=== PATIENT | female | born 1985 ===

== ENCOUNTER 2018-01-03 06:02 | Inpatient (IN) ==
[2018-01-03] MEDS ORDERED: FAMOTIDINE 20 MG/2 ML VIAL IV STA (06:32)
[2018-01-03] MEDS ORDERED: SODIUM CHLORIDE 0.9% 1,000 ML IV STA (06:32)
[2018-01-03] MEDS ORDERED: fentaNYL 100 MCG/2 ML VIAL IV STA (06:32)
[2018-01-03] MEDS ORDERED: ONDANSETRON 4 MG/2 ML VIAL IV STA (06:32)
[2018-01-03] MEDS ORDERED: cefOXitin 2,000 MG in SYRINGE 1 EACH IV ONE ×2 (07:32→07:40)
[2018-01-03] MEDS ORDERED: HYDROmorphone 2 MG/1 ML VIAL IV PRN ×2 (07:33)
[2018-01-03] MEDS ORDERED: METOCLOPRAMIDE 10 MG/2 ML VIAL ONE (07:56)
[2018-01-03] MEDS ORDERED: BUPIVACAINE MPF 0.25% /EPI 30 ML VIAL ONE (08:00)
[2018-01-03] MEDS ORDERED: LIDOCAINE 1%/EPI INJ 20 ML VIAL ONE (08:01)
[2018-01-03] MEDS ORDERED: TISSUE ADHESIVE 1 EACH APPLICATOR TOP ONE (08:03)
[2018-01-03] MEDS ORDERED: PROPOFOL 200 MG/20 ML VIAL IV ONE (09:24)
[2018-01-03] MEDS ORDERED: NEOSTIGMINE 10 MG/10 ML VIAL ONE (09:24)
[2018-01-03] MEDS ORDERED: KETOROLAC 30 MG/1 ML VIAL ONE (09:24)
[2018-01-03] MEDS ORDERED: DESFLURANE 1 UNIT/15 MINUTE INH ONE (09:24)
[2018-01-03] MEDS ORDERED: SUCCINYLCHOLINE 200 MG/10 ML VIAL ONE (09:24)
[2018-01-03] MEDS ORDERED: PROMETHAZINE 25 MG/1 ML VIAL ONE (09:24)
[2018-01-03] MEDS ORDERED: LACTATED RINGERS 1,000 ML IV ONE (09:24)
[2018-01-03] MEDS ORDERED: ROCURONIUM 100 MG/10 ML VIAL IV ONE (09:24)
[2018-01-03] MEDS ORDERED: GLYCOPYRROLATE 0.4 MG/2 ML VIAL ONE (09:24)
[2018-01-03] MEDS ORDERED: hydrALAZINE 20 MG/1 ML VIAL IV STA (09:41)
[2018-01-03] MEDS ORDERED: hydrALAZINE 20 MG/1 ML VIAL ONE (09:42)
[2018-01-03] MEDS: MORPHINE 4 MG/1 ML VIAL IV PRN ×2 (14:32→19:46)
[2018-01-03] MEDS: ACETAMINOPHEN 325 MG TABLET PO PRN (16:33)
[2018-01-03] MEDS: LACTATED RINGERS 1,000 ML IV SCH ×2 (16:34→16:37)
[2018-01-03] MEDS: PANTOPRAZOLE 40 MG TABLET PO SCH (16:34)
[2018-01-03] MEDS: INSULIN NPH/REGULAR 70/30 100 UNIT/ML SUBCUT SCH (19:09)
[2018-01-03] MEDS: LATANOPROST 0.005% OPH SOLN 2.5 ML BOTTLE BOTH EYES SCH (21:15)
[2018-01-04] MEDS: LACTATED RINGERS 1,000 ML IV SCH ×3 (01:09→16:08)
[2018-01-04] MEDS: ONDANSETRON 4 MG/2 ML VIAL IV PRN (05:30)
[2018-01-04 05:46] LABS: Basophils % 0.1 % (0.0-0.8); Eosinophils % 0.1 % (0.00-10.9); Hematocrit 21.4 VOL% (35.7-47.0); Immature Granulocytes % 0.9 %; Immature Granulocytes Absolute 0.13 #; Lymphocytes # 2.4 10*3/uL (1.4-4.0); Lymphocytes % 16.4 % (21.3-54.2); Mean Corpuscular HGB Conc 32.7 GM/DL (32-36); Mean Corpuscular Hemoglobin 32 PG (27-34); Mean Corpuscular Volume 98.6 FL (87-102); Mean Platelet Volume 9.2 FL (9.6-12.0); Monocytes % 6.8 % (1.7-12.7); Neutrophils # 11.2 10*3/uL (1.4-7.4); Neutrophils % 75.7 % (38.7-73.9); Platelet Count 396 T/CUMM (130-400); Red Blood Count 2.17 MC/CUMM (3.8-5.5); Red Cell Distribution Width 13.9 % (9.3-17.3); White Blood Count 14.7 T/CUMM (4-12)
[2018-01-04 06:06] LABS: Calcium 6.3 MG/DL (8.5-10.1); Osmolality,Calculated 285.4 MOS/KG (273-304); Potassium 3.2 MMOL/L (3.5-5.1)
[2018-01-04] MEDS ORDERED: SODIUM CHLORIDE 0.9% 1,000 ML IV PRN (07:09)
[2018-01-04] MEDS: PANTOPRAZOLE 40 MG TABLET PO SCH (09:03)
[2018-01-04] MEDS: FUROSEMIDE 40 MG TABLET PO SCH (09:03)
[2018-01-04] MEDS: INSULIN NPH/REGULAR 70/30 100 UNIT/ML SUBCUT SCH ×2 (09:04→15:50)
[2018-01-04] MEDS: ACETAMINOPHEN 325 MG TABLET PO PRN (10:56)
[2018-01-04] MEDS: MORPHINE 4 MG/1 ML VIAL IV PRN ×2 (17:59→20:53)
[2018-01-04] MEDS: LATANOPROST 0.005% OPH SOLN 2.5 ML BOTTLE BOTH EYES SCH (20:54)
[2018-01-05] MEDS: LACTATED RINGERS 1,000 ML IV SCH ×3 (00:15→21:22)
[2018-01-05] MEDS: MORPHINE 4 MG/1 ML VIAL IV PRN ×2 (00:15→21:29)
[2018-01-05] MEDS: ONDANSETRON 4 MG/2 ML VIAL IV PRN ×2 (04:16→15:13)
[2018-01-05 05:52] LABS: Basophils % 0.1 % (0.0-0.8); Eosinophils # 0.1 10*3/uL (0.0-0.87); Eosinophils % 0.4 % (0.00-10.9); Hemoglobin 9.1 GM/DL (12.0-16.0); Immature Granulocytes % 1.5 %; Lymphocytes # 2.1 10*3/uL (1.4-4.0); Lymphocytes % 15.6 % (21.3-54.2); Mean Corpuscular HGB Conc 33.7 GM/DL (32-36); Mean Corpuscular Hemoglobin 31 PG (27-34); Mean Corpuscular Volume 91.8 FL (87-102); Mean Platelet Volume 9.4 FL (9.6-12.0); Neutrophils # 10.2 10*3/uL (1.4-7.4); Neutrophils % 75.4 % (38.7-73.9); Platelet Count 411 T/CUMM (130-400); Red Blood Count 2.94 MC/CUMM (3.8-5.5); Red Cell Distribution Width 15.2 % (9.3-17.3); White Blood Count 13.5 T/CUMM (4-12)
[2018-01-05] MEDS: PANTOPRAZOLE 40 MG TABLET PO SCH (08:46)
[2018-01-05] MEDS: FUROSEMIDE 40 MG TABLET PO SCH (08:46)
[2018-01-05] MEDS ORDERED: IRON SUCROSE 300 MG in SODIUM CHLORIDE 0.9% 100 ML IV ONE (09:00)
[2018-01-05] MEDS ORDERED: ALBUTEROL 2.5 MG/3 ML NEB RESP TX PRN (09:00)
[2018-01-05] MEDS: INSULIN NPH/REGULAR 70/30 100 UNIT/ML SUBCUT SCH ×2 (09:06→16:42)
[2018-01-05 10:49] LABS: Calcium 6.6 MG/DL (8.5-10.1); Osmolality,Calculated 284.4 MOS/KG (273-304); Potassium 3.5 MMOL/L (3.5-5.1)
[2018-01-05 12:13] LABS: Hematocrit 27.7 VOL% (35.7-47.0); Hemoglobin 9.5 GM/DL (12.0-16.0)
[2018-01-05] MEDS: ACETAMINOPHEN 325 MG TABLET PO PRN (17:43)
[2018-01-05] MEDS ORDERED: LATANOPROST 0.005% OPH SOLN 2.5 ML BOTTLE BOTH EYES SCH (21:00)
[2018-01-05] MEDS: LATANOPROST 0.005% OPH SOLN 2.5 ML BOTTLE BOTH EYES SCH (21:21)
[2018-01-05] MEDS: cloNIDine 0.1 MG TABLET PO SCH (21:21)
[2018-01-06 05:45] LABS: Basophils % 0.3 % (0.0-0.8); Eosinophils # 0.1 10*3/uL (0.0-0.87); Eosinophils % 0.8 % (0.00-10.9); Hemoglobin 8.9 GM/DL (12.0-16.0); Immature Granulocytes % 1.8 %; Immature Granulocytes Absolute 0.21 #; Lymphocytes # 1.7 10*3/uL (1.4-4.0); Lymphocytes % 13.9 % (21.3-54.2); Mean Corpuscular HGB Conc 34.2 GM/DL (32-36); Mean Corpuscular Hemoglobin 31 PG (27-34); Mean Corpuscular Volume 91.2 FL (87-102); Mean Platelet Volume 9.3 FL (9.6-12.0); Monocytes # 0.8 10*3/uL (0.11-0.8); Monocytes % 6.4 % (1.7-12.7); Neutrophils # 9.2 10*3/uL (1.4-7.4); Neutrophils % 76.8 % (38.7-73.9); Platelet Count 442 T/CUMM (130-400); Red Blood Count 2.85 MC/CUMM (3.8-5.5)
[2018-01-06 06:10] LABS: Calcium 7.1 MG/DL (8.5-10.1); Osmolality,Calculated 279.7 MOS/KG (273-304)
[2018-01-06] MEDS: ACETAMINOPHEN 325 MG TABLET PO PRN (06:33)
[2018-01-06] MEDS ORDERED: IRON SUCROSE 300 MG in SODIUM CHLORIDE 0.9% 100 ML IV ONE (08:00)
[2018-01-06 09:10] LABS: Calcium 7.1 MG/DL (8.5-10.1); Osmolality,Calculated 281.5 MOS/KG (273-304); Potassium 3.2 MMOL/L (3.5-5.1)
[2018-01-06] MEDS ORDERED: MAGNESIUM SULF RIDER 4 GM in PREMIX 1 EACH IV PRN (09:16)
[2018-01-06] MEDS ORDERED: MAGNESIUM SULF RIDER 2 GM in PREMIX 1 EACH IV PRN (09:16)
[2018-01-06] MEDS: INSULIN NPH/REGULAR 70/30 100 UNIT/ML SUBCUT SCH (09:25)
[2018-01-06] MEDS: FUROSEMIDE 40 MG TABLET PO SCH (09:29)
[2018-01-06] MEDS: cloNIDine 0.1 MG TABLET PO SCH (09:29)
[2018-01-06] MEDS: PANTOPRAZOLE 40 MG TABLET PO SCH (09:29)
[2018-01-06] MEDS ORDERED: MAGNESIUM SULF RIDER 4 GM in PREMIX 1 EACH IV ONE (09:30)
[2018-01-06] MEDS: LACTATED RINGERS 1,000 ML IV SCH (10:17)
[2018-01-06] MEDS: POTASSIUM CHLORIDE 20 MEQ TABLET PO PRN ×3 (10:19→15:13)
[2018-01-06] MEDS ORDERED: cloNIDine 0.1 MG TABLET PO ONE (11:02)
[2018-01-06 12:12] VITALS: BP 166/102
[2018-01-06] MEDS ORDERED: cloNIDine 0.1 MG TABLET PO SCH (21:00)
== END 2018-01-06 15:30 | disposition home or self-care (01) | DRG 225 ==
LOC: EDUNIT# → EDBD → N.ED 06:02 → N.2E 07:17 → N.EDINP 07:33 → N.2E 12:10
PROVIDERS: ADMIT Surgery; ATTEND Surgery

== ENCOUNTER 2018-03-14 07:59 | Inpatient (IN) ==
[2018-03-14] MEDS ORDERED: GLUCAGON 1 MG VIAL IM PRN (10:41)
[2018-03-14] MEDS ORDERED: DEXTROSE 50% 25 GM/50 ML VIAL IV PRN (10:41)
[2018-03-14] MEDS ORDERED: ZALEPLON 5 MG CAPSULE PO PRN (10:43)
[2018-03-14] MEDS ORDERED: PROMETHAZINE 25 MG TABLET PO PRN (10:43)
[2018-03-14] MEDS ORDERED: DOCUSATE SODIUM 100 MG CAPSULE PO PRN (10:43)
[2018-03-14] MEDS ORDERED: BISACODYL 5 MG TABLET PO PRN (10:43)
[2018-03-14] MEDS ORDERED: guaiFENesin/DM ER 600-30 MG TABLET PO PRN (10:43)
[2018-03-14 11:02] LABS: Basophils # 0.1 10*3/uL (0.0-0.2); Basophils % 0.4 % (0.0-0.8); Eosinophils % 0.3 % (0.00-10.9); Hematocrit 33.2 VOL% (35.7-47.0); Hemoglobin 11.4 GM/DL (12.0-16.0); Immature Granulocytes % 0.4 %; Immature Granulocytes Absolute 0.05 #; Lymphocytes # 2.9 10*3/uL (1.4-4.0); Mean Corpuscular HGB Conc 34.3 GM/DL (32-36); Mean Corpuscular Hemoglobin 32 PG (27-34); Mean Corpuscular Volume 93.8 FL (87-102); Mean Platelet Volume 9.4 FL (9.6-12.0); Monocytes # 0.7 10*3/uL (0.11-0.8); Monocytes % 5.3 % (1.7-12.7); Neutrophils # 9.5 10*3/uL (1.4-7.4); Neutrophils % 71.6 % (38.7-73.9); Platelet Count 570 T/CUMM (130-400); Red Blood Count 3.54 MC/CUMM (3.8-5.5); Red Cell Distribution Width 13.8 % (9.3-17.3); White Blood Count 13.3 T/CUMM (4-12)
[2018-03-14 11:10] LABS: PT Patient Result 10.6 SECS
[2018-03-14] MEDS: INSULIN LISPRO 100 UNIT/ML SUBCUT SCH ×3 (11:25→21:12)
[2018-03-14 11:39] LABS: Albumin 3.3 G/DL (3.4-5.0); Bilirubin,Total 0.7 MG/DL (0.2-1.0); Calcium 7.1 MG/DL (8.5-10.1); Osmolality,Calculated 297.5 MOS/KG (273-304); Potassium 3.1 MMOL/L (3.5-5.1); Total Protein 9.4 G/DL (6.4-8.3)
[2018-03-14] MEDS ORDERED: CALCIUM GLUCONATE 2,000 MG in SODIUM CHLORIDE 0.9% 100 ML IV PRN (14:54)
[2018-03-14] MEDS ORDERED: POTASSIUM CHLORIDE 20 MEQ TABLET PO ONE (14:54)
[2018-03-14] MEDS: ENOXAPARIN 30 MG/0.3 ML SYRINGE SUBCUT SCH (21:12)
[2018-03-14] MEDS: ONDANSETRON 4 MG/2 ML VIAL IV PRN (21:13)
[2018-03-15 06:45] LABS: Basophils # 0.1 10*3/uL (0.0-0.2); Basophils % 0.4 % (0.0-0.8); Eosinophils # 0.2 10*3/uL (0.0-0.87); Eosinophils % 1.3 % (0.00-10.9); Hematocrit 30.5 VOL% (35.7-47.0); Hemoglobin 10.3 GM/DL (12.0-16.0); Immature Granulocytes % 0.5 %; Immature Granulocytes Absolute 0.06 #; Lymphocytes # 3.4 10*3/uL (1.4-4.0); Lymphocytes % 30.2 % (21.3-54.2); Mean Corpuscular HGB Conc 33.8 GM/DL (32-36); Mean Corpuscular Hemoglobin 32 PG (27-34); Mean Corpuscular Volume 94.4 FL (87-102); Mean Platelet Volume 9.4 FL (9.6-12.0); Monocytes # 0.8 10*3/uL (0.11-0.8); Monocytes % 6.7 % (1.7-12.7); Neutrophils # 6.8 10*3/uL (1.4-7.4); Neutrophils % 60.9 % (38.7-73.9); Platelet Count 510 T/CUMM (130-400); Red Blood Count 3.23 MC/CUMM (3.8-5.5); Red Cell Distribution Width 14.3 % (9.3-17.3); White Blood Count 11.2 T/CUMM (4-12)
[2018-03-15 07:13] LABS: Albumin 2.7 G/DL (3.4-5.0); Bilirubin,Total 0.7 MG/DL (0.2-1.0); Calcium 6.9 MG/DL (8.5-10.1); Osmolality,Calculated 299.4 MOS/KG (273-304); Potassium 3.5 MMOL/L (3.5-5.1); Total Protein 7.8 G/DL (6.4-8.3)
[2018-03-15] MEDS: INSULIN LISPRO 100 UNIT/ML SUBCUT SCH ×4 (07:23→20:17)
[2018-03-15 07:33] LABS: Parathyroid Hormone Intact 641.7 PG/ML (18.4-80.1)
[2018-03-15] MEDS: PANTOPRAZOLE 40 MG TABLET PO SCH (08:07)
[2018-03-15] MEDS ORDERED: CALCIUM GLUCONATE 2,000 MG in SODIUM CHLORIDE 0.9% 100 ML IV PRN (09:21)
[2018-03-15 09:29] LABS: Hepatitis A Ab IgM Quant 0.24 Index; Hepatitis A Ab IgM Result Negative (Negative); Hepatitis B Core IgM Quant < 0.05 Index; Hepatitis B Core IgM Result Negative (Negative); Hepatitis B Surface Ag Result Negative (Negative); Hepatitis C Virus Ab Quant 0.06 Index; Hepatitis C Virus Ab Result Negative (Negative)
[2018-03-15] MEDS: CALCIUM ACETATE 667 MG CAPSULE PO SCH ×2 (12:20→16:14)
[2018-03-15] MEDS: ENOXAPARIN 30 MG/0.3 ML SYRINGE SUBCUT SCH (21:03)
[2018-03-16] MEDS ORDERED: ceFAZolin 1,000 MG in SYRINGE 1 EACH IV ONE (06:30)
[2018-03-16 06:50] LABS: Basophils # 0.1 10*3/uL (0.0-0.2); Basophils % 0.4 % (0.0-0.8); Eosinophils # 0.1 10*3/uL (0.0-0.87); Eosinophils % 0.5 % (0.00-10.9); Hematocrit 31.4 VOL% (35.7-47.0); Hemoglobin 10.4 GM/DL (12.0-16.0); Immature Granulocytes % 0.6 %; Immature Granulocytes Absolute 0.07 #; Lymphocytes # 2.2 10*3/uL (1.4-4.0); Lymphocytes % 17.2 % (21.3-54.2); Mean Corpuscular HGB Conc 33.1 GM/DL (32-36); Mean Corpuscular Hemoglobin 32 PG (27-34); Mean Corpuscular Volume 95.4 FL (87-102); Mean Platelet Volume 9.3 FL (9.6-12.0); Monocytes # 0.7 10*3/uL (0.11-0.8); Monocytes % 5.5 % (1.7-12.7); Neutrophils # 9.6 10*3/uL (1.4-7.4); Neutrophils % 75.8 % (38.7-73.9); Platelet Count 510 T/CUMM (130-400); Red Blood Count 3.29 MC/CUMM (3.8-5.5); Red Cell Distribution Width 13.8 % (9.3-17.3); White Blood Count 12.6 T/CUMM (4-12)
[2018-03-16 07:24] LABS: Calcium 7.2 MG/DL (8.5-10.1); Osmolality,Calculated 300.5 MOS/KG (273-304); Potassium 3.8 MMOL/L (3.5-5.1)
[2018-03-16] MEDS: INSULIN LISPRO 100 UNIT/ML SUBCUT SCH ×3 (07:52→16:09)
[2018-03-16] MEDS: CALCIUM ACETATE 667 MG CAPSULE PO SCH ×3 (07:52→16:09)
[2018-03-16] MEDS: PANTOPRAZOLE 40 MG TABLET PO SCH (08:00)
[2018-03-16] MEDS ORDERED: MAGNESIUM SULF RIDER 4 GM in PREMIX 1 EACH IV PRN (09:56)
[2018-03-16] MEDS: MAGNESIUM SULF RIDER 2 GM in PREMIX 1 EACH IV PRN ×2 (10:30→12:50)
[2018-03-16] MEDS ORDERED: SODIUM CHLORIDE 0.9% 500 ML IV ONE (10:38)
[2018-03-16] MEDS: METOPROLOL SUCCINATE XL 50 MG TABLET PO SCH (11:15)
[2018-03-16] MEDS: ACETAMINOPHEN 325 MG TABLET PO PRN (12:19)
[2018-03-16 17:14] LABS: Apearance,Urine CLOUDY (Clear); Bacteria,Urine Many /HPF (Few); Bilirubin,Urine Negative (Negative); Blood, Urine Moderate mg/dL (Negative); Glucose,Urine (UA) 50 mg/dL (Negative); Ketones,Urine Negative (Negative); Nitrite,Urine Negative (Negative); Protein,Urine >=500 MG/DL; Squamous Epithelial Cell,Urine Occasional /HPF (0-10); Urine Color Yellow (Yellow); Urine Urobilinogen < 2.0 EU/DL (0.2-1.0); WBC,Urine 29 /HPF (0-6)
[2018-03-17] MEDS: INSULIN LISPRO 100 UNIT/ML SUBCUT SCH ×5 (00:39→21:02)
[2018-03-17] MEDS: ENOXAPARIN 30 MG/0.3 ML SYRINGE SUBCUT SCH ×2 (00:40→21:03)
[2018-03-17 08:21] LABS: Basophils # 0.1 10*3/uL (0.0-0.2); Basophils % 0.5 % (0.0-0.8); Eosinophils # 0.1 10*3/uL (0.0-0.87); Eosinophils % 0.9 % (0.00-10.9); Hematocrit 29.2 VOL% (35.7-47.0); Hemoglobin 9.7 GM/DL (12.0-16.0); Immature Granulocytes % 0.5 %; Immature Granulocytes Absolute 0.07 #; Lymphocytes # 2.8 10*3/uL (1.4-4.0); Lymphocytes % 21.8 % (21.3-54.2); Mean Corpuscular HGB Conc 33.2 GM/DL (32-36); Mean Corpuscular Hemoglobin 32 PG (27-34); Mean Corpuscular Volume 94.8 FL (87-102); Mean Platelet Volume 9.4 FL (9.6-12.0); Monocytes # 0.7 10*3/uL (0.11-0.8); Monocytes % 5.8 % (1.7-12.7); Neutrophils % 70.5 % (38.7-73.9); Platelet Count 497 T/CUMM (130-400); Red Blood Count 3.08 MC/CUMM (3.8-5.5); Red Cell Distribution Width 13.7 % (9.3-17.3); White Blood Count 12.8 T/CUMM (4-12)
[2018-03-17 08:56] LABS: Calcium 7.4 MG/DL (8.5-10.1); Potassium 3.5 MMOL/L (3.5-5.1)
[2018-03-17] MEDS: METOPROLOL SUCCINATE XL 50 MG TABLET PO SCH (10:51)
[2018-03-17] MEDS: CALCIUM ACETATE 667 MG CAPSULE PO SCH ×3 (10:51→17:24)
[2018-03-17] MEDS: cefTRIAXone 1,000 MG in SYRINGE 1 EACH IV SCH (10:52)
[2018-03-17] MEDS: PANTOPRAZOLE 40 MG TABLET PO SCH (10:52)
[2018-03-17] MEDS: INSULIN GLARGINE 100 UNIT/ML SUBCUT SCH (21:03)
[2018-03-18 05:32] LABS: Basophils # 0.1 10*3/uL (0.0-0.2); Basophils % 0.5 % (0.0-0.8); Eosinophils # 0.1 10*3/uL (0.0-0.87); Hematocrit 29.8 VOL% (35.7-47.0); Hemoglobin 10.1 GM/DL (12.0-16.0); Immature Granulocytes % 0.5 %; Immature Granulocytes Absolute 0.05 #; Lymphocytes # 3.2 10*3/uL (1.4-4.0); Lymphocytes % 30.9 % (21.3-54.2); Mean Corpuscular HGB Conc 33.9 GM/DL (32-36); Mean Corpuscular Hemoglobin 32 PG (27-34); Mean Corpuscular Volume 93.1 FL (87-102); Mean Platelet Volume 9.7 FL (9.6-12.0); Monocytes # 0.6 10*3/uL (0.11-0.8); Monocytes % 6.1 % (1.7-12.7); Neutrophils # 6.3 10*3/uL (1.4-7.4); Platelet Count 522 T/CUMM (130-400); Red Cell Distribution Width 13.5 % (9.3-17.3); White Blood Count 10.3 T/CUMM (4-12)
[2018-03-18 05:35] LABS: Calcium 7.9 MG/DL (8.5-10.1); Osmolality,Calculated 297.5 MOS/KG (273-304); Potassium 3.5 MMOL/L (3.5-5.1)
[2018-03-18] MEDS: PANTOPRAZOLE 40 MG TABLET PO SCH (08:27)
[2018-03-18] MEDS: METOPROLOL SUCCINATE XL 50 MG TABLET PO SCH (08:27)
[2018-03-18] MEDS: CALCIUM ACETATE 667 MG CAPSULE PO SCH ×3 (08:27→16:28)
[2018-03-18] MEDS: INSULIN LISPRO 100 UNIT/ML SUBCUT SCH ×4 (08:27→21:25)
[2018-03-18] MEDS: cefTRIAXone 1,000 MG in SYRINGE 1 EACH IV SCH (09:41)
[2018-03-18] MEDS: INSULIN GLARGINE 100 UNIT/ML SUBCUT SCH (21:25)
[2018-03-18] MEDS: ENOXAPARIN 30 MG/0.3 ML SYRINGE SUBCUT SCH (21:25)
[2018-03-19 06:00] LABS: Basophils # 0.1 10*3/uL (0.0-0.2); Basophils % 0.4 % (0.0-0.8); Eosinophils # 0.1 10*3/uL (0.0-0.87); Hematocrit 27.9 VOL% (35.7-47.0); Hemoglobin 9.4 GM/DL (12.0-16.0); Immature Granulocytes % 0.5 %; Immature Granulocytes Absolute 0.06 #; Lymphocytes # 3.2 10*3/uL (1.4-4.0); Lymphocytes % 28.5 % (21.3-54.2); Mean Corpuscular HGB Conc 33.7 GM/DL (32-36); Mean Corpuscular Hemoglobin 32 PG (27-34); Mean Corpuscular Volume 95.2 FL (87-102); Mean Platelet Volume 9.8 FL (9.6-12.0); Monocytes # 0.7 10*3/uL (0.11-0.8); Monocytes % 6.1 % (1.7-12.7); Neutrophils # 7.1 10*3/uL (1.4-7.4); Neutrophils % 63.5 % (38.7-73.9); Platelet Count 508 T/CUMM (130-400); Red Blood Count 2.93 MC/CUMM (3.8-5.5); Red Cell Distribution Width 13.8 % (9.3-17.3); White Blood Count 11.3 T/CUMM (4-12)
[2018-03-19 06:29] LABS: Osmolality,Calculated 301.1 MOS/KG (273-304); Potassium 3.8 MMOL/L (3.5-5.1)
[2018-03-19] MEDS: PANTOPRAZOLE 40 MG TABLET PO SCH (09:53)
[2018-03-19] MEDS: INSULIN LISPRO 100 UNIT/ML SUBCUT SCH ×4 (09:53→21:04)
[2018-03-19] MEDS: METOPROLOL SUCCINATE XL 50 MG TABLET PO SCH (09:53)
[2018-03-19] MEDS: CALCIUM ACETATE 667 MG CAPSULE PO SCH ×3 (09:53→17:38)
[2018-03-19] MEDS: cefTRIAXone 1,000 MG in SYRINGE 1 EACH IV SCH (10:07)
[2018-03-19] MEDS ORDERED: ceFAZolin 1,000 MG in SYRINGE 1 EACH IV ONE (10:23)
[2018-03-19] MEDS: INSULIN GLARGINE 100 UNIT/ML SUBCUT SCH (22:19)
[2018-03-19] MEDS: ENOXAPARIN 30 MG/0.3 ML SYRINGE SUBCUT SCH (22:20)
[2018-03-20] MEDS ORDERED: ceFAZolin 1,000 MG in SYRINGE 1 EACH IV ONE (06:30)
[2018-03-20] MEDS: INSULIN LISPRO 100 UNIT/ML SUBCUT SCH ×4 (08:32→21:00)
[2018-03-20] MEDS: METOPROLOL SUCCINATE XL 50 MG TABLET PO SCH (10:00)
[2018-03-20] MEDS: cefTRIAXone 1,000 MG in SYRINGE 1 EACH IV SCH (10:00)
[2018-03-20] MEDS: CALCIUM ACETATE 667 MG CAPSULE PO SCH ×3 (10:00→17:07)
[2018-03-20] MEDS: PANTOPRAZOLE 40 MG TABLET PO SCH (10:00)
[2018-03-20] MEDS: amLODIPine 5 MG TABLET PO SCH (15:19)
[2018-03-20] MEDS: INSULIN GLARGINE 100 UNIT/ML SUBCUT SCH (20:59)
[2018-03-20] MEDS: ENOXAPARIN 30 MG/0.3 ML SYRINGE SUBCUT SCH (21:00)
[2018-03-21 05:21] LABS: Basophils # 0.1 10*3/uL (0.0-0.2); Basophils % 0.4 % (0.0-0.8); Eosinophils # 0.1 10*3/uL (0.0-0.87); Eosinophils % 0.6 % (0.00-10.9); Hemoglobin 8.9 GM/DL (12.0-16.0); Immature Granulocytes % 0.3 %; Immature Granulocytes Absolute 0.04 #; Lymphocytes % 31.9 % (21.3-54.2); Mean Corpuscular Hemoglobin 32 PG (27-34); Mean Corpuscular Volume 96.1 FL (87-102); Mean Platelet Volume 9.5 FL (9.6-12.0); Monocytes # 0.7 10*3/uL (0.11-0.8); Monocytes % 5.3 % (1.7-12.7); Neutrophils # 7.7 10*3/uL (1.4-7.4); Neutrophils % 61.5 % (38.7-73.9); Platelet Count 438 T/CUMM (130-400); Red Blood Count 2.81 MC/CUMM (3.8-5.5); Red Cell Distribution Width 13.3 % (9.3-17.3); White Blood Count 12.6 T/CUMM (4-12)
[2018-03-21 05:23] LABS: Basophils % 0.3 % (0.0-0.8); Eosinophils # 0.1 10*3/uL (0.0-0.87); Eosinophils % 0.6 % (0.00-10.9); Hematocrit 26.6 VOL% (35.7-47.0); Immature Granulocytes % 0.4 %; Immature Granulocytes Absolute 0.05 #; Lymphocytes # 4.1 10*3/uL (1.4-4.0); Mean Corpuscular HGB Conc 33.8 GM/DL (32-36); Mean Corpuscular Hemoglobin 32 PG (27-34); Mean Corpuscular Volume 93.7 FL (87-102); Mean Platelet Volume 9.7 FL (9.6-12.0); Monocytes # 0.6 10*3/uL (0.11-0.8); Monocytes % 4.9 % (1.7-12.7); Neutrophils # 7.5 10*3/uL (1.4-7.4); Neutrophils % 60.8 % (38.7-73.9); Platelet Count 465 T/CUMM (130-400); Red Blood Count 2.84 MC/CUMM (3.8-5.5); Red Cell Distribution Width 13.4 % (9.3-17.3); White Blood Count 12.4 T/CUMM (4-12)
[2018-03-21 05:40] LABS: Albumin 2.4 G/DL (3.4-5.0); Bilirubin,Total 0.4 MG/DL (0.2-1.0); Calcium 8.4 MG/DL (8.5-10.1); Osmolality,Calculated 298.4 MOS/KG (273-304); Potassium 3.6 MMOL/L (3.5-5.1); Total Protein 6.7 G/DL (6.4-8.3)
[2018-03-21 05:45] LABS: % Iron Saturation 36.1 % (18-50)
[2018-03-21 05:53] LABS: Folate 8.2 NG/ML (5.4-24.0); Vitamin B12 363 PG/ML (211-911)
[2018-03-21] MEDS ORDERED: ceFAZolin 1,000 MG in SYRINGE 1 EACH IV ONE (06:00)
[2018-03-21 07:02] LABS: Folate 6.5 NG/ML (5.4-24.0)
[2018-03-21] MEDS: INSULIN LISPRO 100 UNIT/ML SUBCUT SCH ×4 (07:59→21:42)
[2018-03-21] MEDS ORDERED: MAGNESIUM SULF RIDER 2 GM in PREMIX 1 EACH IV ONE (08:38)
[2018-03-21 08:46] LABS: Sedimentation Rate-Westergren 123 MM/HR (0-20)
[2018-03-21] MEDS ORDERED: CYANOCOBALAMIN 1000 MCG/1 ML VIAL IM ONE (09:00)
[2018-03-21] MEDS: METOPROLOL SUCCINATE XL 50 MG TABLET PO SCH (09:15)
[2018-03-21] MEDS: amLODIPine 5 MG TABLET PO SCH (09:15)
[2018-03-21] MEDS: cefTRIAXone 1,000 MG in SYRINGE 1 EACH IV SCH ×2 (09:15→10:51)
[2018-03-21 09:42] LABS: Hemoglobin A1 (Alkaline) 97.7 % (96.5-98.5); Hemoglobin A2 (Alkaline) 2.3 % (1.5-3.5)
[2018-03-21] MEDS: FOLIC ACID 1 MG TABLET PO SCH ×2 (09:51→21:42)
[2018-03-21] MEDS: PANTOPRAZOLE 40 MG TABLET PO SCH (09:51)
[2018-03-21] MEDS: CALCIUM ACETATE 667 MG CAPSULE PO SCH ×3 (09:51→16:56)
[2018-03-21] MEDS: CYANOCOBALAMIN 500 MCG TABLET PO SCH ×2 (09:52→21:42)
[2018-03-21] MEDS: CHOLECALCIFEROL 1,000 UNIT TABLET PO SCH (09:52)
[2018-03-21] MEDS ORDERED: VANCOMYCIN INJ 1,000 MG in SODIUM CHLORIDE 0.9% 250 ML IV PRN (18:40)
[2018-03-21] MEDS: metroNIDAZOLE INJ 500 MG in PREMIX 1 EACH IV SCH (21:40)
[2018-03-21] MEDS: ENOXAPARIN 30 MG/0.3 ML SYRINGE SUBCUT SCH (21:42)
[2018-03-21] MEDS: INSULIN GLARGINE 100 UNIT/ML SUBCUT SCH (21:55)
[2018-03-21] MEDS ORDERED: VANCOMYCIN INJ 1,000 MG in SODIUM CHLORIDE 0.9% 250 ML IV ONE (22:00)
[2018-03-21] MEDS: PENICILLIN G POTASSIUM INJ 2,000,000 UNIT in SODIUM CHLORIDE 0.9% 100 ML IV SCH (22:46)
[2018-03-22] MEDS: ACETAMINOPHEN 325 MG TABLET PO PRN
[2018-03-22] MEDS: PENICILLIN G POTASSIUM INJ 2,000,000 UNIT in SODIUM CHLORIDE 0.9% 100 ML IV SCH ×6 (01:48→22:30)
[2018-03-22] MEDS: metroNIDAZOLE INJ 500 MG in PREMIX 1 EACH IV SCH ×3 (03:10→21:11)
[2018-03-22] MEDS: INSULIN LISPRO 100 UNIT/ML SUBCUT SCH ×4 (08:02→21:11)
[2018-03-22] MEDS: FOLIC ACID 1 MG TABLET PO SCH ×2 (08:04→21:10)
[2018-03-22] MEDS: CALCIUM ACETATE 667 MG CAPSULE PO SCH ×3 (08:04→18:23)
[2018-03-22] MEDS: amLODIPine 5 MG TABLET PO SCH (08:10)
[2018-03-22] MEDS: METOPROLOL SUCCINATE XL 50 MG TABLET PO SCH (08:10)
[2018-03-22] MEDS: PANTOPRAZOLE 40 MG TABLET PO SCH (08:10)
[2018-03-22] MEDS ORDERED: LIDOCAINE 1%/EPI INJ 20 ML VIAL ONE (13:03)
[2018-03-22] MEDS ORDERED: BUPIVACAINE 0.25% /EPI 10 ML VIAL ONE (13:03)
[2018-03-22] MEDS ORDERED: HEPARIN 5,000 UNIT/1 ML VIAL ONE (13:04)
[2018-03-22] MEDS ORDERED: SODIUM CHLORIDE 0.9% 100 ML IV ONE (14:13)
[2018-03-22] MEDS ORDERED: PROPOFOL 200 MG/20 ML VIAL IV ONE (14:13)
[2018-03-22] MEDS ORDERED: MIDAZOLAM 2 MG/2 ML VIAL ONE (14:13)
[2018-03-22] MEDS ORDERED: fentaNYL 100 MCG/2 ML VIAL ONE (14:13)
[2018-03-22] MEDS: HYDROmorphone 2 MG/1 ML VIAL IV PRN ×2 (14:20→14:25)
[2018-03-22] MEDS: CYANOCOBALAMIN 500 MCG TABLET PO SCH ×2 (15:01→21:10)
[2018-03-22] MEDS: CHOLECALCIFEROL 1,000 UNIT TABLET PO SCH (15:02)
[2018-03-22] MEDS ORDERED: HEPARIN 10,000 UNIT/10 ML VIAL IV SCH (16:00)
[2018-03-22] MEDS: ONDANSETRON 4 MG/2 ML VIAL IV PRN (17:44)
[2018-03-22] MEDS: ENOXAPARIN 30 MG/0.3 ML SYRINGE SUBCUT SCH (21:10)
[2018-03-22] MEDS: INSULIN GLARGINE 100 UNIT/ML SUBCUT SCH (21:11)
[2018-03-23] MEDS: PENICILLIN G POTASSIUM INJ 2,000,000 UNIT in SODIUM CHLORIDE 0.9% 100 ML IV SCH ×4 (02:44→18:54)
[2018-03-23] MEDS: metroNIDAZOLE INJ 500 MG in PREMIX 1 EACH IV SCH ×2 (04:05→12:01)
[2018-03-23 05:45] LABS: Basophils # 0.1 10*3/uL (0.0-0.2); Basophils % 0.5 % (0.0-0.8); Eosinophils % 0.3 % (0.00-10.9); Hematocrit 27.2 VOL% (35.7-47.0); Hemoglobin 8.8 GM/DL (12.0-16.0); Immature Granulocytes % 0.5 %; Immature Granulocytes Absolute 0.05 #; Lymphocytes # 2.7 10*3/uL (1.4-4.0); Lymphocytes % 24.5 % (21.3-54.2); Mean Corpuscular HGB Conc 32.4 GM/DL (32-36); Mean Corpuscular Hemoglobin 31 PG (27-34); Mean Corpuscular Volume 96.5 FL (87-102); Mean Platelet Volume 9.7 FL (9.6-12.0); Monocytes # 0.8 10*3/uL (0.11-0.8); Monocytes % 6.9 % (1.7-12.7); Neutrophils # 7.5 10*3/uL (1.4-7.4); Neutrophils % 67.3 % (38.7-73.9); Platelet Count 472 T/CUMM (130-400); Red Blood Count 2.82 MC/CUMM (3.8-5.5); Red Cell Distribution Width 13.5 % (9.3-17.3); White Blood Count 11.1 T/CUMM (4-12)
[2018-03-23 06:08] LABS: Albumin 2.4 G/DL (3.4-5.0); Bilirubin,Total 1.2 MG/DL (0.2-1.0); Osmolality,Calculated 285.7 MOS/KG (273-304); Potassium 3.9 MMOL/L (3.5-5.1)
[2018-03-23] MEDS: FOLIC ACID 1 MG TABLET PO SCH (08:40)
[2018-03-23] MEDS: PANTOPRAZOLE 40 MG TABLET PO SCH (08:40)
[2018-03-23] MEDS: METOPROLOL SUCCINATE XL 50 MG TABLET PO SCH (08:40)
[2018-03-23] MEDS: amLODIPine 5 MG TABLET PO SCH (08:40)
[2018-03-23] MEDS: CHOLECALCIFEROL 1,000 UNIT TABLET PO SCH (08:40)
[2018-03-23] MEDS: CYANOCOBALAMIN 500 MCG TABLET PO SCH (08:41)
[2018-03-23] MEDS: CALCIUM ACETATE 667 MG CAPSULE PO SCH ×3 (08:41→19:01)
[2018-03-23] MEDS: INSULIN LISPRO 100 UNIT/ML SUBCUT SCH ×3 (08:43→18:53)
[2018-03-23] MEDS: ACETAMINOPHEN 325 MG TABLET PO PRN (10:36)
[2018-03-23 18:45] VITALS: BP 143/86
== END 2018-03-23 19:26 | disposition home or self-care (01) | DRG 282 ==
LOC: SUATTDRO 09:37 → N.2W 09:37 → N.5E 11:11
PROVIDERS: ADMIT Internal Medicine; ATTEND Hospitalist

== ENCOUNTER 2018-12-10 22:26 | Inpatient (IN) ==
[2018-12-10 23:27] LABS: Basophils # 0.1 10*3/uL (0.0-0.2); Basophils % 0.3 % (0.0-0.8); Eosinophils % 0.1 % (0.00-10.9); Hemoglobin 11.5 GM/DL (12.0-16.0); Immature Granulocytes % 1.1 %; Lymphocytes # 2.1 10*3/uL (1.4-4.0); Lymphocytes % 7.9 % (21.3-54.2); Mean Corpuscular HGB Conc 32.9 GM/DL (32-36); Mean Corpuscular Volume 102.6 FL (87-102); Mean Platelet Volume 8.9 FL (9.6-12.0); Monocytes % 5.3 % (1.7-12.7); NRBC # 0.02 10*3/uL; Neutrophils % 85.3 % (38.7-73.9); Platelet Count 331 T/CUMM (130-400); Red Blood Count 3.41 MC/CUMM (3.8-5.5); Red Cell Distribution Width 15.7 % (9.3-17.3); White Blood Count 26.2 T/CUMM (4-12)
[2018-12-10 23:45] LABS: Albumin 2.7 G/DL (3.4-5.0); Bilirubin,Total 1.1 MG/DL (0.2-1.0); Calcium 8.1 MG/DL (8.5-10.1); Osmolality,Calculated 280.5 MOS/KG (273-304); Total Protein 7.6 G/DL (6.4-8.3)
[2018-12-11 00:08] LABS: Anisocytosis 1+; Lymphocytes 14 % (20-55); Platelet Estimate Adequate; Segmented Neutrophils 82 % (50-85); Total Cells Counted 100
[2018-12-11 00:29] LABS: Sedimentation Rate-Westergren 93 MM/HR (0-20)
[2018-12-11] MEDS ORDERED: ACETAMINOPHEN 325 MG TABLET PO PRN (01:15)
[2018-12-11] MEDS ORDERED: GLUCAGON 1 MG VIAL IM PRN (01:15)
[2018-12-11] MEDS ORDERED: DOCUSATE SODIUM 100 MG CAPSULE PO PRN (01:15)
[2018-12-11] MEDS ORDERED: DEXTROSE 50% 25 GM/50 ML SYRINGE IV PRN (01:15)
[2018-12-11] MEDS: PIPERACILLIN/TAZOBACTAM 3,375 MG in SODIUM CHLORIDE 0.9% 100 ML IV SCH ×2 (02:29→15:40)
[2018-12-11] MEDS: INSULIN REGULAR 100 UNIT/ML SUBCUT SCH ×5 (02:30→20:50)
[2018-12-11] MEDS ORDERED: POTASSIUM CHLORIDE 20 MEQ TABLET PO PRN (04:22)
[2018-12-11] MEDS ORDERED: TETANUS IMMUNE GLOBULIN 250 UNIT SYRINGE IM ONE (05:00)
[2018-12-11 05:03] LABS: Basophils # 0.1 10*3/uL (0.0-0.2); Basophils % 0.3 % (0.0-0.8); Eosinophils # 0.1 10*3/uL (0.0-0.87); Eosinophils % 0.2 % (0.00-10.9); Hematocrit 29.5 VOL% (35.7-47.0); Hemoglobin 9.6 GM/DL (12.0-16.0); Immature Granulocytes % 1.3 %; Immature Granulocytes Absolute 0.39 #; Lymphocytes # 2.4 10*3/uL (1.4-4.0); Lymphocytes % 8.4 % (21.3-54.2); Mean Corpuscular HGB Conc 32.5 GM/DL (32-36); Mean Corpuscular Volume 103.9 FL (87-102); Monocytes % 5.5 % (1.7-12.7); Neutrophils % 84.3 % (38.7-73.9); Platelet Count 377 T/CUMM (130-400); Red Blood Count 2.84 MC/CUMM (3.8-5.5); Red Cell Distribution Width 15.8 % (9.3-17.3); White Blood Count 28.9 T/CUMM (4-12)
[2018-12-11 05:30] LABS: Calcium 8.4 MG/DL (8.5-10.1); Osmolality,Calculated 283.2 MOS/KG (273-304)
[2018-12-11 05:38] LABS: Band Neutrophils 1 % (0-10); Eosinophils 1 % (0-10); Hypochromasia 1+; Lymphocytes 9 % (20-55); Platelet Estimate Adequate; Segmented Neutrophils 85 % (50-85); Total Cells Counted 100
[2018-12-11] MEDS ORDERED: CALCIUM ACETATE 667 MG CAPSULE PO SCH (08:00)
[2018-12-11] MEDS: amLODIPine 5 MG TABLET PO SCH (08:36)
[2018-12-11] MEDS: SEVELAMER CARBONATE 800 MG TABLET PO SCH ×3 (08:36→16:12)
[2018-12-11] MEDS: METOPROLOL SUCCINATE XL 50 MG TABLET PO SCH (08:36)
[2018-12-11] MEDS ORDERED: SEVOFLURANE 1 UNIT/15 MINUTE INH ONE (10:35)
[2018-12-11] MEDS ORDERED: PROPOFOL 200 MG/20 ML VIAL IV ONE (10:35)
[2018-12-11] MEDS ORDERED: fentaNYL 100 MCG/2 ML VIAL ONE (10:36)
[2018-12-11] MEDS ORDERED: PHENYLEPHRINE 1 MG/10 ML SYRINGE IV ONE (10:36)
[2018-12-11] MEDS ORDERED: MIDAZOLAM 2 MG/2 ML VIAL ONE (10:36)
[2018-12-11] MEDS ORDERED: ACETAMINOPHEN 1,000 MG/100 ML VIAL IV ONE (10:36)
[2018-12-11] MEDS ORDERED: ONDANSETRON 4 MG/2 ML VIAL ONE (10:36)
[2018-12-11] MEDS ORDERED: SODIUM CHLORIDE 0.9% 250 ML IV ONE (10:36)
[2018-12-11] MEDS ORDERED: DEXAMETHASONE 4 MG/1 ML VIAL ONE (10:36)
[2018-12-11] MEDS: FOLIC ACID 1 MG TABLET PO SCH ×2 (11:07→20:49)
[2018-12-11] MEDS: PANTOPRAZOLE 40 MG TABLET PO SCH (11:08)
[2018-12-11] MEDS: CYANOCOBALAMIN 500 MCG TABLET PO SCH ×2 (11:08→20:48)
[2018-12-11] MEDS ORDERED: VANCOMYCIN INJ 1,250 MG in SODIUM CHLORIDE 0.9% 250 ML IV ONE (17:00)
[2018-12-11] MEDS: MORPHINE 4 MG/1 ML VIAL IV PRN (20:43)
[2018-12-11] MEDS: INSULIN GLARGINE 100 UNIT/ML SUBCUT SCH (20:49)
[2018-12-11] MEDS ORDERED: VANCOMYCIN INJ 1,250 MG in SODIUM CHLORIDE 0.9% 250 ML IV PRN (21:00)
[2018-12-11] MEDS: LATANOPROST 0.005% OPH SOLN 2.5 ML BOTTLE BOTH EYES SCH (23:24)
[2018-12-12] MEDS: PIPERACILLIN/TAZOBACTAM 3,375 MG in SODIUM CHLORIDE 0.9% 100 ML IV SCH ×2 (01:05→12:30)
[2018-12-12] MEDS: MORPHINE 4 MG/1 ML VIAL IV PRN ×4 (04:00→22:47)
[2018-12-12] MEDS: INSULIN REGULAR 100 UNIT/ML SUBCUT SCH ×4 (07:51→21:12)
[2018-12-12] MEDS: amLODIPine 5 MG TABLET PO SCH (09:22)
[2018-12-12] MEDS: PANTOPRAZOLE 40 MG TABLET PO SCH (09:23)
[2018-12-12] MEDS: SEVELAMER CARBONATE 800 MG TABLET PO SCH ×3 (09:23→16:57)
[2018-12-12] MEDS: FOLIC ACID 1 MG TABLET PO SCH ×2 (09:23→20:53)
[2018-12-12] MEDS: CYANOCOBALAMIN 500 MCG TABLET PO SCH ×2 (09:23→20:53)
[2018-12-12] MEDS: METOPROLOL SUCCINATE XL 50 MG TABLET PO SCH (09:23)
[2018-12-12 11:37] LABS: Basophils # 0.1 10*3/uL (0.0-0.2); Basophils % 0.3 % (0.0-0.8); Eosinophils % 0.1 % (0.00-10.9); Hematocrit 30.3 VOL% (35.7-47.0); Hemoglobin 9.8 GM/DL (12.0-16.0); Immature Granulocytes % 0.9 %; Immature Granulocytes Absolute 0.24 #; Lymphocytes % 11.7 % (21.3-54.2); Mean Corpuscular HGB Conc 32.3 GM/DL (32-36); Mean Corpuscular Volume 104.8 FL (87-102); Monocytes % 4.4 % (1.7-12.7); Neutrophils % 82.6 % (38.7-73.9); Platelet Count 427 T/CUMM (130-400); Red Blood Count 2.89 MC/CUMM (3.8-5.5); Red Cell Distribution Width 15.6 % (9.3-17.3); White Blood Count 25.5 T/CUMM (4-12)
[2018-12-12 12:15] LABS: Lymphocytes 12 % (20-55); Segmented Neutrophils 86 % (50-85); Total Cells Counted 100
[2018-12-12 12:16] LABS: Macrocytosis Slight; Platelet Estimate Increased; Polychromasia Slight
[2018-12-12] MEDS: LATANOPROST 0.005% OPH SOLN 2.5 ML BOTTLE BOTH EYES SCH (20:55)
[2018-12-12] MEDS: INSULIN GLARGINE 100 UNIT/ML SUBCUT SCH (21:12)
[2018-12-13] MEDS: PIPERACILLIN/TAZOBACTAM 3,375 MG in SODIUM CHLORIDE 0.9% 100 ML IV SCH (02:16)
[2018-12-13] MEDS: MORPHINE 4 MG/1 ML VIAL IV PRN ×3 (04:03→21:44)
[2018-12-13 04:44] LABS: Basophils # 0.1 10*3/uL (0.0-0.2); Basophils % 0.2 % (0.0-0.8); Eosinophils # 0.1 10*3/uL (0.0-0.87); Eosinophils % 0.5 % (0.00-10.9); Hematocrit 28.3 VOL% (35.7-47.0); Hemoglobin 9.1 GM/DL (12.0-16.0); Immature Granulocytes % 0.6 %; Immature Granulocytes Absolute 0.13 #; Lymphocytes % 17.3 % (21.3-54.2); Mean Corpuscular HGB Conc 32.2 GM/DL (32-36); Mean Corpuscular Volume 104.8 FL (87-102); Mean Platelet Volume 9.3 FL (9.6-12.0); Monocytes % 3.6 % (1.7-12.7); Neutrophils % 77.8 % (38.7-73.9); Platelet Count 441 T/CUMM (130-400); Red Cell Distribution Width 15.7 % (9.3-17.3); White Blood Count 22.8 T/CUMM (4-12)
[2018-12-13 04:49] LABS: Calcium 8.1 MG/DL (8.5-10.1); Osmolality,Calculated 289.8 MOS/KG (273-304)
[2018-12-13 06:06] LABS: Lymphocytes 20 % (20-55); Myelocytes 1 %; Segmented Neutrophils 74 % (50-85); Total Cells Counted 100
[2018-12-13 06:07] LABS: Anisocytosis 1+; Platelet Estimate Adequate
[2018-12-13] MEDS: INSULIN REGULAR 100 UNIT/ML SUBCUT SCH ×4 (07:51→20:26)
[2018-12-13] MEDS: SEVELAMER CARBONATE 800 MG TABLET PO SCH ×3 (09:33→17:22)
[2018-12-13] MEDS: CYANOCOBALAMIN 500 MCG TABLET PO SCH ×2 (09:33→20:26)
[2018-12-13] MEDS: FOLIC ACID 1 MG TABLET PO SCH ×2 (09:33→20:26)
[2018-12-13] MEDS: amLODIPine 5 MG TABLET PO SCH (09:34)
[2018-12-13] MEDS: METOPROLOL SUCCINATE XL 50 MG TABLET PO SCH (09:34)
[2018-12-13] MEDS: PANTOPRAZOLE 40 MG TABLET PO SCH (09:34)
[2018-12-13] MEDS: cefTRIAXone 1,000 MG in SYRINGE 1 EACH IV SCH (13:49)
[2018-12-13] MEDS: INSULIN GLARGINE 100 UNIT/ML SUBCUT SCH (20:26)
[2018-12-13] MEDS: LATANOPROST 0.005% OPH SOLN 2.5 ML BOTTLE BOTH EYES SCH (20:26)
[2018-12-13] MEDS: ONDANSETRON 4 MG/2 ML VIAL IV PRN (21:36)
[2018-12-14 07:32] LABS: Basophils % 0.2 % (0.0-0.8); Eosinophils # 0.1 10*3/uL (0.0-0.87); Eosinophils % 0.8 % (0.00-10.9); Hematocrit 30.3 VOL% (35.7-47.0); Hemoglobin 9.8 GM/DL (12.0-16.0); Immature Granulocytes % 0.7 %; Immature Granulocytes Absolute 0.12 #; Lymphocytes # 3.5 10*3/uL (1.4-4.0); Lymphocytes % 21.9 % (21.3-54.2); Mean Corpuscular HGB Conc 32.3 GM/DL (32-36); Mean Corpuscular Volume 104.5 FL (87-102); Mean Platelet Volume 8.6 FL (9.6-12.0); Neutrophils % 69.4 % (38.7-73.9); Platelet Count 412 T/CUMM (130-400); Red Cell Distribution Width 15.6 % (9.3-17.3); White Blood Count 16.1 T/CUMM (4-12)
[2018-12-14] MEDS: METOPROLOL SUCCINATE XL 50 MG TABLET PO SCH (08:38)
[2018-12-14] MEDS: SEVELAMER CARBONATE 800 MG TABLET PO SCH ×3 (08:38→17:08)
[2018-12-14] MEDS: FOLIC ACID 1 MG TABLET PO SCH ×2 (08:38→20:37)
[2018-12-14] MEDS: ONDANSETRON 4 MG/2 ML VIAL IV PRN ×2 (08:39→23:21)
[2018-12-14] MEDS: PANTOPRAZOLE 40 MG TABLET PO SCH (08:39)
[2018-12-14] MEDS: amLODIPine 5 MG TABLET PO SCH (08:39)
[2018-12-14] MEDS: INSULIN REGULAR 100 UNIT/ML SUBCUT SCH ×4 (10:24→20:38)
[2018-12-14] MEDS: CYANOCOBALAMIN 500 MCG TABLET PO SCH ×2 (11:24→20:37)
[2018-12-14] MEDS: cefTRIAXone 1,000 MG in SYRINGE 1 EACH IV SCH (11:25)
[2018-12-14] MEDS: MORPHINE 4 MG/1 ML VIAL IV PRN ×2 (17:11→23:21)
[2018-12-14] MEDS: INSULIN GLARGINE 100 UNIT/ML SUBCUT SCH (20:37)
[2018-12-14] MEDS: LATANOPROST 0.005% OPH SOLN 2.5 ML BOTTLE BOTH EYES SCH (20:37)
[2018-12-15 05:17] LABS: Calcium 8.6 MG/DL (8.5-10.1); Osmolality,Calculated 279.4 MOS/KG (273-304)
[2018-12-15 05:27] LABS: Basophils # 0.1 10*3/uL (0.0-0.2); Basophils % 0.3 % (0.0-0.8); Eosinophils # 0.2 10*3/uL (0.0-0.87); Eosinophils % 1.3 % (0.00-10.9); Hematocrit 33.1 VOL% (35.7-47.0); Hemoglobin 10.7 GM/DL (12.0-16.0); Immature Granulocytes % 1.4 %; Immature Granulocytes Absolute 0.21 #; Lymphocytes # 3.3 10*3/uL (1.4-4.0); Lymphocytes % 21.5 % (21.3-54.2); Mean Corpuscular HGB Conc 32.3 GM/DL (32-36); Mean Corpuscular Volume 103.1 FL (87-102); Mean Platelet Volume 9.6 FL (9.6-12.0); Monocytes % 6.8 % (1.7-12.7); Neutrophils % 68.7 % (38.7-73.9); Platelet Count 376 T/CUMM (130-400); Red Blood Count 3.21 MC/CUMM (3.8-5.5); Red Cell Distribution Width 15.1 % (9.3-17.3); White Blood Count 15.1 T/CUMM (4-12)
[2018-12-15] MEDS: ONDANSETRON 4 MG/2 ML VIAL IV PRN ×2 (05:35→16:58)
[2018-12-15] MEDS ORDERED: BUPIVACAINE 0.5% 50 ML VIAL ONE (06:51)
[2018-12-15] MEDS ORDERED: LIDOCAINE 1% 20 ML VIAL ONE (06:51)
[2018-12-15] MEDS: INSULIN REGULAR 100 UNIT/ML SUBCUT SCH ×4 (08:14→20:31)
[2018-12-15] MEDS: SEVELAMER CARBONATE 800 MG TABLET PO SCH ×3 (08:15→16:44)
[2018-12-15] MEDS ORDERED: PHENYLEPHRINE 1 MG/10 ML SYRINGE IV ONE (08:27)
[2018-12-15] MEDS ORDERED: fentaNYL 100 MCG/2 ML VIAL ONE (08:27)
[2018-12-15] MEDS ORDERED: ONDANSETRON 4 MG/2 ML VIAL ONE (08:27)
[2018-12-15] MEDS ORDERED: PROPOFOL 200 MG/20 ML VIAL IV ONE (08:27)
[2018-12-15] MEDS ORDERED: SEVOFLURANE 1 UNIT/15 MINUTE INH ONE (08:27)
[2018-12-15] MEDS: AMOXICILLIN/CLAV 500 MG TABLET PO SCH (12:16)
[2018-12-15] MEDS: CYANOCOBALAMIN 500 MCG TABLET PO SCH ×2 (14:24→20:31)
[2018-12-15] MEDS: FOLIC ACID 1 MG TABLET PO SCH ×2 (14:24→20:31)
[2018-12-15] MEDS: PANTOPRAZOLE 40 MG TABLET PO SCH (14:25)
[2018-12-15] MEDS: METOPROLOL SUCCINATE XL 50 MG TABLET PO SCH (14:25)
[2018-12-15] MEDS: amLODIPine 5 MG TABLET PO SCH (14:25)
[2018-12-15] MEDS: HEPARIN 5,000 UNIT/1 ML VIAL SUBCUT SCH ×2 (16:45→23:44)
[2018-12-15] MEDS: AMOXICILLIN/CLAV 875 MG TABLET PO SCH ×2 (16:49→20:31)
[2018-12-15] MEDS: cefTRIAXone 1,000 MG in SYRINGE 1 EACH IV SCH (18:11)
[2018-12-15] MEDS: INSULIN GLARGINE 100 UNIT/ML SUBCUT SCH (20:31)
[2018-12-15] MEDS: LATANOPROST 0.005% OPH SOLN 2.5 ML BOTTLE BOTH EYES SCH (20:32)
[2018-12-16] MEDS: HEPARIN 5,000 UNIT/1 ML VIAL SUBCUT SCH (06:17)
[2018-12-16] MEDS: INSULIN REGULAR 100 UNIT/ML SUBCUT SCH ×2 (07:32→13:49)
[2018-12-16] MEDS: PANTOPRAZOLE 40 MG TABLET PO SCH (09:40)
[2018-12-16] MEDS: METOPROLOL SUCCINATE XL 50 MG TABLET PO SCH (09:40)
[2018-12-16] MEDS: FOLIC ACID 1 MG TABLET PO SCH (09:40)
[2018-12-16] MEDS: SEVELAMER CARBONATE 800 MG TABLET PO SCH ×2 (09:40→13:49)
[2018-12-16] MEDS: CYANOCOBALAMIN 500 MCG TABLET PO SCH (09:40)
[2018-12-16] MEDS: AMOXICILLIN/CLAV 875 MG TABLET PO SCH (09:40)
[2018-12-16] MEDS: amLODIPine 5 MG TABLET PO SCH (09:56)
[2018-12-16 11:06] VITALS: BP 147/87
[2018-12-16] MEDS: AMOXICILLIN/CLAV 500 MG TABLET PO SCH (13:45)
== END 2018-12-16 12:25 | disposition left against medical advice (07) | DRG 617 ==
LOC: EDBD → EDUNIT# → N.EDINP 22:26 → N.ED 22:26 → N.2E 12-11 03:01 → SUATTDRO 12-11 11:11
PROVIDERS: ATTEND Internal Medicine

== ENCOUNTER 2019-08-26 16:54 | Observation (INO) ==
[2019-08-26] MEDS ORDERED: ACETAMINOPHEN 325 MG TABLET PO PRN (19:27)
[2019-08-26] MEDS ORDERED: METHOCARBAMOL 750 MG TABLET PO PRN (19:29)
[2019-08-26] MEDS ORDERED: GLUCAGON 1 MG VIAL IM PRN (19:30)
[2019-08-26] MEDS ORDERED: ALBUTEROL/IPRATROPIUM 3 ML NEB RESP TX PRN (19:32)
[2019-08-26] MEDS ORDERED: ALUM/MAG/SIMETH/LIDO VISC 1:1 30 ML BOTTLE PO ONE (19:36)
[2019-08-26] MEDS ORDERED: DEXTROSE 10% 250 ML BAG IV PRN (19:39)
[2019-08-26 20:07] LABS: Basophils # 0.1 10*3/uL (0.0-0.2); Basophils % 0.6 % (0.0-0.8); Eosinophils % 0.2 % (0.00-10.9); Hematocrit 27.2 VOL% (35.7-47.0); Hemoglobin 8.8 GM/DL (12.0-16.0); Immature Granulocytes % 0.8 %; Immature Granulocytes Absolute 0.07 #; Lymphocytes # 1.8 10*3/uL (1.4-4.0); Lymphocytes % 20.5 % (21.3-54.2); Mean Corpuscular HGB Conc 32.4 GM/DL (32-36); Mean Corpuscular Volume 99.3 FL (87-102); Mean Platelet Volume 8.8 FL (9.6-12.0); Neutrophils % 70.9 % (38.7-73.9); Platelet Count 374 T/CUMM (130-400); Red Blood Count 2.74 MC/CUMM (3.8-5.5); Red Cell Distribution Width 14.2 % (9.3-17.3); White Blood Count 8.5 T/CUMM (4-12)
[2019-08-26] MEDS: DICYCLOMINE 10 MG CAPSULE PO SCH (20:25)
[2019-08-26] MEDS: FUROSEMIDE 20 MG/2 ML VIAL IV SCH (20:25)
[2019-08-26] MEDS: FOLIC ACID 1 MG TABLET PO SCH (20:26)
[2019-08-26 20:34] LABS: Albumin 2.9 G/DL (3.4-5.0); Bilirubin,Total 0.8 MG/DL (0.2-1.0); Calcium 8.6 MG/DL (8.5-10.1); Osmolality,Calculated 281.1 MOS/KG (273-304); Thyroid Stimulating Hormone 1.89 uIU/ml (0.358-3.74); Total Protein 7.5 G/DL (6.4-8.3)
[2019-08-26] MEDS: MORPHINE 4 MG/1 ML VIAL IV PRN (22:01)
[2019-08-26] MEDS: HEPARIN 5,000 UNIT/1 ML VIAL SUBCUT SCH (22:01)
[2019-08-26] MEDS: INSULIN REGULAR 100 UNIT/ML SUBCUT SCH (22:02)
[2019-08-26] MEDS: LATANOPROST 0.005% OPH SOLN 2.5 ML BOTTLE BOTH EYES SCH (22:02)
[2019-08-27] MEDS: MORPHINE 4 MG/1 ML VIAL IV PRN ×3 (02:52→15:19)
[2019-08-27 05:46] LABS: Basophils % 0.5 % (0.0-0.8); Eosinophils % 0.4 % (0.00-10.9); Hematocrit 26.3 VOL% (35.7-47.0); Hemoglobin 8.5 GM/DL (12.0-16.0); Immature Granulocytes % 0.5 %; Immature Granulocytes Absolute 0.04 #; Lymphocytes # 1.6 10*3/uL (1.4-4.0); Lymphocytes % 21.8 % (21.3-54.2); Mean Corpuscular HGB Conc 32.3 GM/DL (32-36); Mean Corpuscular Volume 99.6 FL (87-102); Mean Platelet Volume 9.4 FL (9.6-12.0); Monocytes % 8.7 % (1.7-12.7); Neutrophils % 68.1 % (38.7-73.9); Platelet Count 359 T/CUMM (130-400); Red Blood Count 2.64 MC/CUMM (3.8-5.5); Red Cell Distribution Width 14.3 % (9.3-17.3); White Blood Count 7.5 T/CUMM (4-12)
[2019-08-27] MEDS: ONDANSETRON 4 MG/2 ML VIAL IV PRN ×2 (05:50→10:27)
[2019-08-27 06:13] LABS: Albumin 2.7 G/DL (3.4-5.0); Calcium 8.5 MG/DL (8.5-10.1); Osmolality,Calculated 277.4 MOS/KG (273-304); Risk Ratio 1.81; Total Protein 7.1 G/DL (6.4-8.3); VLDL CHOLESTEROL 15.8 MG/DL
[2019-08-27] MEDS: INSULIN REGULAR 100 UNIT/ML SUBCUT SCH ×4 (08:34→21:24)
[2019-08-27] MEDS ORDERED: PANTOPRAZOLE 40 MG TABLET PO SCH (09:00)
[2019-08-27] MEDS: CYANOCOBALAMIN 500 MCG TABLET PO SCH (09:01)
[2019-08-27] MEDS: SEVELAMER CARBONATE 800 MG TABLET PO SCH ×3 (09:01→18:04)
[2019-08-27] MEDS: HEPARIN 5,000 UNIT/1 ML VIAL SUBCUT SCH (09:01)
[2019-08-27] MEDS: FOLIC ACID 1 MG TABLET PO SCH ×2 (09:01→21:24)
[2019-08-27] MEDS: DICYCLOMINE 10 MG CAPSULE PO SCH ×4 (09:02→21:24)
[2019-08-27] MEDS: FUROSEMIDE 20 MG/2 ML VIAL IV SCH (09:02)
[2019-08-27 09:51] LABS: Troponin I 0.019 NG/ML (0.00-0.045)
[2019-08-27] MEDS ORDERED: PROMETHAZINE INJ 25 MG in SODIUM CHLORIDE 0.9% 50 ML IV PRN (11:39)
[2019-08-27] MEDS ORDERED: SODIUM CHLORIDE 0.45% 500 ML IV ONE (11:59)
[2019-08-27] MEDS: amLODIPine 5 MG TABLET PO SCH (18:04)
[2019-08-27] MEDS: METOPROLOL SUCCINATE XL 50 MG TABLET PO SCH (18:04)
[2019-08-27] MEDS: lisinopriL 5 MG TABLET PO SCH (18:04)
[2019-08-27] MEDS: POLYETHYLENE GLYCOL POWDER 17 GM PACK PO SCH (21:24)
[2019-08-27] MEDS: METOCLOPRAMIDE 5 MG TABLET PO SCH (21:24)
[2019-08-27] MEDS: PANTOPRAZOLE 40 MG TABLET PO SCH (21:24)
[2019-08-27] MEDS: LATANOPROST 0.005% OPH SOLN 2.5 ML BOTTLE BOTH EYES SCH (21:25)
[2019-08-28 06:02] LABS: Basophils % 0.4 % (0.0-0.8); Eosinophils # 0.1 10*3/uL (0.0-0.87); Eosinophils % 0.7 % (0.00-10.9); Hematocrit 26.4 VOL% (35.7-47.0); Hemoglobin 8.4 GM/DL (12.0-16.0); Immature Granulocytes % 0.5 %; Immature Granulocytes Absolute 0.04 #; Lymphocytes # 2.1 10*3/uL (1.4-4.0); Lymphocytes % 25.8 % (21.3-54.2); Mean Corpuscular HGB Conc 31.8 GM/DL (32-36); Mean Corpuscular Volume 101.5 FL (87-102); Mean Platelet Volume 9.3 FL (9.6-12.0); Monocytes % 8.5 % (1.7-12.7); Neutrophils % 64.1 % (38.7-73.9); Platelet Count 353 T/CUMM (130-400); Red Cell Distribution Width 14.4 % (9.3-17.3)
[2019-08-28 06:26] LABS: Calcium 8.3 MG/DL (8.5-10.1); Osmolality,Calculated 275.8 MOS/KG (273-304)
[2019-08-28 06:51] LABS: Troponin I 0.022 NG/ML (0.00-0.045)
[2019-08-28] MEDS: SODIUM CHLORIDE 0.9% 500 ML IV SCH (07:15)
[2019-08-28] MEDS ORDERED: ONDANSETRON 4 MG/2 ML VIAL ONE (07:26)
[2019-08-28] MEDS: ONDANSETRON 4 MG/2 ML VIAL IV PRN (07:39)
[2019-08-28] MEDS ORDERED: propofoL 200 MG/20 ML VIAL IV ONE (10:00)
[2019-08-28] MEDS ORDERED: LIDOCAINE 2% 5 ML VIAL ONE (10:00)
[2019-08-28] MEDS: INSULIN REGULAR 100 UNIT/ML SUBCUT SCH ×4 (10:37→20:12)
[2019-08-28] MEDS: METOCLOPRAMIDE 5 MG TABLET PO SCH ×4 (10:37→20:06)
[2019-08-28] MEDS: DICYCLOMINE 10 MG CAPSULE PO SCH ×4 (10:51→20:06)
[2019-08-28] MEDS: FOLIC ACID 1 MG TABLET PO SCH ×2 (10:51→20:06)
[2019-08-28] MEDS: amLODIPine 5 MG TABLET PO SCH (10:52)
[2019-08-28] MEDS: PANTOPRAZOLE 40 MG TABLET PO SCH ×2 (10:52→20:06)
[2019-08-28] MEDS: METOCLOPRAMIDE 10 MG/10 ML UDCUP PO SCH ×3 (10:52→20:06)
[2019-08-28] MEDS: lisinopriL 5 MG TABLET PO SCH (10:52)
[2019-08-28] MEDS: POLYETHYLENE GLYCOL POWDER 17 GM PACK PO SCH ×2 (10:52→20:06)
[2019-08-28] MEDS: METOPROLOL SUCCINATE XL 50 MG TABLET PO SCH (10:52)
[2019-08-28] MEDS: SEVELAMER CARBONATE 800 MG TABLET PO SCH ×3 (10:56→17:59)
[2019-08-28] MEDS: LATANOPROST 0.005% OPH SOLN 2.5 ML BOTTLE BOTH EYES SCH (20:57)
[2019-08-28] MEDS: MORPHINE 4 MG/1 ML VIAL IV PRN (21:40)
[2019-08-29 04:02] LABS: Basophils % 0.4 % (0.0-0.8); Eosinophils # 0.1 10*3/uL (0.0-0.87); Hematocrit 26.1 VOL% (35.7-47.0); Hemoglobin 8.2 GM/DL (12.0-16.0); Immature Granulocytes % 0.4 %; Immature Granulocytes Absolute 0.04 #; Lymphocytes # 2.7 10*3/uL (1.4-4.0); Lymphocytes % 30.7 % (21.3-54.2); Mean Corpuscular HGB Conc 31.4 GM/DL (32-36); Mean Corpuscular Volume 102.4 FL (87-102); Neutrophils % 58.5 % (38.7-73.9); Platelet Count 347 T/CUMM (130-400); Red Blood Count 2.55 MC/CUMM (3.8-5.5); Red Cell Distribution Width 14.4 % (9.3-17.3); White Blood Count 8.9 T/CUMM (4-12)
[2019-08-29 04:15] LABS: Calcium 8.1 MG/DL (8.5-10.1); Osmolality,Calculated 274.2 MOS/KG (273-304)
[2019-08-29] MEDS: SODIUM CHLORIDE 0.9% 500 ML IV SCH (07:11)
[2019-08-29] MEDS: INSULIN REGULAR 100 UNIT/ML SUBCUT SCH (07:51)
[2019-08-29] MEDS: METOCLOPRAMIDE 10 MG/10 ML UDCUP PO SCH (07:52)
[2019-08-29] MEDS: SEVELAMER CARBONATE 800 MG TABLET PO SCH (07:52)
[2019-08-29] MEDS: METOCLOPRAMIDE 5 MG TABLET PO SCH (07:53)
[2019-08-29] MEDS: DICYCLOMINE 10 MG CAPSULE PO SCH (08:14)
[2019-08-29] MEDS: FOLIC ACID 1 MG TABLET PO SCH (08:14)
[2019-08-29] MEDS: PANTOPRAZOLE 40 MG TABLET PO SCH (08:14)
[2019-08-29] MEDS: HEPARIN 5,000 UNIT/1 ML VIAL SUBCUT SCH (08:14)
[2019-08-29] MEDS: POLYETHYLENE GLYCOL POWDER 17 GM PACK PO SCH (08:14)
[2019-08-29] MEDS: CYANOCOBALAMIN 500 MCG TABLET PO SCH (08:15)
[2019-08-29 08:53] VITALS: BP 189/91
[2019-08-29] MEDS: amLODIPine 5 MG TABLET PO SCH (08:59)
[2019-08-29] MEDS: lisinopriL 5 MG TABLET PO SCH (09:00)
[2019-08-29] MEDS: METOPROLOL SUCCINATE XL 50 MG TABLET PO SCH (09:00)
== END 2019-08-29 09:46 | disposition home or self-care (01) ==
LOC: N.TELES → SUATTDRO 18:16
PROVIDERS: ADMIT Internal Medicine; ATTEND Internal Medicine

== ENCOUNTER 2019-08-29 15:05 | Inpatient (IN) ==
[2019-08-29] MEDS ORDERED: amLODIPine 5 MG TABLET PO STA (16:37)
[2019-08-29 16:39] LABS: Basophils # 0.1 10*3/uL (0.0-0.2); Basophils % 0.4 % (0.0-0.8); Eosinophils # 0.1 10*3/uL (0.0-0.87); Eosinophils % 0.6 % (0.00-10.9); Hematocrit 27.8 VOL% (35.7-47.0); Hemoglobin 8.9 GM/DL (12.0-16.0); Immature Granulocytes % 0.5 %; Immature Granulocytes Absolute 0.06 #; Lymphocytes # 2.1 10*3/uL (1.4-4.0); Lymphocytes % 17.9 % (21.3-54.2); Mean Corpuscular Volume 102.2 FL (87-102); Mean Platelet Volume 9.3 FL (9.6-12.0); Monocytes % 8.3 % (1.7-12.7); Neutrophils % 72.3 % (38.7-73.9); Platelet Count 369 T/CUMM (130-400); Red Blood Count 2.72 MC/CUMM (3.8-5.5); Red Cell Distribution Width 14.5 % (9.3-17.3); White Blood Count 11.9 T/CUMM (4-12)
[2019-08-29] MEDS ORDERED: amLODIPine 5 MG TABLET ONE (16:39)
[2019-08-29 17:09] LABS: Albumin 2.7 G/DL (3.4-5.0); Bilirubin,Total 0.7 MG/DL (0.2-1.0); Calcium 8.4 MG/DL (8.5-10.1); Osmolality,Calculated 270.7 MOS/KG (273-304); Total Protein 7.3 G/DL (6.4-8.3)
[2019-08-29] MEDS ORDERED: DEXTROSE 10% 250 ML BAG IV PRN (17:40)
[2019-08-29] MEDS ORDERED: GLUCAGON 1 MG VIAL IM PRN (17:40)
[2019-08-29] MEDS ORDERED: hydrALAZINE 20 MG/1 ML VIAL IV PRN (18:00)
[2019-08-29] MEDS: HEPARIN 5,000 UNIT/1 ML VIAL SUBCUT SCH (20:37)
[2019-08-29] MEDS: METOCLOPRAMIDE 10 MG/10 ML UDCUP PO SCH (20:38)
[2019-08-29] MEDS: INSULIN LISPRO 100 UNIT/ML SUBCUT SCH (20:45)
[2019-08-30] MEDS: HEPARIN 5,000 UNIT/1 ML VIAL SUBCUT SCH ×3 (04:52→20:15)
[2019-08-30 05:01] LABS: Basophils % 0.4 % (0.0-0.8); Eosinophils # 0.1 10*3/uL (0.0-0.87); Eosinophils % 0.6 % (0.00-10.9); Hematocrit 25.7 VOL% (35.7-47.0); Hemoglobin 8.2 GM/DL (12.0-16.0); Immature Granulocytes % 0.7 %; Immature Granulocytes Absolute 0.07 #; Lymphocytes # 1.7 10*3/uL (1.4-4.0); Lymphocytes % 17.7 % (21.3-54.2); Mean Corpuscular HGB Conc 31.9 GM/DL (32-36); Mean Corpuscular Volume 101.2 FL (87-102); Monocytes % 7.7 % (1.7-12.7); Neutrophils % 72.9 % (38.7-73.9); Platelet Count 350 T/CUMM (130-400); Red Blood Count 2.54 MC/CUMM (3.8-5.5); Red Cell Distribution Width 14.4 % (9.3-17.3); White Blood Count 9.6 T/CUMM (4-12)
[2019-08-30 06:06] LABS: Albumin 2.6 G/DL (3.4-5.0); Bilirubin,Total 1.1 MG/DL (0.2-1.0); Calcium 8.4 MG/DL (8.5-10.1); Osmolality,Calculated 275.4 MOS/KG (273-304); Thyroid Stimulating Hormone 3.88 uIU/ml (0.358-3.74); Total Protein 6.9 G/DL (6.4-8.3)
[2019-08-30] MEDS: INSULIN LISPRO 100 UNIT/ML SUBCUT SCH ×4 (08:54→20:15)
[2019-08-30] MEDS: SEVELAMER CARBONATE 800 MG TABLET PO SCH ×3 (09:14→17:35)
[2019-08-30] MEDS: lisinopriL 5 MG TABLET PO SCH (09:14)
[2019-08-30] MEDS: amLODIPine 5 MG TABLET PO SCH (09:15)
[2019-08-30] MEDS: PANTOPRAZOLE 40 MG TABLET PO SCH (09:15)
[2019-08-30] MEDS: METOPROLOL SUCCINATE XL 50 MG TABLET PO SCH (09:18)
[2019-08-30] MEDS: METOCLOPRAMIDE 10 MG/10 ML UDCUP PO SCH ×4 (09:18→20:19)
[2019-08-30] MEDS ORDERED: ALBUTEROL/IPRATROPIUM 3 ML NEB RESP TX PRN (11:20)
[2019-08-30] MEDS: cefTRIAXone 1,000 MG in SYRINGE 1 EACH IV SCH (12:02)
[2019-08-30] MEDS ORDERED: FUROSEMIDE 40 MG/4 ML VIAL IV ONE (15:54)
[2019-08-30] MEDS ORDERED: IBUPROFEN 600 MG TABLET PO ONE (15:57)
[2019-08-31 03:56] LABS: Basophils % 0.4 % (0.0-0.8); Eosinophils # 0.1 10*3/uL (0.0-0.87); Hemoglobin 9.2 GM/DL (12.0-16.0); Immature Granulocytes % 0.7 %; Immature Granulocytes Absolute 0.06 #; Lymphocytes % 21.8 % (21.3-54.2); Mean Corpuscular HGB Conc 31.7 GM/DL (32-36); Mean Platelet Volume 9.3 FL (9.6-12.0); Neutrophils % 68.1 % (38.7-73.9); Platelet Count 399 T/CUMM (130-400); Red Blood Count 2.87 MC/CUMM (3.8-5.5); White Blood Count 9.1 T/CUMM (4-12)
[2019-08-31] MEDS: HEPARIN 5,000 UNIT/1 ML VIAL SUBCUT SCH ×3 (04:09→21:20)
[2019-08-31] MEDS: ONDANSETRON 4 MG/2 ML VIAL IV PRN ×2 (04:21→11:07)
[2019-08-31 04:26] LABS: Calcium 8.6 MG/DL (8.5-10.1); Osmolality,Calculated 273.1 MOS/KG (273-304)
[2019-08-31 04:38] LABS: Folate 19.1 NG/ML (5.4-24.0)
[2019-08-31 04:47] LABS: Albumin 2.8 G/DL (3.4-5.0); Bilirubin,Total 0.9 MG/DL (0.2-1.0); Calcium 8.6 MG/DL (8.5-10.1); Osmolality,Calculated 271.2 MOS/KG (273-304); Total Protein 7.6 G/DL (6.4-8.3)
[2019-08-31] MEDS ORDERED: MORPHINE 4 MG/1 ML VIAL IV ONE (07:55)
[2019-08-31] MEDS: METOCLOPRAMIDE 10 MG/10 ML UDCUP PO SCH (08:06)
[2019-08-31] MEDS: lisinopriL 5 MG TABLET PO SCH (08:08)
[2019-08-31] MEDS: PANTOPRAZOLE 40 MG TABLET PO SCH (08:09)
[2019-08-31] MEDS: amLODIPine 5 MG TABLET PO SCH (08:09)
[2019-08-31] MEDS: METOPROLOL SUCCINATE XL 50 MG TABLET PO SCH (08:09)
[2019-08-31] MEDS: SEVELAMER CARBONATE 800 MG TABLET PO SCH (08:09)
[2019-08-31] MEDS: INSULIN LISPRO 100 UNIT/ML SUBCUT SCH ×4 (08:14→21:24)
[2019-08-31] MEDS ORDERED: EPOETIN ALFA 2,000 UNIT/1 ML VIAL IV PRN (10:29)
[2019-08-31] MEDS: PANTOPRAZOLE 40 MG VIAL IV SCH ×2 (10:57→21:27)
[2019-08-31] MEDS: cefTRIAXone 1,000 MG in SYRINGE 1 EACH IV SCH (11:00)
[2019-08-31] MEDS: METOCLOPRAMIDE 10 MG/2 ML VIAL IV SCH ×2 (11:28→17:54)
[2019-08-31] MEDS: MORPHINE 4 MG/1 ML VIAL IV PRN (11:31)
[2019-08-31] MEDS ORDERED: METHOCARBAMOL 750 MG TABLET PO PRN (15:53)
[2019-08-31] MEDS ORDERED: ACETAMINOPHEN 325 MG TABLET PO PRN (15:53)
[2019-08-31] MEDS ORDERED: CYANOCOBALAMIN 500 MCG TABLET PO SCH (16:00)
[2019-08-31 16:24] LABS: Apearance,Urine CLEAR (Clear); Bacteria,Urine Occasional /HPF (Few); Bilirubin,Urine Negative (Negative); Blood, Urine Negative (Negative); Glucose,Urine (UA) >=500 mg/dL (Negative); Ketones,Urine 5 mg/dL (Negative); Mucus,Urine Occasional /LPF (Occasional); Nitrite,Urine Negative (Negative); Protein,Urine >=500 MG/DL; RBC,Urine 2 /HPF (0-4); Squamous Epithelial Cell,Urine Occasional /HPF (0-10); Urine Color Yellow (Yellow); Urine Specific Gravity 1.033 (1.001-1.035); Urine Urobilinogen < 2.0 EU/DL (0.2-1.0); WBC,Urine 5 /HPF (0-6)
[2019-08-31] MEDS: DICYCLOMINE 10 MG CAPSULE PO SCH ×2 (16:50→21:19)
[2019-08-31] MEDS ORDERED: LATANOPROST 0.005% OPH SOLN 2.5 ML BOTTLE BOTH EYES SCH (21:00)
[2019-08-31] MEDS ORDERED: INSULIN GLARGINE 100 UNIT/ML SUBCUT SCH (21:00)
[2019-08-31] MEDS: DOCUSATE/SENNA 50-8.6 MG TABLET PO SCH (21:22)
[2019-08-31] MEDS: FOLIC ACID 1 MG TABLET PO SCH (21:22)
[2019-09-01] MEDS: MORPHINE 4 MG/1 ML VIAL IV PRN ×3 (00:02→10:22)
[2019-09-01 05:51] LABS: Albumin 2.6 G/DL (3.4-5.0); Bilirubin,Total 0.5 MG/DL (0.2-1.0); Calcium 8.6 MG/DL (8.5-10.1); Osmolality,Calculated 263.7 MOS/KG (273-304); Total Protein 7.5 G/DL (6.4-8.3)
[2019-09-01] MEDS: HEPARIN 5,000 UNIT/1 ML VIAL SUBCUT SCH (05:58)
[2019-09-01] MEDS: METOCLOPRAMIDE 10 MG/2 ML VIAL IV SCH ×2 (05:59)
[2019-09-01 06:17] LABS: Basophils % 0.5 % (0.0-0.8); Eosinophils # 0.1 10*3/uL (0.0-0.87); Eosinophils % 0.8 % (0.00-10.9); Hematocrit 28.8 VOL% (35.7-47.0); Hemoglobin 9.1 GM/DL (12.0-16.0); Immature Granulocytes % 0.9 %; Immature Granulocytes Absolute 0.08 #; Lymphocytes # 1.7 10*3/uL (1.4-4.0); Lymphocytes % 19.7 % (21.3-54.2); Mean Corpuscular HGB Conc 31.6 GM/DL (32-36); Mean Corpuscular Volume 103.2 FL (87-102); Monocytes % 9.2 % (1.7-12.7); Neutrophils % 68.9 % (38.7-73.9); Platelet Count 383 T/CUMM (130-400); Red Blood Count 2.79 MC/CUMM (3.8-5.5); Red Cell Distribution Width 15.1 % (9.3-17.3); White Blood Count 8.5 T/CUMM (4-12)
[2019-09-01 07:55] VITALS: BP 164/79
[2019-09-01] MEDS: INSULIN LISPRO 100 UNIT/ML SUBCUT SCH (09:13)
[2019-09-01] MEDS: PANTOPRAZOLE 40 MG VIAL IV SCH (10:19)
[2019-09-01] MEDS: FOLIC ACID 1 MG TABLET PO SCH (10:25)
[2019-09-01] MEDS: lisinopriL 5 MG TABLET PO SCH (10:25)
[2019-09-01] MEDS: DOCUSATE/SENNA 50-8.6 MG TABLET PO SCH (10:25)
[2019-09-01] MEDS: amLODIPine 5 MG TABLET PO SCH (10:25)
[2019-09-01] MEDS: DICYCLOMINE 10 MG CAPSULE PO SCH (10:26)
[2019-09-01] MEDS: METOPROLOL SUCCINATE XL 50 MG TABLET PO SCH (10:26)
[2019-09-01] MEDS: ONDANSETRON 4 MG/2 ML VIAL IV PRN (12:06)
== END 2019-09-01 16:03 | disposition home or self-care (01) | DRG 640 ==
LOC: N.EDINP 15:05 → N.ED 15:05 → SUATTDRO 17:16 → N.2W 17:59
PROVIDERS: ADMIT Internal Medicine; ATTEND Family Medicine

== ENCOUNTER 2019-10-15 05:17 | Inpatient (IN) ==
[2019-10-15] MEDS ORDERED: ONDANSETRON 4 MG/2 ML VIAL IV PRN (07:55)
[2019-10-15] MEDS ORDERED: PANTOPRAZOLE 40 MG TABLET PO SCH (09:00)
[2019-10-15 09:28] LABS: Albumin 2.9 G/DL (3.4-5.0); Bilirubin,Total 1.2 MG/DL (0.2-1.0); Calcium 8.6 MG/DL (8.5-10.1); Osmolality,Calculated 302.1 MOS/KG (273-304); Total Protein 8.3 G/DL (6.4-8.3); Troponin I 0.037 NG/ML (0.00-0.045)
[2019-10-15] MEDS: POTASSIUM CHLORIDE RIDER 10 MEQ in PREMIX 1 EACH IV SCH ×2 (10:15→11:16)
[2019-10-15 10:17] LABS: ABG HCO3 8.9 MMOL/L (20-26); ABG Oxygen Saturation 98.4 % (95-100); ABG PCO2 22.3 MM HG (35-48); ABG TCO2 6.5 MMOL/L (23-27)
[2019-10-15 10:48] LABS: ABG PH 7.097 (7.35-7.45)
[2019-10-15] MEDS ORDERED: ACETAMINOPHEN 325 MG TABLET PO PRN (18:33)
[2019-10-15] MEDS ORDERED: METHOCARBAMOL 750 MG TABLET PO PRN (18:33)
[2019-10-15] MEDS ORDERED: POTASSIUM CHLORIDE RIDER 10 MEQ in PREMIX 1 EACH IV PRN (18:39)
[2019-10-15] MEDS: SEVELAMER CARBONATE 800 MG TABLET PO SCH (18:58)
[2019-10-15] MEDS: DICYCLOMINE 10 MG CAPSULE PO SCH ×2 (18:58→21:50)
[2019-10-15] MEDS: METOCLOPRAMIDE 5 MG TABLET PO SCH ×2 (18:58→21:53)
[2019-10-15] MEDS: POTASSIUM CHLORIDE 20 MEQ TABLET PO SCH (21:50)
[2019-10-15] MEDS: FOLIC ACID 1 MG TABLET PO SCH (21:50)
[2019-10-15] MEDS: PANTOPRAZOLE 40 MG TABLET PO SCH (21:50)
[2019-10-15] MEDS: INSULIN GLARGINE 100 UNIT/ML SUBCUT SCH (22:02)
[2019-10-15] MEDS: LATANOPROST 0.005% OPH SOLN 2.5 ML BOTTLE BOTH EYES SCH (23:22)
[2019-10-16] MEDS: POTASSIUM CHLORIDE 20 MEQ TABLET PO SCH ×6 (00:06→18:34)
[2019-10-16 04:38] LABS: ABG Base Excess -6.4 MMOL/L (-2.5-2.5); ABG HCO3 18.2 MMOL/L (20-26); ABG Oxygen Saturation 96.5 % (95-100); ABG PCO2 33.1 MM HG (35-48); ABG PH 7.359 (7.35-7.45); ABG PO2 95.2 MM HG (80-95); ABG TCO2 19.3 MMOL/L (23-27); Allen Test Positive; Pt O2 Delivery Device Room Air
[2019-10-16 05:49] LABS: Albumin 2.5 G/DL (3.4-5.0); Bilirubin,Total 0.9 MG/DL (0.2-1.0); Calcium 7.7 MG/DL (8.5-10.1); Osmolality,Calculated 289.8 MOS/KG (273-304); Total Protein 7.2 G/DL (6.4-8.3)
[2019-10-16] MEDS: FOLIC ACID 1 MG TABLET PO SCH ×2 (08:33→21:48)
[2019-10-16] MEDS: DICYCLOMINE 10 MG CAPSULE PO SCH ×4 (08:33→21:48)
[2019-10-16] MEDS: SEVELAMER CARBONATE 800 MG TABLET PO SCH ×3 (08:33→16:38)
[2019-10-16] MEDS: PANTOPRAZOLE 40 MG TABLET PO SCH ×2 (08:34→21:48)
[2019-10-16] MEDS: METOCLOPRAMIDE 5 MG TABLET PO SCH ×3 (08:34→16:37)
[2019-10-16] MEDS: LATANOPROST 0.005% OPH SOLN 2.5 ML BOTTLE BOTH EYES SCH (21:48)
[2019-10-16] MEDS: INSULIN GLARGINE 100 UNIT/ML SUBCUT SCH (21:53)
[2019-10-17] MEDS: POTASSIUM CHLORIDE 20 MEQ TABLET PO SCH ×3 (00:53→13:13)
[2019-10-17 06:30] LABS: Albumin 2.7 G/DL (3.4-5.0); Bilirubin,Total 0.8 MG/DL (0.2-1.0); Calcium 8.5 MG/DL (8.5-10.1); Osmolality,Calculated 298.5 MOS/KG (273-304); Total Protein 7.7 G/DL (6.4-8.3)
[2019-10-17] MEDS: METOCLOPRAMIDE 5 MG TABLET PO SCH (08:29)
[2019-10-17] MEDS: DICYCLOMINE 10 MG CAPSULE PO SCH ×2 (08:30→13:14)
[2019-10-17] MEDS: PANTOPRAZOLE 40 MG TABLET PO SCH (08:30)
[2019-10-17] MEDS: FOLIC ACID 1 MG TABLET PO SCH (08:30)
[2019-10-17] MEDS: SEVELAMER CARBONATE 800 MG TABLET PO SCH ×2 (08:30→13:13)
[2019-10-17] MEDS ORDERED: CYANOCOBALAMIN 500 MCG TABLET PO SCH (09:00)
[2019-10-17 16:19] VITALS: BP 180/104
== END 2019-10-17 16:48 | disposition home or self-care (01) | DRG 640 ==
LOC: SUATTDRO 07:29 → N.CC 07:29 → N.5E 17:50
PROVIDERS: ADMIT Internal Medicine; ATTEND Internal Medicine

== ENCOUNTER 2019-12-22 10:03 | Inpatient (IN) ==
[2019-12-22] MEDS ORDERED: AZITHROMYCIN INJ 500 MG in SODIUM CHLORIDE 0.9% 250 ML IV STA (10:43)
[2019-12-22] MEDS ORDERED: methylPREDNISolone SOD SUC 125 MG/2 ML VIAL IV STA (10:43)
[2019-12-22 11:57] LABS: Basophils % 0.3 % (0.0-0.8); Eosinophils % 0.1 % (0.00-10.9); Hematocrit 32.3 VOL% (35.7-47.0); Hemoglobin 10.5 GM/DL (12.0-16.0); Immature Granulocytes % 0.9 %; Immature Granulocytes Absolute 0.06 #; Lymphocytes % 28.1 % (21.3-54.2); Mean Corpuscular HGB Conc 32.5 GM/DL (32-36); Mean Platelet Volume 9.6 FL (9.6-12.0); Monocytes % 8.1 % (1.7-12.7); Neutrophils % 62.5 % (38.7-73.9); Platelet Count 201 T/CUMM (130-400); Red Cell Distribution Width 14.8 % (9.3-17.3)
[2019-12-22 12:12] LABS: PT Patient Result 10.7 SECS (9.8-11.9); Partial Thromboplastin Time 34.3 SECS (23.9-33.8)
[2019-12-22 12:20] LABS: Anisocytosis 1+; Band Neutrophils 10 % (0-10); Eosinophils 1 % (0-10); Lymphocytes 24 % (20-55); Nucleated Red Blood Cells 1 (0-5); Platelet Estimate Normal; Segmented Neutrophils 61 % (50-85); Total Cells Counted 100
[2019-12-22 12:21] LABS: Macrocytosis Slight; Smudge Cells Few
[2019-12-22 12:45] LABS: Albumin 2.7 G/DL (3.4-5.0); Bilirubin,Total 0.5 MG/DL (0.2-1.0); CKMB % 1.4 %; Calcium 7.4 MG/DL (8.5-10.1); Ferritin 3667.1 ng/ml (8-252); Osmolality,Calculated 262.9 MOS/KG (273-304); Total Protein 7.8 G/DL (6.4-8.3)
[2019-12-22 12:46] LABS: Troponin I 0.058 NG/ML (0.00-0.045)
[2019-12-22] MEDS ORDERED: GLUCAGON 1 MG VIAL IM PRN (14:09)
[2019-12-22] MEDS ORDERED: DEXTROSE 10% 250 ML BAG IV PRN (14:09)
[2019-12-22] MEDS ORDERED: PNEUMOCOCCAL VACCINE (23 VALENT) 0.5 ML VIAL IM ONE (14:45)
[2019-12-22] MEDS ORDERED: POTASSIUM CHLORIDE 20 MEQ TABLET PO SCH (16:00)
[2019-12-22] MEDS: POTASSIUM CHLORIDE 20 MEQ TABLET PO SCH ×2 (16:48→21:03)
[2019-12-22] MEDS: cefTRIAXone 1,000 MG in SYRINGE 1 EACH IV SCH (16:49)
[2019-12-22] MEDS: HEPARIN 5,000 UNIT/1 ML VIAL SUBCUT SCH (16:49)
[2019-12-22] MEDS: ACETAMINOPHEN 325 MG TABLET PO PRN (17:04)
[2019-12-22] MEDS: INSULIN LISPRO 100 UNIT/ML SUBCUT SCH ×2 (17:52→21:02)
[2019-12-22] MEDS ORDERED: LOPERAMIDE 2 MG CAPSULE PO PRN (18:37)
[2019-12-23] MEDS: HEPARIN 5,000 UNIT/1 ML VIAL SUBCUT SCH ×3 (00:20→17:00)
[2019-12-23 05:49] LABS: Basophils % 0.3 % (0.0-0.8); Hematocrit 36.4 VOL% (35.7-47.0); Hemoglobin 11.5 GM/DL (12.0-16.0); Immature Granulocytes % 1.5 %; Immature Granulocytes Absolute 0.06 #; Lymphocytes # 1.3 10*3/uL (1.4-4.0); Lymphocytes % 34.5 % (21.3-54.2); Mean Corpuscular HGB Conc 31.6 GM/DL (32-36); Mean Corpuscular Volume 95.8 FL (87-102); Mean Platelet Volume 10.1 FL (9.6-12.0); Neutrophils % 56.7 % (38.7-73.9); Platelet Count 237 T/CUMM (130-400); Red Cell Distribution Width 14.5 % (9.3-17.3); White Blood Count 3.9 T/CUMM (4-12)
[2019-12-23 06:14] LABS: Calcium 7.9 MG/DL (8.5-10.1); Osmolality,Calculated 267.4 MOS/KG (273-304)
[2019-12-23 06:24] LABS: Calcium 7.9 MG/DL (8.5-10.1); Osmolality,Calculated 268.4 MOS/KG (273-304); Risk Ratio 1.9; Thyroid Stimulating Hormone 0.983 uIU/ml (0.358-3.74); VLDL CHOLESTEROL 14.8 MG/DL
[2019-12-23 06:30] LABS: Ferritin 3832.6 ng/ml (8-252)
[2019-12-23 07:33] LABS: Anisocytosis 1+; Band Neutrophils 6 % (0-10); Lymphocytes 33 % (20-55); Platelet Estimate Normal; Segmented Neutrophils 55 % (50-85); Total Cells Counted 100
[2019-12-23 07:34] LABS: Macrocytosis Slight; Smudge Cells Few
[2019-12-23] MEDS: INSULIN LISPRO 100 UNIT/ML SUBCUT SCH ×4 (08:46→21:53)
[2019-12-23] MEDS: POTASSIUM CHLORIDE 20 MEQ TABLET PO SCH ×3 (08:46→21:54)
[2019-12-23] MEDS ORDERED: PANTOPRAZOLE 40 MG TABLET PO SCH (09:00)
[2019-12-23] MEDS: MORPHINE 4 MG/1 ML VIAL IV PRN (12:33)
[2019-12-23] MEDS ORDERED: AZITHROMYCIN INJ 500 MG in SODIUM CHLORIDE 0.9% 250 ML IV SCH (15:00)
[2019-12-23] MEDS: cefTRIAXone 1,000 MG in SYRINGE 1 EACH IV SCH (16:59)
[2019-12-23] MEDS: ONDANSETRON 4 MG/2 ML VIAL IV PRN (21:54)
[2019-12-24] MEDS: HEPARIN 5,000 UNIT/1 ML VIAL SUBCUT SCH ×3 (00:14→17:29)
[2019-12-24] MEDS: MORPHINE 4 MG/1 ML VIAL IV PRN ×2 (04:53→13:55)
[2019-12-24 05:45] LABS: Basophils % 0.1 % (0.0-0.8); Hematocrit 33.9 VOL% (35.7-47.0); Hemoglobin 11.2 GM/DL (12.0-16.0); Immature Granulocytes % 1.9 %; Immature Granulocytes Absolute 0.15 #; Lymphocytes # 1.8 10*3/uL (1.4-4.0); Lymphocytes % 22.5 % (21.3-54.2); Mean Corpuscular Volume 93.6 FL (87-102); Neutrophils % 67.5 % (38.7-73.9); Platelet Count 293 T/CUMM (130-400); Red Blood Count 3.62 MC/CUMM (3.8-5.5); Red Cell Distribution Width 14.6 % (9.3-17.3); White Blood Count 8.1 T/CUMM (4-12)
[2019-12-24 05:58] LABS: Calcium 7.8 MG/DL (8.5-10.1); Osmolality,Calculated 272.9 MOS/KG (273-304)
[2019-12-24 06:09] LABS: Hypochromasia 1+
[2019-12-24 06:10] LABS: Ovalocytes Slight; Platelet Estimate Adequate
[2019-12-24 07:02] LABS: Ferritin 3314.2 ng/ml (8-252)
[2019-12-24] MEDS: POTASSIUM CHLORIDE 20 MEQ TABLET PO SCH ×3 (08:05→20:55)
[2019-12-24] MEDS: INSULIN LISPRO 100 UNIT/ML SUBCUT SCH ×4 (08:39→20:54)
[2019-12-24] MEDS: AZITHROMYCIN 250 MG TABLET PO SCH (09:05)
[2019-12-24] MEDS: cefTRIAXone 1,000 MG in SYRINGE 1 EACH IV SCH (09:05)
[2019-12-24] MEDS: ONDANSETRON 4 MG/2 ML VIAL IV PRN (12:05)
[2019-12-25] MEDS: HEPARIN 5,000 UNIT/1 ML VIAL SUBCUT SCH ×3 (01:35→16:52)
[2019-12-25] MEDS: MORPHINE 4 MG/1 ML VIAL IV PRN (01:35)
[2019-12-25 05:33] LABS: Basophils % 0.3 % (0.0-0.8); Hematocrit 36.9 VOL% (35.7-47.0); Hemoglobin 11.7 GM/DL (12.0-16.0); Immature Granulocytes % 2.4 %; Immature Granulocytes Absolute 0.19 #; Lymphocytes # 2.1 10*3/uL (1.4-4.0); Mean Corpuscular HGB Conc 31.7 GM/DL (32-36); Mean Corpuscular Volume 97.4 FL (87-102); Mean Platelet Volume 9.9 FL (9.6-12.0); Monocytes % 10.4 % (1.7-12.7); Neutrophils % 59.9 % (38.7-73.9); Platelet Count 290 T/CUMM (130-400); Red Blood Count 3.79 MC/CUMM (3.8-5.5); Red Cell Distribution Width 14.6 % (9.3-17.3); White Blood Count 7.9 T/CUMM (4-12)
[2019-12-25 05:59] LABS: Lymphocytes 24 % (20-55); Platelet Estimate Adequate; Segmented Neutrophils 69 % (50-85); Total Cells Counted 100
[2019-12-25 07:50] LABS: Calcium 7.7 MG/DL (8.5-10.1)
[2019-12-25 07:57] LABS: Osmolality,Calculated 269.8 MOS/KG (273-304)
[2019-12-25] MEDS: INSULIN LISPRO 100 UNIT/ML SUBCUT SCH ×4 (08:08→20:53)
[2019-12-25] MEDS: POTASSIUM CHLORIDE 20 MEQ TABLET PO SCH ×3 (09:37→20:27)
[2019-12-25] MEDS: cefTRIAXone 1,000 MG in SYRINGE 1 EACH IV SCH (09:38)
[2019-12-25] MEDS: AZITHROMYCIN 250 MG TABLET PO SCH (09:58)
[2019-12-25] MEDS: ONDANSETRON 4 MG/2 ML VIAL IV PRN (11:38)
[2019-12-25] MEDS: CYPROHEPTADINE 4 MG TABLET PO SCH (14:29)
[2019-12-26] MEDS: HEPARIN 5,000 UNIT/1 ML VIAL SUBCUT SCH ×2 (00:16→09:10)
[2019-12-26 05:39] LABS: Basophils % 0.4 % (0.0-0.8); Eosinophils % 0.3 % (0.00-10.9); Hematocrit 33.4 VOL% (35.7-47.0); Hemoglobin 10.4 GM/DL (12.0-16.0); Immature Granulocytes % 1.7 %; Immature Granulocytes Absolute 0.12 #; Lymphocytes # 2.1 10*3/uL (1.4-4.0); Lymphocytes % 30.1 % (21.3-54.2); Mean Corpuscular HGB Conc 31.1 GM/DL (32-36); Mean Corpuscular Volume 98.8 FL (87-102); Mean Platelet Volume 9.7 FL (9.6-12.0); Monocytes % 11.3 % (1.7-12.7); Neutrophils % 56.2 % (38.7-73.9); Platelet Count 246 T/CUMM (130-400); Red Blood Count 3.38 MC/CUMM (3.8-5.5); Red Cell Distribution Width 14.7 % (9.3-17.3); White Blood Count 6.9 T/CUMM (4-12)
[2019-12-26 05:56] LABS: Calcium 8.5 MG/DL (8.5-10.1); Osmolality,Calculated 282.2 MOS/KG (273-304)
[2019-12-26] MEDS: ACETAMINOPHEN 325 MG TABLET PO PRN (06:55)
[2019-12-26 08:02] VITALS: BP 145/80
[2019-12-26] MEDS: INSULIN LISPRO 100 UNIT/ML SUBCUT SCH (08:08)
[2019-12-26] MEDS: cefTRIAXone 1,000 MG in SYRINGE 1 EACH IV SCH (09:10)
[2019-12-26] MEDS: CYPROHEPTADINE 4 MG TABLET PO SCH (09:10)
[2019-12-26] MEDS: POTASSIUM CHLORIDE 20 MEQ TABLET PO SCH (09:10)
[2019-12-26] MEDS: AZITHROMYCIN 250 MG TABLET PO SCH (09:10)
== END 2019-12-26 12:05 | disposition home or self-care (01) | DRG 177 ==
LOC: N.ED 10:03 → SUATTDRO 13:40 → N.EDINP 13:40 → N.2E 14:10
PROVIDERS: ADMIT Internal Medicine; ATTEND Hospitalist

== ENCOUNTER 2020-01-02 23:57 | Observation (INO) ==
[2020-01-03] MEDS ORDERED: ONDANSETRON 4 MG/2 ML VIAL IV STA (00:25)
[2020-01-03] MEDS ORDERED: ALBUTEROL/IPRATROPIUM 3 ML NEB RESP TX STA (00:25)
[2020-01-03] MEDS ORDERED: methylPREDNISolone SOD SUC 125 MG/2 ML VIAL IV STA (00:25)
[2020-01-03] MEDS ORDERED: PIPERACILLIN/TAZOBACTAM 3,375 MG in SODIUM CHLORIDE 0.9% 100 ML IV STA (00:25)
[2020-01-03 01:43] LABS: Albumin 2.5 G/DL (3.4-5.0); Bilirubin,Total 0.4 MG/DL (0.2-1.0); Osmolality,Calculated 294.8 MOS/KG (273-304); Total Protein 7.3 G/DL (6.4-8.3)
[2020-01-03 01:45] LABS: PT Patient Result 10.7 SECS (9.8-11.9)
[2020-01-03 01:49] LABS: Basophils % 0.4 % (0.0-0.8); Eosinophils # 0.1 10*3/uL (0.0-0.87); Eosinophils % 1.3 % (0.00-10.9); Hemoglobin 7.4 GM/DL (12.0-16.0); Immature Granulocytes % 1.3 %; Immature Granulocytes Absolute 0.13 #; Lymphocytes # 2.5 10*3/uL (1.4-4.0); Lymphocytes % 25.2 % (21.3-54.2); Mean Corpuscular HGB Conc 29.6 GM/DL (32-36); Mean Corpuscular Volume 106.8 FL (87-102); Mean Platelet Volume 9.7 FL (9.6-12.0); Monocytes % 7.3 % (1.7-12.7); Neutrophils % 64.5 % (38.7-73.9); Platelet Count 229 T/CUMM (130-400); Red Blood Count 2.34 MC/CUMM (3.8-5.5); Red Cell Distribution Width 15.5 % (9.3-17.3)
[2020-01-03] MEDS ORDERED: CALCIUM CHLORIDE 1,000 MG/10 ML SYRINGE IV STA (01:51)
[2020-01-03] MEDS ORDERED: SODIUM POLYSTYRENE SULFATE 15 GM/60 ML BOTTLE PO STA (01:51)
[2020-01-03] MEDS ORDERED: SODIUM BICARBONATE 50 MEQ/50 ML VIAL IV STA (01:51)
[2020-01-03] MEDS ORDERED: ONDANSETRON 4 MG/2 ML VIAL IV PRN (07:20)
[2020-01-03] MEDS ORDERED: ACETAMINOPHEN 325 MG TABLET PO PRN (07:20)
[2020-01-03] MEDS ORDERED: MORPHINE 4 MG/1 ML VIAL IV PRN (07:20)
[2020-01-03] MEDS ORDERED: GLUCAGON 1 MG VIAL IM PRN (07:20)
[2020-01-03] MEDS ORDERED: SODIUM CHLORIDE 0.9% 1,000 ML IV PRN (07:20)
[2020-01-03] MEDS ORDERED: DEXTROSE 50% 25 GM/50 ML VIAL IV PRN (07:20)
[2020-01-03] MEDS ORDERED: hydrALAZINE 20 MG/1 ML VIAL IV PRN (07:20)
[2020-01-03] MEDS: amLODIPine 5 MG TABLET PO SCH (08:39)
[2020-01-03] MEDS: FOLIC ACID 1 MG TABLET PO SCH ×2 (08:39→20:16)
[2020-01-03] MEDS: CYPROHEPTADINE 4 MG TABLET PO SCH (08:39)
[2020-01-03] MEDS: PANTOPRAZOLE 40 MG TABLET PO SCH ×2 (08:39→20:16)
[2020-01-03] MEDS: METOPROLOL SUCCINATE XL 50 MG TABLET PO SCH (08:39)
[2020-01-03] MEDS: INSULIN LISPRO 100 UNIT/ML SUBCUT SCH ×4 (08:40→20:23)
[2020-01-03] MEDS ORDERED: LEVOFLOXACIN 500 MG TABLET PO SCH (09:00)
[2020-01-03] MEDS: SEVELAMER CARBONATE 800 MG TABLET PO SCH ×2 (13:12→17:03)
[2020-01-03 14:32] LABS: Calcium 9.1 MG/DL (8.5-10.1); Osmolality,Calculated 282.2 MOS/KG (273-304)
[2020-01-03] MEDS ORDERED: LATANOPROST 0.005% OPH SOLN 2.5 ML BOTTLE BOTH EYES SCH (21:00)
[2020-01-04 05:47] LABS: Basophils % 0.1 % (0.0-0.8); Hematocrit 26.5 VOL% (35.7-47.0); Hemoglobin 8.1 GM/DL (12.0-16.0); Immature Granulocytes Absolute 0.07 #; Lymphocytes # 1.1 10*3/uL (1.4-4.0); Lymphocytes % 15.8 % (21.3-54.2); Mean Corpuscular HGB Conc 30.6 GM/DL (32-36); Mean Corpuscular Volume 100.8 FL (87-102); Mean Platelet Volume 9.6 FL (9.6-12.0); Monocytes % 8.5 % (1.7-12.7); Neutrophils % 74.6 % (38.7-73.9); Platelet Count 250 T/CUMM (130-400); Red Blood Count 2.63 MC/CUMM (3.8-5.5); Red Cell Distribution Width 16.2 % (9.3-17.3); White Blood Count 6.9 T/CUMM (4-12)
[2020-01-04 06:14] LABS: Calcium 8.3 MG/DL (8.5-10.1); Osmolality,Calculated 283.1 MOS/KG (273-304)
[2020-01-04 07:49] VITALS: BP 158/97
[2020-01-04] MEDS: CYPROHEPTADINE 4 MG TABLET PO SCH (08:04)
[2020-01-04] MEDS: SEVELAMER CARBONATE 800 MG TABLET PO SCH (08:04)
[2020-01-04] MEDS: FOLIC ACID 1 MG TABLET PO SCH (08:05)
[2020-01-04] MEDS: PANTOPRAZOLE 40 MG TABLET PO SCH (08:05)
[2020-01-04] MEDS: METOPROLOL SUCCINATE XL 50 MG TABLET PO SCH (08:05)
[2020-01-04] MEDS: amLODIPine 5 MG TABLET PO SCH (08:05)
[2020-01-04] MEDS: INSULIN LISPRO 100 UNIT/ML SUBCUT SCH (08:21)
[2020-01-05] MEDS ORDERED: LEVOFLOXACIN 250 MG TABLET PO SCH (09:00)
== END 2020-01-04 09:20 | disposition home or self-care (01) ==
LOC: N.EDINP 23:57 → N.ED 23:57 → N.2E 01-03 07:28
PROVIDERS: ADMIT Hospitalist; ATTEND Hospitalist

== ENCOUNTER 2020-03-04 20:26 | Inpatient (IN) ==
[2020-03-05 00:03] LABS: Basophils % 0.4 % (0.0-0.8); Eosinophils # 0.1 10*3/uL (0.0-0.87); Eosinophils % 1.2 % (0.00-10.9); Hematocrit 33.4 VOL% (35.7-47.0); Hemoglobin 10.3 GM/DL (12.0-16.0); Immature Granulocytes % 0.7 %; Immature Granulocytes Absolute 0.06 #; Lymphocytes # 1.1 10*3/uL (1.4-4.0); Lymphocytes % 11.9 % (21.3-54.2); Mean Corpuscular HGB Conc 30.8 GM/DL (32-36); Mean Corpuscular Volume 105.4 FL (87-102); Mean Platelet Volume 8.9 FL (9.6-12.0); Monocytes % 6.8 % (1.7-12.7); Platelet Count 279 T/CUMM (130-400); Red Blood Count 3.17 MC/CUMM (3.8-5.5); Red Cell Distribution Width 16.4 % (9.3-17.3); White Blood Count 8.9 T/CUMM (4-12)
[2020-03-05 00:17] LABS: Albumin 3.4 G/DL (3.4-5.0); Bilirubin,Total 0.4 MG/DL (0.2-1.0); Calcium 8.9 MG/DL (8.5-10.1); Osmolality,Calculated 297.5 MOS/KG (273-304); Total Protein 7.7 G/DL (6.4-8.3)
[2020-03-05] MEDS ORDERED: MORPHINE 4 MG/1 ML VIAL IV STA (00:42)
[2020-03-05 01:26] LABS: Apearance,Urine CLEAR (Clear); Bilirubin,Urine Negative (Negative); Blood, Urine Negative (Negative); Glucose,Urine (UA) 150 mg/dL (Negative); Ketones,Urine Negative (Negative); Nitrite,Urine Negative (Negative); Protein,Urine >=500 MG/DL; RBC,Urine 3 /HPF (0-4); Squamous Epithelial Cell,Urine Occasional /HPF (0-10); Urine Color Yellow (Yellow); Urine Specific Gravity 1.024 (1.001-1.035); Urine Urobilinogen < 2.0 EU/DL (0.2-1.0); WBC,Urine 10 /HPF (0-6)
[2020-03-05] MEDS ORDERED: METOCLOPRAMIDE 10 MG/2 ML VIAL IV STA (01:27)
[2020-03-05] MEDS ORDERED: LEVOFLOXACIN 500 MG TABLET PO STA (02:01)
[2020-03-05] MEDS ORDERED: GLUCAGON 1 MG VIAL IM PRN (02:37)
[2020-03-05] MEDS ORDERED: NICOTINE 21 MG/24 HR PATCH TRANSDERM PRN (02:37)
[2020-03-05] MEDS ORDERED: DEXTROSE 50% 25 GM/50 ML VIAL IV PRN (02:37)
[2020-03-05] MEDS: hydrALAZINE 20 MG/1 ML VIAL IV PRN ×2 (03:53→20:41)
[2020-03-05 04:44] LABS: Albumin 3.1 G/DL (3.4-5.0); Bilirubin,Direct 0.17 MG/DL (0.0-0.20); Bilirubin,Indirect 0.2 MG/DL (0.0-1.0); Bilirubin,Total 0.4 MG/DL (0.2-1.0); Total Protein 7.6 G/DL (6.4-8.3)
[2020-03-05 04:53] LABS: Risk Ratio 1.95; VLDL CHOLESTEROL 11.2 MG/DL
[2020-03-05 05:51] LABS: Hepatitis B Core IgM Quant 0.15 Index; Hepatitis B Surface Ag Quant < 0.10 Index; Hepatitis B Surface Ag Result Negative (Negative); Hepatitis C Virus Ab Quant 0.13 Index; Hepatitis C Virus Ab Result Negative (Negative)
[2020-03-05] MEDS: INSULIN REGULAR 100 UNIT/ML SUBCUT SCH ×3 (06:33→19:10)
[2020-03-05] MEDS: MORPHINE 4 MG/1 ML VIAL IV PRN (09:20)
[2020-03-05] MEDS: ONDANSETRON 4 MG/2 ML VIAL IV PRN (11:22)
[2020-03-05] MEDS ORDERED: METOCLOPRAMIDE 5 MG TABLET PO PRN (12:06)
[2020-03-05] MEDS ORDERED: ONDANSETRON 4 MG TABLET PO PRN (12:06)
[2020-03-05] MEDS: LACTULOSE 20 GM/30 ML UDCUP PO SCH ×3 (18:32→20:41)
[2020-03-05] MEDS: amLODIPine 5 MG TABLET PO SCH (18:33)
[2020-03-05] MEDS: POLYETHYLENE GLYCOL POWDER 17 GM PACK PO SCH ×2 (18:33→20:40)
[2020-03-05] MEDS: PANTOPRAZOLE 40 MG TABLET PO SCH ×2 (18:33→20:41)
[2020-03-05] MEDS: FOLIC ACID 1 MG TABLET PO SCH ×2 (18:39→20:41)
[2020-03-05] MEDS: SEVELAMER CARBONATE 800 MG TABLET PO SCH (18:39)
[2020-03-05] MEDS: DOCUSATE SODIUM 100 MG CAPSULE PO SCH (20:40)
[2020-03-05] MEDS: LATANOPROST 0.005% OPH SOLN 2.5 ML BOTTLE BOTH EYES SCH (20:41)
[2020-03-05] MEDS ORDERED: SENNA 8.6 MG TABLET PO SCH (21:00)
[2020-03-06] MEDS: INSULIN REGULAR 100 UNIT/ML SUBCUT SCH ×4 (00:25→18:04)
[2020-03-06] MEDS: LACTULOSE 20 GM/30 ML UDCUP PO SCH ×3 (00:27→09:53)
[2020-03-06 06:22] LABS: Basophils % 0.6 % (0.0-0.8); Eosinophils % 0.2 % (0.00-10.9); Hematocrit 33.4 VOL% (35.7-47.0); Hemoglobin 10.5 GM/DL (12.0-16.0); Immature Granulocytes % 1.4 %; Immature Granulocytes Absolute 0.07 #; Lymphocytes # 0.8 10*3/uL (1.4-4.0); Lymphocytes % 16.3 % (21.3-54.2); Mean Corpuscular HGB Conc 31.4 GM/DL (32-36); Mean Corpuscular Volume 101.8 FL (87-102); Mean Platelet Volume 8.9 FL (9.6-12.0); Monocytes % 10.3 % (1.7-12.7); Neutrophils % 71.2 % (38.7-73.9); Platelet Count 246 T/CUMM (130-400); Red Blood Count 3.28 MC/CUMM (3.8-5.5); Red Cell Distribution Width 16.1 % (9.3-17.3)
[2020-03-06 06:30] LABS: % Iron Saturation 25.1 % (18-50); Calcium 9.8 MG/DL (8.5-10.1); Ferritin 838.7 ng/ml (8-252); Osmolality,Calculated 279.8 MOS/KG (273-304)
[2020-03-06 07:01] LABS: Folate > 24.0 NG/ML (5.4-24.0); Vitamin B12 537 PG/ML (211-911)
[2020-03-06 07:46] LABS: Sedimentation Rate-Westergren 54 MM/HR (0-20)
[2020-03-06 09:05] LABS: Hemoglobin A1 (Alkaline) 97.1 % (96.5-98.5); Hemoglobin A2 (Alkaline) 2.9 % (1.5-3.5)
[2020-03-06] MEDS: SEVELAMER CARBONATE 800 MG TABLET PO SCH ×3 (09:53→17:32)
[2020-03-06] MEDS: DOCUSATE SODIUM 100 MG CAPSULE PO SCH ×2 (09:54→20:19)
[2020-03-06] MEDS: POLYETHYLENE GLYCOL POWDER 17 GM PACK PO SCH ×3 (09:54→20:19)
[2020-03-06] MEDS: PANTOPRAZOLE 40 MG TABLET PO SCH ×2 (09:54→20:19)
[2020-03-06] MEDS: FOLIC ACID 1 MG TABLET PO SCH ×2 (09:55→20:19)
[2020-03-06] MEDS: amLODIPine 5 MG TABLET PO SCH (09:55)
[2020-03-06] MEDS: MORPHINE 4 MG/1 ML VIAL IV PRN ×2 (12:56→20:20)
[2020-03-06] MEDS ORDERED: METOPROLOL SUCCINATE XL 50 MG TABLET PO SCH (14:30)
[2020-03-06] MEDS ORDERED: METOPROLOL SUCCINATE XL 100 MG TABLET PO SCH (16:22)
[2020-03-06] MEDS: HEPARIN 5,000 UNIT/1 ML VIAL SUBCUT SCH (17:32)
[2020-03-06] MEDS: PIPERACILLIN/TAZOBACTAM 3,375 MG in SODIUM CHLORIDE 0.9% 100 ML IV SCH (17:32)
[2020-03-06] MEDS: ONDANSETRON 4 MG/2 ML VIAL IV PRN (18:48)
[2020-03-06] MEDS: LATANOPROST 0.005% OPH SOLN 2.5 ML BOTTLE BOTH EYES SCH (20:20)
[2020-03-07] MEDS: PIPERACILLIN/TAZOBACTAM 3,375 MG in SODIUM CHLORIDE 0.9% 100 ML IV SCH ×3 (00:03→17:18)
[2020-03-07] MEDS: INSULIN REGULAR 100 UNIT/ML SUBCUT SCH ×4 (00:04→18:00)
[2020-03-07] MEDS: HEPARIN 5,000 UNIT/1 ML VIAL SUBCUT SCH ×2 (04:37→17:17)
[2020-03-07 06:07] LABS: Basophils % 0.4 % (0.0-0.8); Eosinophils % 0.6 % (0.00-10.9); Hematocrit 34.9 VOL% (35.7-47.0); Hemoglobin 10.8 GM/DL (12.0-16.0); Immature Granulocytes % 1.9 %; Immature Granulocytes Absolute 0.09 #; Mean Corpuscular HGB Conc 30.9 GM/DL (32-36); Mean Corpuscular Volume 103.3 FL (87-102); Mean Platelet Volume 9.3 FL (9.6-12.0); Monocytes % 10.3 % (1.7-12.7); Neutrophils % 65.8 % (38.7-73.9); Platelet Count 272 T/CUMM (130-400); Red Blood Count 3.38 MC/CUMM (3.8-5.5); Red Cell Distribution Width 15.6 % (9.3-17.3); White Blood Count 4.8 T/CUMM (4-12)
[2020-03-07 06:26] LABS: Calcium 9.3 MG/DL (8.5-10.1); Osmolality,Calculated 277.4 MOS/KG (273-304)
[2020-03-07] MEDS: SEVELAMER CARBONATE 800 MG TABLET PO SCH ×3 (08:56→17:16)
[2020-03-07] MEDS: DOCUSATE SODIUM 100 MG CAPSULE PO SCH ×2 (08:57→20:55)
[2020-03-07] MEDS: FOLIC ACID 1 MG TABLET PO SCH ×2 (08:57→20:55)
[2020-03-07] MEDS: PANTOPRAZOLE 40 MG TABLET PO SCH ×2 (08:58→20:55)
[2020-03-07] MEDS: POLYETHYLENE GLYCOL POWDER 17 GM PACK PO SCH (08:58)
[2020-03-07] MEDS: amLODIPine 10 MG TABLET PO SCH (08:58)
[2020-03-07] MEDS: MORPHINE 4 MG/1 ML VIAL IV PRN (14:40)
[2020-03-07] MEDS: ACETAMINOPHEN 325 MG TABLET PO PRN (17:16)
[2020-03-07] MEDS: LATANOPROST 0.005% OPH SOLN 2.5 ML BOTTLE BOTH EYES SCH (20:55)
[2020-03-08] MEDS: INSULIN REGULAR 100 UNIT/ML SUBCUT SCH ×4 (00:51→18:17)
[2020-03-08] MEDS: PIPERACILLIN/TAZOBACTAM 3,375 MG in SODIUM CHLORIDE 0.9% 100 ML IV SCH ×3 (01:06→15:41)
[2020-03-08] MEDS: HEPARIN 5,000 UNIT/1 ML VIAL SUBCUT SCH ×2 (05:26→18:06)
[2020-03-08] MEDS: ACETAMINOPHEN 325 MG TABLET PO PRN (06:12)
[2020-03-08 06:18] LABS: Basophils % 0.8 % (0.0-0.8); Eosinophils # 0.1 10*3/uL (0.0-0.87); Hematocrit 33.9 VOL% (35.7-47.0); Hemoglobin 10.7 GM/DL (12.0-16.0); Immature Granulocytes % 1.4 %; Immature Granulocytes Absolute 0.07 #; Lymphocytes # 1.9 10*3/uL (1.4-4.0); Lymphocytes % 37.8 % (21.3-54.2); Mean Corpuscular HGB Conc 31.6 GM/DL (32-36); Mean Corpuscular Volume 101.8 FL (87-102); Mean Platelet Volume 9.3 FL (9.6-12.0); Platelet Count 287 T/CUMM (130-400); Red Blood Count 3.33 MC/CUMM (3.8-5.5); Red Cell Distribution Width 15.1 % (9.3-17.3)
[2020-03-08 06:45] LABS: Calcium 9.5 MG/DL (8.5-10.1); Osmolality,Calculated 269.5 MOS/KG (273-304)
[2020-03-08] MEDS: METOPROLOL SUCCINATE XL 100 MG TABLET PO SCH (08:26)
[2020-03-08] MEDS: SEVELAMER CARBONATE 800 MG TABLET PO SCH ×3 (08:26→18:06)
[2020-03-08] MEDS: DOCUSATE SODIUM 100 MG CAPSULE PO SCH ×2 (08:26→21:11)
[2020-03-08] MEDS: PANTOPRAZOLE 40 MG TABLET PO SCH ×2 (08:26→21:11)
[2020-03-08] MEDS: FOLIC ACID 1 MG TABLET PO SCH ×2 (08:26→21:11)
[2020-03-08] MEDS: amLODIPine 10 MG TABLET PO SCH (08:26)
[2020-03-08] MEDS: MORPHINE 4 MG/1 ML VIAL IV PRN ×2 (08:27→18:07)
[2020-03-08] MEDS: ONDANSETRON 4 MG/2 ML VIAL IV SCH ×3 (14:54→21:11)
[2020-03-08] MEDS: METOCLOPRAMIDE 10 MG/2 ML VIAL IV SCH ×2 (15:12→18:06)
[2020-03-08] MEDS: hydrALAZINE 25 MG TABLET PO SCH ×2 (15:13→21:11)
[2020-03-08] MEDS: LATANOPROST 0.005% OPH SOLN 2.5 ML BOTTLE BOTH EYES SCH (21:10)
[2020-03-09] MEDS: INSULIN REGULAR 100 UNIT/ML SUBCUT SCH ×4 (00:12→17:37)
[2020-03-09] MEDS: METOCLOPRAMIDE 10 MG/2 ML VIAL IV SCH ×4 (00:48→17:37)
[2020-03-09] MEDS: ONDANSETRON 4 MG/2 ML VIAL IV SCH ×4 (01:40→12:08)
[2020-03-09] MEDS: PIPERACILLIN/TAZOBACTAM 3,375 MG in SODIUM CHLORIDE 0.9% 100 ML IV SCH ×2 (01:43→09:04)
[2020-03-09] MEDS: HEPARIN 5,000 UNIT/1 ML VIAL SUBCUT SCH (04:56)
[2020-03-09 07:55] LABS: Basophils % 0.7 % (0.0-0.8); Eosinophils # 0.1 10*3/uL (0.0-0.87); Eosinophils % 1.4 % (0.00-10.9); Hematocrit 33.1 VOL% (35.7-47.0); Hemoglobin 10.4 GM/DL (12.0-16.0); Immature Granulocytes % 1.2 %; Immature Granulocytes Absolute 0.07 #; Lymphocytes # 1.1 10*3/uL (1.4-4.0); Lymphocytes % 19.3 % (21.3-54.2); Mean Corpuscular HGB Conc 31.4 GM/DL (32-36); Mean Corpuscular Volume 100.9 FL (87-102); Mean Platelet Volume 8.7 FL (9.6-12.0); Monocytes % 7.5 % (1.7-12.7); Neutrophils % 69.9 % (38.7-73.9); Platelet Count 254 T/CUMM (130-400); Red Blood Count 3.28 MC/CUMM (3.8-5.5); Red Cell Distribution Width 15.3 % (9.3-17.3); White Blood Count 5.9 T/CUMM (4-12)
[2020-03-09 08:07] LABS: Calcium 9.1 MG/DL (8.5-10.1); Osmolality,Calculated 267.1 MOS/KG (273-304)
[2020-03-09] MEDS: METOPROLOL SUCCINATE XL 100 MG TABLET PO SCH (09:03)
[2020-03-09] MEDS: PANTOPRAZOLE 40 MG TABLET PO SCH (09:03)
[2020-03-09] MEDS: DOCUSATE SODIUM 100 MG CAPSULE PO SCH (09:03)
[2020-03-09] MEDS: hydrALAZINE 25 MG TABLET PO SCH (09:03)
[2020-03-09] MEDS: SEVELAMER CARBONATE 800 MG TABLET PO SCH ×3 (09:04→17:37)
[2020-03-09] MEDS: FOLIC ACID 1 MG TABLET PO SCH (09:04)
[2020-03-09] MEDS: amLODIPine 10 MG TABLET PO SCH (09:04)
[2020-03-09] MEDS: MORPHINE 4 MG/1 ML VIAL IV PRN (09:29)
[2020-03-09] MEDS: ACETAMINOPHEN 325 MG TABLET PO PRN (15:58)
[2020-03-09 16:11] VITALS: BP 140/78
[2020-03-10 17:16] LABS: Soluble Transf Receptor (sTfR) 7.4 mg/L (1.8 - 4.6)
== END 2020-03-09 15:20 | disposition home or self-care (01) | DRG 73 ==
LOC: N.EDINP 20:26 → N.ED 20:26 → N.EDINP 03-05 11:47 → N.3E 03-05 16:46 → SUATTDRO 03-08 18:14
PROVIDERS: ADMIT Hospitalist; ATTEND Internal Medicine

== ENCOUNTER 2020-03-09 19:39 | Inpatient (IN) ==
[2020-03-09 21:41] LABS: Basophils % 0.3 % (0.0-0.8); Eosinophils # 0.1 10*3/uL (0.0-0.87); Eosinophils % 0.9 % (0.00-10.9); Hematocrit 34.1 VOL% (35.7-47.0); Hemoglobin 10.8 GM/DL (12.0-16.0); Immature Granulocytes % 0.8 %; Immature Granulocytes Absolute 0.06 #; Lymphocytes # 1.5 10*3/uL (1.4-4.0); Lymphocytes % 18.3 % (21.3-54.2); Mean Corpuscular HGB Conc 31.7 GM/DL (32-36); Mean Corpuscular Volume 100.9 FL (87-102); Mean Platelet Volume 8.7 FL (9.6-12.0); Monocytes % 6.4 % (1.7-12.7); Neutrophils % 73.3 % (38.7-73.9); Platelet Count 278 T/CUMM (130-400); Red Blood Count 3.38 MC/CUMM (3.8-5.5); Red Cell Distribution Width 15.4 % (9.3-17.3); White Blood Count 7.9 T/CUMM (4-12)
[2020-03-09 22:00] LABS: Albumin 3.3 G/DL (3.4-5.0); Bilirubin,Total 0.4 MG/DL (0.2-1.0); Calcium 8.8 MG/DL (8.5-10.1); Osmolality,Calculated 265.4 MOS/KG (273-304)
[2020-03-09] MEDS ORDERED: DEXTROSE 50% 25 GM/50 ML VIAL IV PRN (22:56)
[2020-03-09] MEDS ORDERED: ONDANSETRON 4 MG/2 ML VIAL IV PRN (22:56)
[2020-03-09] MEDS ORDERED: GLUCAGON 1 MG VIAL IM PRN (22:56)
[2020-03-09] MEDS ORDERED: ZALEPLON 5 MG CAPSULE PO PRN (22:56)
[2020-03-09] MEDS ORDERED: DICYCLOMINE 20 MG TABLET PO PRN (23:55)
[2020-03-09] MEDS ORDERED: METOCLOPRAMIDE 5 MG TABLET PO PRN (23:55)
[2020-03-10] MEDS: ACETAMINOPHEN 325 MG TABLET PO PRN (00:41)
[2020-03-10] MEDS ORDERED: PNEUMOCOCCAL VACCINE (13 VALENT) 0.5 ML SYRINGE IM ONE (02:21)
[2020-03-10 07:31] LABS: Basophils % 0.5 % (0.0-0.8); Eosinophils # 0.1 10*3/uL (0.0-0.87); Eosinophils % 1.2 % (0.00-10.9); Hemoglobin 10.8 GM/DL (12.0-16.0); Immature Granulocytes % 0.9 %; Immature Granulocytes Absolute 0.06 #; Lymphocytes # 1.7 10*3/uL (1.4-4.0); Lymphocytes % 26.5 % (21.3-54.2); Mean Corpuscular HGB Conc 31.8 GM/DL (32-36); Mean Corpuscular Volume 102.7 FL (87-102); Monocytes % 7.2 % (1.7-12.7); Neutrophils % 63.7 % (38.7-73.9); Platelet Count 258 T/CUMM (130-400); Red Blood Count 3.31 MC/CUMM (3.8-5.5); Red Cell Distribution Width 15.4 % (9.3-17.3); White Blood Count 6.5 T/CUMM (4-12)
[2020-03-10 07:52] LABS: Albumin 3.2 G/DL (3.4-5.0); Bilirubin,Total 1.2 MG/DL (0.2-1.0); Calcium 9.6 MG/DL (8.5-10.1); Osmolality,Calculated 269.1 MOS/KG (273-304); Total Protein 7.8 G/DL (6.4-8.3)
[2020-03-10] MEDS ORDERED: ENOXAPARIN 30 MG/0.3 ML SYRINGE SUBCUT SCH (08:00)
[2020-03-10] MEDS ORDERED: PANTOPRAZOLE 40 MG TABLET PO SCH (09:00)
[2020-03-10] MEDS: INSULIN REGULAR 100 UNIT/ML SUBCUT SCH ×4 (09:16→22:16)
[2020-03-10] MEDS: SEVELAMER CARBONATE 800 MG TABLET PO SCH ×3 (12:53→18:35)
[2020-03-10] MEDS: METOPROLOL SUCCINATE XL 100 MG TABLET PO SCH (12:53)
[2020-03-10] MEDS: DOCUSATE SODIUM 100 MG CAPSULE PO SCH ×2 (12:54→21:20)
[2020-03-10] MEDS: amLODIPine 10 MG TABLET PO SCH (12:54)
[2020-03-10] MEDS: PANTOPRAZOLE 40 MG TABLET PO SCH ×2 (12:54→21:20)
[2020-03-10] MEDS: hydrALAZINE 25 MG TABLET PO SCH ×2 (12:55→21:20)
[2020-03-10] MEDS: HEPARIN 5,000 UNIT/1 ML VIAL SUBCUT SCH ×2 (14:40→21:20)
[2020-03-10] MEDS: MORPHINE 4 MG/1 ML VIAL IV PRN ×2 (15:57→22:05)
[2020-03-10] MEDS: MAGNESIUM HYDROXIDE SUSP 30 ML UDCUP PO PRN ×2 (15:57→21:20)
[2020-03-10] MEDS: LATANOPROST 0.005% OPH SOLN 2.5 ML BOTTLE BOTH EYES SCH (21:20)
[2020-03-11] MEDS: HEPARIN 5,000 UNIT/1 ML VIAL SUBCUT SCH ×3 (05:21→20:36)
[2020-03-11] MEDS: MAGNESIUM HYDROXIDE SUSP 30 ML UDCUP PO PRN ×2 (08:41→20:35)
[2020-03-11 08:47] LABS: Calcium 9.5 MG/DL (8.5-10.1); Osmolality,Calculated 267.7 MOS/KG (273-304)
[2020-03-11] MEDS: INSULIN REGULAR 100 UNIT/ML SUBCUT SCH ×4 (09:42→20:36)
[2020-03-11] MEDS: SEVELAMER CARBONATE 800 MG TABLET PO SCH ×3 (09:43→17:19)
[2020-03-11] MEDS: DOCUSATE SODIUM 100 MG CAPSULE PO SCH ×2 (09:44→20:34)
[2020-03-11] MEDS: hydrALAZINE 25 MG TABLET PO SCH ×2 (09:44→20:35)
[2020-03-11] MEDS: amLODIPine 10 MG TABLET PO SCH (09:44)
[2020-03-11] MEDS: PANTOPRAZOLE 40 MG TABLET PO SCH ×2 (09:44→20:34)
[2020-03-11] MEDS: METOPROLOL SUCCINATE XL 100 MG TABLET PO SCH (09:44)
[2020-03-11] MEDS: MORPHINE 4 MG/1 ML VIAL IV PRN ×2 (09:51→18:45)
[2020-03-11] MEDS: GABAPENTIN 100 MG CAPSULE PO SCH (20:35)
[2020-03-11] MEDS: LATANOPROST 0.005% OPH SOLN 2.5 ML BOTTLE BOTH EYES SCH (20:35)
[2020-03-12] MEDS: HEPARIN 5,000 UNIT/1 ML VIAL SUBCUT SCH ×3 (06:02→20:42)
[2020-03-12 06:23] LABS: Basophils % 0.5 % (0.0-0.8); Eosinophils # 0.1 10*3/uL (0.0-0.87); Eosinophils % 1.1 % (0.00-10.9); Hematocrit 32.6 VOL% (35.7-47.0); Hemoglobin 10.2 GM/DL (12.0-16.0); Immature Granulocytes % 0.6 %; Immature Granulocytes Absolute 0.04 #; Lymphocytes # 1.5 10*3/uL (1.4-4.0); Lymphocytes % 23.3 % (21.3-54.2); Mean Corpuscular HGB Conc 31.3 GM/DL (32-36); Mean Corpuscular Volume 103.2 FL (87-102); Mean Platelet Volume 9.7 FL (9.6-12.0); Monocytes % 12.3 % (1.7-12.7); Neutrophils % 62.2 % (38.7-73.9); Platelet Count 279 T/CUMM (130-400); Red Blood Count 3.16 MC/CUMM (3.8-5.5); Red Cell Distribution Width 15.3 % (9.3-17.3); White Blood Count 6.3 T/CUMM (4-12)
[2020-03-12 07:02] LABS: Osmolality,Calculated 271.5 MOS/KG (273-304)
[2020-03-12] MEDS: hydrALAZINE 25 MG TABLET PO SCH ×2 (09:06→20:40)
[2020-03-12] MEDS: METOPROLOL SUCCINATE XL 100 MG TABLET PO SCH (09:06)
[2020-03-12] MEDS: SEVELAMER CARBONATE 800 MG TABLET PO SCH ×3 (09:06→17:14)
[2020-03-12] MEDS: amLODIPine 10 MG TABLET PO SCH (09:06)
[2020-03-12] MEDS: DOCUSATE SODIUM 100 MG CAPSULE PO SCH ×2 (09:06→20:40)
[2020-03-12] MEDS: PANTOPRAZOLE 40 MG TABLET PO SCH ×2 (09:06→20:40)
[2020-03-12] MEDS: INSULIN REGULAR 100 UNIT/ML SUBCUT SCH ×4 (09:06→20:41)
[2020-03-12] MEDS: GABAPENTIN 100 MG CAPSULE PO SCH ×3 (09:06→20:42)
[2020-03-12] MEDS: ACETAMINOPHEN 325 MG TABLET PO PRN ×2 (10:26→20:41)
[2020-03-12] MEDS: LATANOPROST 0.005% OPH SOLN 2.5 ML BOTTLE BOTH EYES SCH (20:42)
[2020-03-13] MEDS: HEPARIN 5,000 UNIT/1 ML VIAL SUBCUT SCH ×2 (05:27→14:20)
[2020-03-13 05:47] LABS: Basophils % 0.5 % (0.0-0.8); Eosinophils # 0.1 10*3/uL (0.0-0.87); Eosinophils % 1.2 % (0.00-10.9); Hemoglobin 10.1 GM/DL (12.0-16.0); Immature Granulocytes % 0.7 %; Immature Granulocytes Absolute 0.04 #; Lymphocytes # 1.4 10*3/uL (1.4-4.0); Lymphocytes % 24.9 % (21.3-54.2); Mean Corpuscular HGB Conc 31.6 GM/DL (32-36); Mean Corpuscular Volume 102.2 FL (87-102); Mean Platelet Volume 9.6 FL (9.6-12.0); Monocytes % 13.4 % (1.7-12.7); Neutrophils % 59.3 % (38.7-73.9); Platelet Count 269 T/CUMM (130-400); Red Blood Count 3.13 MC/CUMM (3.8-5.5); Red Cell Distribution Width 15.3 % (9.3-17.3); White Blood Count 5.7 T/CUMM (4-12)
[2020-03-13 06:08] LABS: Calcium 8.6 MG/DL (8.5-10.1); Osmolality,Calculated 270.4 MOS/KG (273-304)
[2020-03-13] MEDS ORDERED: methylPREDNISolone ACETATE 80 MG/1 ML VIAL ONE (11:50)
[2020-03-13] MEDS ORDERED: ROPIVACAINE 0.5% 30 ML VIAL ONE (11:50)
[2020-03-13] MEDS ORDERED: SODIUM CHLORIDE 0.9% 250 ML IV SCH (12:30)
[2020-03-13] MEDS ORDERED: fentaNYL 100 MCG/2 ML VIAL ONE (13:12)
[2020-03-13] MEDS ORDERED: MIDAZOLAM 2 MG/2 ML VIAL ONE (13:12)
[2020-03-13] MEDS ORDERED: LIDOCAINE 2% 5 ML VIAL ONE (13:12)
[2020-03-13] MEDS ORDERED: propofoL 200 MG/20 ML VIAL IV ONE (13:12)
[2020-03-13 13:38] VITALS: BP 166/81
[2020-03-13] MEDS: INSULIN REGULAR 100 UNIT/ML SUBCUT SCH ×2 (14:17→14:48)
[2020-03-13] MEDS: GABAPENTIN 100 MG CAPSULE PO SCH (14:17)
[2020-03-13] MEDS: DOCUSATE SODIUM 100 MG CAPSULE PO SCH (14:18)
[2020-03-13] MEDS: hydrALAZINE 25 MG TABLET PO SCH (14:18)
[2020-03-13] MEDS: SEVELAMER CARBONATE 800 MG TABLET PO SCH ×2 (14:18→14:48)
[2020-03-13] MEDS: amLODIPine 10 MG TABLET PO SCH (14:18)
[2020-03-13] MEDS: PANTOPRAZOLE 40 MG TABLET PO SCH (14:19)
[2020-03-13] MEDS: METOPROLOL SUCCINATE XL 100 MG TABLET PO SCH (14:19)
== END 2020-03-13 14:47 | disposition home or self-care (01) | DRG 551 ==
LOC: N.ED 19:39 → N.EDINP 19:39 → N.3E 23:59
PROVIDERS: ADMIT Internal Medicine; ATTEND Internal Medicine

== ENCOUNTER 2020-08-09 07:37 | Observation (INO) ==
[2020-08-09 09:33] LABS: Basophils % 0.5 % (0.0-0.8); Eosinophils # 0.1 10*3/uL (0.0-0.87); Eosinophils % 1.1 % (0.00-10.9); Hematocrit 32.4 VOL% (35.7-47.0); Hemoglobin 9.6 GM/DL (12.0-16.0); Immature Granulocytes % 2.1 %; Immature Granulocytes Absolute 0.17 #; Lymphocytes # 1.3 10*3/uL (1.4-4.0); Lymphocytes % 15.8 % (21.3-54.2); Mean Corpuscular HGB Conc 29.6 GM/DL (32-36); Mean Platelet Volume 9.2 FL (9.6-12.0); NRBC # 0.02 10*3/uL; Neutrophils % 72.5 % (38.7-73.9); Platelet Count 228 T/CUMM (130-400); Red Blood Count 2.92 MC/CUMM (3.8-5.5); Red Cell Distribution Width 16.8 % (9.3-17.3); White Blood Count 8.1 T/CUMM (4-12)
[2020-08-09] MEDS ORDERED: GLUCAGON 1 MG VIAL IM PRN (09:40)
[2020-08-09] MEDS ORDERED: DEXTROSE 50% 25 GM/50 ML SYRINGE IV ONE (09:42)
[2020-08-09] MEDS: DEXTROSE 50% 25 GM/50 ML VIAL IV PRN ×2 (09:43→16:10)
[2020-08-09 09:51] LABS: Hypochromasia 1+
[2020-08-09 09:52] LABS: Macrocytosis 1+; Platelet Estimate Normal; Polychromasia Slight
[2020-08-09] MEDS ORDERED: ACETAMINOPHEN 500 MG TABLET PO STA (10:03)
[2020-08-09 10:20] LABS: Albumin 3.6 G/DL (3.4-5.0); Bilirubin,Total 0.4 MG/DL (0.2-1.0); Calcium 8.3 MG/DL (8.5-10.1); Total Protein 7.9 G/DL (6.4-8.3)
[2020-08-09 10:28] LABS: Osmolality,Calculated 325.8 MOS/KG (273-304)
[2020-08-09] MEDS ORDERED: ACETAMINOPHEN 325 MG TABLET PO PRN (11:52)
[2020-08-09] MEDS ORDERED: BISACODYL 5 MG TABLET PO PRN (11:52)
[2020-08-09] MEDS ORDERED: traMADol 50 MG TABLET PO PRN (11:52)
[2020-08-09 12:28] LABS: Risk Ratio 2.73; Thyroid Stimulating Hormone 4.89 uIU/ml (0.358-3.74)
[2020-08-09 13:02] LABS: Folate 20.3 NG/ML (5.38-24.0)
[2020-08-09] MEDS: INSULIN LISPRO 100 UNIT/ML SUBCUT SCH ×2 (15:48→21:36)
[2020-08-09 17:30] LABS: Hepatitis B Core IgM Quant 0.16 Index; Hepatitis B Surface Ag Quant < 0.10 Index; Hepatitis B Surface Ag Result Non-Reactive (NonReactive); Hepatitis C Virus Ab Quant 0.05 Index; Hepatitis C Virus Ab Result Non-Reactive (NonReactive)
[2020-08-09] MEDS: ONDANSETRON 4 MG/2 ML VIAL IV PRN (19:07)
[2020-08-09] MEDS: SEVELAMER CARBONATE 800 MG TABLET PO SCH (20:19)
[2020-08-09] MEDS: carvediloL 12.5 MG TABLET PO SCH (21:36)
[2020-08-09] MEDS: LATANOPROST 0.005% OPH SOLN 2.5 ML BOTTLE BOTH EYES SCH (21:36)
[2020-08-09] MEDS: HEPARIN 5,000 UNIT/1 ML VIAL SUBCUT SCH (21:36)
[2020-08-09] MEDS ORDERED: PROMETHAZINE 25 MG/1 ML VIAL IM PRN (22:59)
[2020-08-09] MEDS ORDERED: hydrALAZINE 20 MG/1 ML VIAL IV PRN (23:03)
[2020-08-10 06:16] LABS: Basophils % 0.4 % (0.0-0.8); Eosinophils % 0.7 % (0.00-10.9); Hematocrit 29.5 VOL% (35.7-47.0); Hemoglobin 9.1 GM/DL (12.0-16.0); Immature Granulocytes % 0.7 %; Immature Granulocytes Absolute 0.04 #; Lymphocytes # 0.6 10*3/uL (1.4-4.0); Lymphocytes % 10.4 % (21.3-54.2); Mean Corpuscular HGB Conc 30.8 GM/DL (32-36); Mean Corpuscular Volume 105.4 FL (87-102); Mean Platelet Volume 9.6 FL (9.6-12.0); Monocytes % 8.6 % (1.7-12.7); NRBC # 0.02 10*3/uL; Neutrophils % 79.2 % (38.7-73.9); Platelet Count 185 T/CUMM (130-400); Red Cell Distribution Width 16.3 % (9.3-17.3); White Blood Count 5.6 T/CUMM (4-12)
[2020-08-10 06:34] LABS: Calcium 8.8 MG/DL (8.5-10.1); Potassium 3.2 MMOL/L (3.5-5.1)
[2020-08-10 08:13] LABS: Free T4 (Free Thyroxine) 0.87 NG/DL (0.76-1.46)
[2020-08-10] MEDS: INSULIN LISPRO 100 UNIT/ML SUBCUT SCH ×4 (08:50→20:49)
[2020-08-10] MEDS: ONDANSETRON 4 MG/2 ML VIAL IV PRN (09:24)
[2020-08-10] MEDS: SEVELAMER CARBONATE 800 MG TABLET PO SCH ×3 (09:26→18:21)
[2020-08-10] MEDS: carvediloL 12.5 MG TABLET PO SCH ×2 (10:14→21:02)
[2020-08-10] MEDS: ASPIRIN CHEW 81 MG TABLET PO SCH (10:14)
[2020-08-10] MEDS: LOSARTAN 50 MG TABLET PO SCH (10:15)
[2020-08-10] MEDS: HEPARIN 5,000 UNIT/1 ML VIAL SUBCUT SCH ×2 (10:17→21:02)
[2020-08-10] MEDS ORDERED: POTASSIUM CHLORIDE 20 MEQ TABLET PO ONE (12:04)
[2020-08-10] MEDS: PANTOPRAZOLE 40 MG TABLET PO SCH (12:14)
[2020-08-10] MEDS: LATANOPROST 0.005% OPH SOLN 2.5 ML BOTTLE BOTH EYES SCH (21:05)
[2020-08-11 05:57] LABS: Basophils % 0.4 % (0.0-0.8); Eosinophils # 0.1 10*3/uL (0.0-0.87); Eosinophils % 1.4 % (0.00-10.9); Hematocrit 28.5 VOL% (35.7-47.0); Hemoglobin 9.1 GM/DL (12.0-16.0); Immature Granulocytes % 0.8 %; Immature Granulocytes Absolute 0.04 #; Lymphocytes # 1.2 10*3/uL (1.4-4.0); Lymphocytes % 24.5 % (21.3-54.2); Mean Corpuscular HGB Conc 31.9 GM/DL (32-36); Mean Platelet Volume 9.5 FL (9.6-12.0); Monocytes % 13.1 % (1.7-12.7); NRBC # 0.02 10*3/uL; Neutrophils % 59.8 % (38.7-73.9); Platelet Count 172 T/CUMM (130-400); Red Blood Count 2.74 MC/CUMM (3.8-5.5); Red Cell Distribution Width 16.2 % (9.3-17.3)
[2020-08-11] MEDS: PANTOPRAZOLE 40 MG TABLET PO SCH (06:12)
[2020-08-11 06:19] LABS: Calcium 9.1 MG/DL (8.5-10.1); Osmolality,Calculated 299.7 MOS/KG (273-304); Potassium 3.8 MMOL/L (3.5-5.1)
[2020-08-11] MEDS ORDERED: LEVOTHYROXINE 50 MCG TABLET PO SCH (06:30)
[2020-08-11] MEDS: INSULIN LISPRO 100 UNIT/ML SUBCUT SCH ×3 (08:58→16:43)
[2020-08-11] MEDS: HEPARIN 5,000 UNIT/1 ML VIAL SUBCUT SCH (08:58)
[2020-08-11] MEDS: carvediloL 12.5 MG TABLET PO SCH (08:59)
[2020-08-11] MEDS: LOSARTAN 50 MG TABLET PO SCH (08:59)
[2020-08-11] MEDS: SEVELAMER CARBONATE 800 MG TABLET PO SCH ×2 (08:59→11:16)
[2020-08-11] MEDS: ASPIRIN CHEW 81 MG TABLET PO SCH (08:59)
[2020-08-11] MEDS ORDERED: DOCUSATE SODIUM 100 MG CAPSULE PO SCH (09:00)
[2020-08-11 16:11] VITALS: BP 159/68
== END 2020-08-11 16:55 | disposition home or self-care (01) ==
LOC: N.ED 07:37 → N.EDINP 07:37 → N.TELEN 15:29
PROVIDERS: ADMIT Internal Medicine; ATTEND Internal Medicine

== ENCOUNTER 2020-10-12 06:01 | Observation (INO) ==
[2020-10-12] MEDS: PANTOPRAZOLE 40 MG TABLET PO SCH (08:41)
[2020-10-12] MEDS ORDERED: GLUCAGON 1 MG VIAL IM PRN (08:59)
[2020-10-12] MEDS ORDERED: DEXTROSE 50% 25 GM/50 ML VIAL IV PRN (08:59)
[2020-10-12] MEDS ORDERED: hydrALAZINE 20 MG/1 ML VIAL IV PRN (08:59)
[2020-10-12] MEDS ORDERED: ONDANSETRON 4 MG/2 ML VIAL IV PRN (08:59)
[2020-10-12 10:27] LABS: Basophils % 0.5 % (0.0-0.8); Eosinophils # 0.2 10*3/uL (0.0-0.87); Eosinophils % 2.2 % (0.00-10.9); Hematocrit 30.6 VOL% (35.7-47.0); Hemoglobin 9.9 GM/DL (12.0-16.0); Immature Granulocytes % 0.8 %; Immature Granulocytes Absolute 0.07 #; Lymphocytes # 1.4 10*3/uL (1.4-4.0); Lymphocytes % 16.8 % (21.3-54.2); Mean Corpuscular HGB Conc 32.4 GM/DL (32-36); Mean Corpuscular Volume 103.4 FL (87-102); Mean Platelet Volume 9.3 FL (9.6-12.0); Monocytes % 6.2 % (1.7-12.7); Neutrophils % 73.5 % (38.7-73.9); Platelet Count 339 T/CUMM (130-400); Red Blood Count 2.96 MC/CUMM (3.8-5.5); Red Cell Distribution Width 15.8 % (9.3-17.3); White Blood Count 8.3 T/CUMM (4-12)
[2020-10-12] MEDS ORDERED: KETOROLAC 30 MG/1 ML VIAL IV ONE (10:28)
[2020-10-12 10:44] LABS: Albumin 2.9 G/DL (3.4-5.0); Bilirubin,Total 0.5 MG/DL (0.2-1.0); Osmolality,Calculated 305.4 MOS/KG (273-304); Total Protein 7.6 G/DL (6.4-8.2)
[2020-10-12] MEDS: INSULIN LISPRO 100 UNIT/ML SUBCUT SCH ×3 (10:49→19:07)
[2020-10-12] MEDS ORDERED: POTASSIUM CHLORIDE 20 MEQ TABLET PO ONE (13:05)
[2020-10-12] MEDS ORDERED: ALBUTEROL 2.5 MG/3 ML NEB RESP TX PRN (13:35)
[2020-10-12] MEDS: TOBRAMYCIN RIGHT EYE SCH ×2 (14:37→21:29)
[2020-10-12] MEDS: DEXAMETHASONE RIGHT EYE SCH ×2 (14:37→21:29)
[2020-10-12] MEDS: SEVELAMER CARBONATE 800 MG TABLET PO SCH (16:18)
[2020-10-12] MEDS: HEPARIN 5,000 UNIT/1 ML VIAL SUBCUT SCH (16:19)
[2020-10-12] MEDS ORDERED: ENOXAPARIN 30 MG/0.3 ML SYRINGE SUBCUT SCH (21:00)
[2020-10-12] MEDS ORDERED: LATANOPROST 0.005% OPH SOLN 2.5 ML BOTTLE BOTH EYES SCH (21:00)
[2020-10-12] MEDS: TERBINAFINE 1% CREAM 12 GM TUBE TOP SCH (21:28)
[2020-10-12] MEDS: GABAPENTIN 100 MG CAPSULE PO SCH (21:29)
[2020-10-12] MEDS: carvediloL 12.5 MG TABLET PO SCH (21:29)
[2020-10-12] MEDS: TOLNAFTATE 1% TOP SCH (21:31)
[2020-10-13] MEDS: DEXAMETHASONE RIGHT EYE SCH ×3 (01:00→14:42)
[2020-10-13] MEDS: TOBRAMYCIN RIGHT EYE SCH ×3 (01:00→14:42)
[2020-10-13] MEDS: LEVOTHYROXINE 50 MCG TABLET PO SCH ×2 (04:38→05:35)
[2020-10-13] MEDS: HEPARIN 5,000 UNIT/1 ML VIAL SUBCUT SCH (04:38)
[2020-10-13 05:05] LABS: Basophils % 0.4 % (0.0-0.8); Eosinophils # 0.3 10*3/uL (0.0-0.87); Eosinophils % 3.1 % (0.00-10.9); Hematocrit 28.8 VOL% (35.7-47.0); Hemoglobin 9.1 GM/DL (12.0-16.0); Immature Granulocytes % 1.2 %; Lymphocytes # 1.4 10*3/uL (1.4-4.0); Lymphocytes % 17.5 % (21.3-54.2); Mean Corpuscular HGB Conc 31.6 GM/DL (32-36); Mean Corpuscular Volume 106.3 FL (87-102); Mean Platelet Volume 9.1 FL (9.6-12.0); Monocytes % 7.9 % (1.7-12.7); Neutrophils % 69.9 % (38.7-73.9); Platelet Count 329 T/CUMM (130-400); Red Blood Count 2.71 MC/CUMM (3.8-5.5); Red Cell Distribution Width 15.7 % (9.3-17.3); White Blood Count 8.1 T/CUMM (4-12)
[2020-10-13 05:22] LABS: Calcium 8.6 MG/DL (8.5-10.1); Osmolality,Calculated 309.5 MOS/KG (273-304); Potassium 2.7 MMOL/L (3.5-5.1)
[2020-10-13] MEDS ORDERED: POTASSIUM CHLORIDE 20 MEQ TABLET PO ONE (05:44)
[2020-10-13] MEDS ORDERED: ASPIRIN CHEW 81 MG TABLET PO SCH (09:00)
[2020-10-13] MEDS ORDERED: MULTIVITAMIN (BEROCCA) TABLET PO SCH (09:00)
[2020-10-13] MEDS: GABAPENTIN 100 MG CAPSULE PO SCH (09:28)
[2020-10-13] MEDS: carvediloL 12.5 MG TABLET PO SCH (09:28)
[2020-10-13] MEDS: SEVELAMER CARBONATE 800 MG TABLET PO SCH ×2 (09:28→13:20)
[2020-10-13] MEDS: PANTOPRAZOLE 40 MG TABLET PO SCH (09:29)
[2020-10-13] MEDS: TOLNAFTATE 1% TOP SCH (09:30)
[2020-10-13] MEDS: INSULIN LISPRO 100 UNIT/ML SUBCUT SCH ×2 (12:05→13:15)
[2020-10-13] MEDS: TERBINAFINE 1% CREAM 12 GM TUBE TOP SCH (12:06)
[2020-10-13 12:19] VITALS: BP 144/72
== END 2020-10-13 15:10 | disposition home or self-care (01) ==
LOC: N.5E → SUATTDRO 08:21
PROVIDERS: ADMIT Internal Medicine; ATTEND Internal Medicine

== ENCOUNTER 2021-02-28 08:13 | Inpatient (IN) ==
[2021-02-28] MEDS ORDERED: cefTRIAXone 1,000 MG in SODIUM CHLORIDE 0.9% 100 ML IV STA (09:03)
[2021-02-28] MEDS ORDERED: VANCOMYCIN INJ 1,000 MG in SODIUM CHLORIDE 0.9% 250 ML IV STA (09:03)
[2021-02-28] MEDS ORDERED: ONDANSETRON 4 MG/2 ML VIAL IV PRN (10:58)
[2021-02-28] MEDS ORDERED: GLUCAGON 1 MG VIAL IM PRN (10:58)
[2021-02-28] MEDS ORDERED: hydrALAZINE 20 MG/1 ML VIAL IV PRN (10:58)
[2021-02-28] MEDS ORDERED: DEXTROSE 50% 25 GM/50 ML VIAL IV PRN (10:58)
[2021-02-28] MEDS ORDERED: ACETAMINOPHEN 325 MG TABLET PO PRN (10:58)
[2021-02-28 11:11] LABS: Calcium 8.3 MG/DL (8.5-10.1); Osmolality,Calculated 310.1 MOS/KG (273-304)
[2021-02-28 11:30] LABS: HDL Cholesterol 25 MG/DL (40-60); Triglycerides 59 MG/DL (2-150); VLDL Cholesterol 11.8 MG/DL
[2021-02-28] MEDS ORDERED: POTASSIUM CHLORIDE 20 MEQ TABLET PO ONE (11:55)
[2021-02-28] MEDS ORDERED: VANCOMYCIN INJ 500 MG in SODIUM CHLORIDE 0.9% 100 ML IV PRN (11:56)
[2021-02-28] MEDS ORDERED: INSULIN LISPRO 100 UNIT/ML SUBCUT SCH (12:00)
[2021-02-28] MEDS ORDERED: diphenhydrAMINE CAP 50 MG CAPSULE PO PRN (12:06)
[2021-02-28] MEDS ORDERED: diphenhydrAMINE CAP 25 MG CAPSULE PO PRN (12:30)
[2021-02-28] MEDS: HEPARIN 5,000 UNIT/1 ML VIAL SUBCUT SCH (12:46)
[2021-02-28] MEDS ORDERED: VANCOMYCIN INJ 750 MG in SODIUM CHLORIDE 0.9% 250 ML IV ONE (13:00)
[2021-02-28] MEDS: POTASSIUM CHLORIDE 20 MEQ TABLET PO PRN ×3 (15:00→18:35)
[2021-02-28] MEDS: INSULIN LISPRO 100 UNIT/ML SUBCUT SCH ×2 (16:53→21:06)
[2021-02-28] MEDS: MORPHINE 2 MG/1 ML SYRINGE IV PRN (16:53)
[2021-03-01] MEDS: HEPARIN 5,000 UNIT/1 ML VIAL SUBCUT SCH ×2 (02:19→12:17)
[2021-03-01 06:19] LABS: Calcium 9.2 MG/DL (8.5-10.1); Osmolality,Calculated 309.4 MOS/KG (273-304); Potassium 4.2 MMOL/L (3.5-5.1)
[2021-03-01 06:26] LABS: Basophils % 0.4 % (0.0-0.8); Eosinophils # 0.1 10*3/uL (0.0-0.87); Eosinophils % 1.8 % (0.00-10.9); Hematocrit 27.6 VOL% (35.7-47.0); Hemoglobin 8.5 GM/DL (12.0-16.0); Immature Granulocytes Absolute 0.15 #; Lymphocytes # 0.7 10*3/uL (1.4-4.0); Lymphocytes % 9.4 % (21.3-54.2); Mean Corpuscular HGB Conc 30.8 GM/DL (32-36); Mean Corpuscular Volume 107.4 FL (87-102); Mean Platelet Volume 9.9 FL (9.6-12.0); Monocytes % 6.8 % (1.7-12.7); Neutrophils % 79.6 % (38.7-73.9); Platelet Count 185 T/CUMM (130-400); Red Blood Count 2.57 MC/CUMM (3.8-5.5); Red Cell Distribution Width 15.8 % (9.3-17.3); White Blood Count 7.7 T/CUMM (4-12)
[2021-03-01] MEDS: INSULIN LISPRO 100 UNIT/ML SUBCUT SCH ×4 (08:35→20:03)
[2021-03-01] MEDS ORDERED: CLINDAMYCIN INJ 900 MG/50 ML PREMIX IV ONE (09:21)
[2021-03-01] MEDS: cefTRIAXone 1,000 MG in SODIUM CHLORIDE 0.9% 100 ML IV SCH (12:17)
[2021-03-01] MEDS: PANTOPRAZOLE 40 MG TABLET PO SCH (14:21)
[2021-03-01] MEDS: carvediloL 12.5 MG TABLET PO SCH (16:33)
[2021-03-01] MEDS: SEVELAMER CARBONATE 800 MG TABLET PO SCH (16:33)
[2021-03-01] MEDS: DOCUSATE SODIUM 100 MG CAPSULE PO SCH (20:03)
[2021-03-01] MEDS: LATANOPROST 0.005% OPH SOLN 2.5 ML BOTTLE BOTH EYES SCH (20:03)
[2021-03-01] MEDS: GABAPENTIN 100 MG CAPSULE PO SCH (20:03)
[2021-03-01] MEDS: MORPHINE 2 MG/1 ML SYRINGE IV PRN (20:04)
[2021-03-02] MEDS: HEPARIN 5,000 UNIT/1 ML VIAL SUBCUT SCH ×3 (01:06→22:40)
[2021-03-02 05:18] LABS: Basophils % 0.4 % (0.0-0.8); Eosinophils # 0.1 10*3/uL (0.0-0.87); Eosinophils % 1.8 % (0.00-10.9); Hematocrit 27.3 VOL% (35.7-47.0); Hemoglobin 8.2 GM/DL (12.0-16.0); Immature Granulocytes % 3.1 %; Immature Granulocytes Absolute 0.23 #; Lymphocytes # 0.9 10*3/uL (1.4-4.0); Lymphocytes % 11.7 % (21.3-54.2); Mean Corpuscular Volume 105.8 FL (87-102); Mean Platelet Volume 9.9 FL (9.6-12.0); Monocytes % 7.5 % (1.7-12.7); NRBC # 0.02 10*3/uL; Neutrophils % 75.5 % (38.7-73.9); Platelet Count 174 T/CUMM (130-400); Red Blood Count 2.58 MC/CUMM (3.8-5.5); Red Cell Distribution Width 15.8 % (9.3-17.3); White Blood Count 7.4 T/CUMM (4-12)
[2021-03-02 05:39] LABS: Calcium 8.8 MG/DL (8.5-10.1); Osmolality,Calculated 313.4 MOS/KG (273-304); Potassium 4.3 MMOL/L (3.5-5.1)
[2021-03-02] MEDS ORDERED: SODIUM CHLORIDE 0.9% 250 ML IV ONE (06:47)
[2021-03-02] MEDS ORDERED: KETAMINE 500 MG/10 ML VIAL ONE (06:47)
[2021-03-02] MEDS ORDERED: LIDOCAINE 2% 5 ML VIAL ONE (06:47)
[2021-03-02] MEDS ORDERED: fentaNYL 100 MCG/2 ML VIAL ONE (06:47)
[2021-03-02] MEDS ORDERED: propofoL 200 MG/20 ML VIAL IV ONE (06:47)
[2021-03-02] MEDS ORDERED: MIDAZOLAM 2 MG/2 ML VIAL ONE ×2 (06:47)
[2021-03-02] MEDS: PANTOPRAZOLE 40 MG TABLET PO SCH (06:53)
[2021-03-02] MEDS: carvediloL 12.5 MG TABLET PO SCH ×2 (06:53→18:01)
[2021-03-02] MEDS ORDERED: BUPIVACAINE MPF 0.25% 30 ML VIAL ONE (06:55)
[2021-03-02] MEDS ORDERED: LIDOCAINE 1%/EPI INJ 20 ML VIAL ONE (06:55)
[2021-03-02] MEDS ORDERED: CLINDAMYCIN INJ 900 MG/50 ML PREMIX IV ONE (07:00)
[2021-03-02] MEDS: LEVOTHYROXINE 50 MCG TABLET PO SCH (07:52)
[2021-03-02] MEDS: INSULIN LISPRO 100 UNIT/ML SUBCUT SCH ×4 (07:52→22:47)
[2021-03-02] MEDS: SEVELAMER CARBONATE 800 MG TABLET PO SCH ×3 (08:00→18:01)
[2021-03-02] MEDS ORDERED: ONDANSETRON 4 MG/2 ML VIAL ONE (08:21)
[2021-03-02] MEDS: DOCUSATE SODIUM 100 MG CAPSULE PO SCH ×2 (09:00→22:39)
[2021-03-02] MEDS: GABAPENTIN 100 MG CAPSULE PO SCH ×2 (09:00→22:39)
[2021-03-02] MEDS: cefTRIAXone 1,000 MG in SODIUM CHLORIDE 0.9% 100 ML IV SCH (12:23)
[2021-03-02] MEDS ORDERED: DEXTROSE 50% 25 GM/50 ML VIAL IV PRN (14:15)
[2021-03-02] MEDS ORDERED: GLUCAGON 1 MG VIAL IM PRN (14:15)
[2021-03-02] MEDS ORDERED: VANCOMYCIN INJ 500 MG in SODIUM CHLORIDE 0.9% 100 ML IV ONE (17:00)
[2021-03-02 17:14] LABS: Hepatitis B Core IgM Quant 0.11 Index; Hepatitis B Surface Ag Quant < 0.10 Index; Hepatitis B Surface Ag Result Non-Reactive (NonReactive); Hepatitis C Virus Ab Quant 0.44 Index; Hepatitis C Virus Ab Result Non-Reactive (NonReactive)
[2021-03-02] MEDS: MULTIVITAMIN (BEROCCA) TABLET PO SCH (18:00)
[2021-03-02] MEDS: ASPIRIN EC 81 MG TABLET PO SCH (18:00)
[2021-03-02] MEDS: LOSARTAN 50 MG TABLET PO SCH (18:01)
[2021-03-02] MEDS: LATANOPROST 0.005% OPH SOLN 2.5 ML BOTTLE BOTH EYES SCH (22:40)
[2021-03-03] MEDS: LEVOTHYROXINE 50 MCG TABLET PO SCH (05:57)
[2021-03-03] MEDS: PANTOPRAZOLE 40 MG TABLET PO SCH (05:57)
[2021-03-03 06:36] LABS: Basophils % 0.4 % (0.0-0.8); Eosinophils # 0.1 10*3/uL (0.0-0.87); Eosinophils % 2.1 % (0.00-10.9); Hematocrit 25.7 VOL% (35.7-47.0); Hemoglobin 7.8 GM/DL (12.0-16.0); Immature Granulocytes % 3.7 %; Lymphocytes # 0.5 10*3/uL (1.4-4.0); Lymphocytes % 9.5 % (21.3-54.2); Mean Corpuscular HGB Conc 30.4 GM/DL (32-36); Mean Platelet Volume 9.7 FL (9.6-12.0); NRBC # 0.03 10*3/uL; Neutrophils % 75.3 % (38.7-73.9); Platelet Count 185 T/CUMM (130-400); Red Blood Count 2.47 MC/CUMM (3.8-5.5); Red Cell Distribution Width 15.9 % (9.3-17.3); White Blood Count 5.4 T/CUMM (4-12)
[2021-03-03 07:04] LABS: Calcium 8.7 MG/DL (8.5-10.1); Osmolality,Calculated 287.4 MOS/KG (273-304); Potassium 3.4 MMOL/L (3.5-5.1)
[2021-03-03] MEDS: INSULIN LISPRO 100 UNIT/ML SUBCUT SCH ×3 (07:23→16:18)
[2021-03-03] MEDS: MORPHINE 2 MG/1 ML SYRINGE IV PRN (07:52)
[2021-03-03] MEDS: carvediloL 12.5 MG TABLET PO SCH ×2 (09:41→17:25)
[2021-03-03] MEDS: ASPIRIN EC 81 MG TABLET PO SCH (09:42)
[2021-03-03] MEDS: GABAPENTIN 100 MG CAPSULE PO SCH ×2 (09:42→20:38)
[2021-03-03] MEDS: MULTIVITAMIN (BEROCCA) TABLET PO SCH (09:42)
[2021-03-03] MEDS: DOCUSATE SODIUM 100 MG CAPSULE PO SCH ×2 (09:42→20:38)
[2021-03-03] MEDS: LOSARTAN 50 MG TABLET PO SCH (09:42)
[2021-03-03] MEDS: SEVELAMER CARBONATE 800 MG TABLET PO SCH ×3 (09:42→17:25)
[2021-03-03] MEDS: cefTRIAXone 1,000 MG in SODIUM CHLORIDE 0.9% 100 ML IV SCH (11:41)
[2021-03-03] MEDS: HEPARIN 5,000 UNIT/1 ML VIAL SUBCUT SCH (12:00)
[2021-03-03] MEDS: LATANOPROST 0.005% OPH SOLN 2.5 ML BOTTLE BOTH EYES SCH (20:38)
[2021-03-04 05:52] LABS: Hematocrit 24.5 VOL% (35.7-47.0); Hemoglobin 7.5 GM/DL (12.0-16.0)
[2021-03-04] MEDS: INSULIN LISPRO 100 UNIT/ML SUBCUT SCH ×3 (06:14→12:56)
[2021-03-04] MEDS: PANTOPRAZOLE 40 MG TABLET PO SCH (07:37)
[2021-03-04] MEDS: LEVOTHYROXINE 50 MCG TABLET PO SCH (07:37)
[2021-03-04 07:44] VITALS: BP 138/83
[2021-03-04] MEDS: SEVELAMER CARBONATE 800 MG TABLET PO SCH ×2 (09:52→12:57)
[2021-03-04] MEDS: carvediloL 12.5 MG TABLET PO SCH (09:52)
[2021-03-04] MEDS: MULTIVITAMIN (BEROCCA) TABLET PO SCH (09:52)
[2021-03-04] MEDS: DOCUSATE SODIUM 100 MG CAPSULE PO SCH (09:53)
[2021-03-04] MEDS: LOSARTAN 50 MG TABLET PO SCH (09:53)
[2021-03-04] MEDS: ASPIRIN EC 81 MG TABLET PO SCH (09:53)
[2021-03-04] MEDS: GABAPENTIN 100 MG CAPSULE PO SCH (09:53)
[2021-03-04] MEDS: cefTRIAXone 1,000 MG in SODIUM CHLORIDE 0.9% 100 ML IV SCH (12:56)
== END 2021-03-04 10:55 | disposition home or self-care (01) | DRG 264 ==
LOC: EDUNIT# → N.ED 08:13 → N.3E 11:25 → SUATTDRO 11:48 → N.3E 11:48
PROVIDERS: ADMIT Phlebology; ATTEND Internal Medicine

== ENCOUNTER 2021-03-23 22:41 | Inpatient (IN) ==
[2021-03-23] MEDS ORDERED: HYDROmorphone 2 MG/1 ML VIAL IV STA (23:24)
[2021-03-23] MEDS ORDERED: ONDANSETRON 4 MG/2 ML VIAL IV ONE (23:24)
[2021-03-23 23:35] LABS: Basophils % 0.3 % (0.0-0.8); Eosinophils # 0.2 10*3/uL (0.0-0.87); Eosinophils % 2.2 % (0.00-10.9); Hematocrit 28.9 VOL% (35.7-47.0); Hemoglobin 8.4 GM/DL (12.0-16.0); Immature Granulocytes % 1.2 %; Immature Granulocytes Absolute 0.08 #; Lymphocytes # 1.2 10*3/uL (1.4-4.0); Lymphocytes % 17.7 % (21.3-54.2); Mean Corpuscular HGB Conc 29.1 GM/DL (32-36); Mean Corpuscular Volume 110.7 FL (87-102); Mean Platelet Volume 9.8 FL (9.6-12.0); Monocytes % 8.2 % (1.7-12.7); Neutrophils % 70.4 % (38.7-73.9); Platelet Count 223 T/CUMM (130-400); Red Blood Count 2.61 MC/CUMM (3.8-5.5); Red Cell Distribution Width 16.7 % (9.3-17.3); White Blood Count 6.9 T/CUMM (4-12)
[2021-03-23] MEDS ORDERED: ASPIRIN 325 MG TABLET PO STA (23:51)
[2021-03-23] MEDS ORDERED: NITROGLYCERIN SL 0.4 MG TABLET SL STA (23:51)
[2021-03-23 23:53] LABS: Albumin 2.7 G/DL (3.4-5.0); Bilirubin,Total 0.5 MG/DL (0.20-1.00); Calcium 8.9 MG/DL (8.5-10.1); Osmolality,Calculated 290.7 MOS/KG (273-304); Potassium 4.5 MMOL/L (3.5-5.1); Total Protein 7.7 G/DL (6.4-8.2)
[2021-03-24] MEDS ORDERED: DEXTROSE 50% 25 GM/50 ML SYRINGE IV ONE (00:51)
[2021-03-24] MEDS ORDERED: ROCURONIUM 100 MG/10 ML VIAL IV ONE (01:09)
[2021-03-24] MEDS ORDERED: ETOMIDATE 20 MG/10 ML VIAL IV ONE (01:09)
[2021-03-24] MEDS ORDERED: ENOXAPARIN 100 MG/ML SYRINGE SUBCUT STA (01:11)
[2021-03-24] MEDS ORDERED: LABETALOL 20 MG/4 ML SYRINGE IV STA (01:41)
[2021-03-24] MEDS ORDERED: LABETALOL 20 MG/4 ML SYRINGE IV ONE (01:41)
[2021-03-24] MEDS ORDERED: PIPERACILLIN/TAZOBACTAM 2,250 MG in SODIUM CHLORIDE 0.9% 100 ML IV STA (02:42)
[2021-03-24 03:15] LABS: ABG Base Excess 3.5 MMOL/L (-2.5-2.5); ABG HCO3 27.6 MMOL/L (20-26); ABG PH 7.404 (7.35-7.45); ABG TCO2 26.9 MMOL/L (23-27)
[2021-03-24 04:01] LABS: Albumin 2.3 G/DL (3.4-5.0); Bilirubin,Total 0.7 MG/DL (0.20-1.00); Calcium 8.9 MG/DL (8.5-10.1); Osmolality,Calculated 291.7 MOS/KG (273-304); Potassium 4.6 MMOL/L (3.5-5.1); Total Protein 6.8 G/DL (6.4-8.2)
[2021-03-24] MEDS ORDERED: ALBUTEROL 2.5 MG/3 ML NEB RESP TX PRN (04:26)
[2021-03-24] MEDS ORDERED: ONDANSETRON 4 MG/2 ML VIAL IV PRN (04:26)
[2021-03-24 04:43] VITALS: BP 149/71
[2021-03-24] MEDS: PANTOPRAZOLE 40 MG VIAL IV SCH (05:53)
[2021-03-24] MEDS ORDERED: GLUCAGON 1 MG VIAL IM PRN (06:11)
[2021-03-24] MEDS ORDERED: DEXTROSE 50% 25 GM/50 ML VIAL IV PRN (06:11)
[2021-03-24] MEDS: INSULIN LISPRO 100 UNIT/ML SUBCUT SCH ×2 (11:49→17:49)
[2021-03-24] MEDS: HEPARIN 5,000 UNIT/1 ML VIAL SUBCUT SCH ×2 (13:20→18:17)
[2021-03-24] MEDS: PIPERACILLIN/TAZOBACTAM 3,375 MG in SODIUM CHLORIDE 0.9% 100 ML IV SCH (16:20)
[2021-03-24] MEDS: SEVELAMER CARBONATE 800 MG TABLET PO SCH (18:17)
[2021-03-24] MEDS: GABAPENTIN 100 MG CAPSULE PO SCH (22:10)
[2021-03-25] MEDS: INSULIN LISPRO 100 UNIT/ML SUBCUT SCH ×4 (03:20→17:28)
[2021-03-25 03:47] LABS: ABG Base Excess 3.7 MMOL/L (-2.5-2.5); ABG HCO3 27.7 MMOL/L (20-26); ABG Oxygen Saturation 95.5 % (95-100); ABG PCO2 44.7 MM HG (35-48); ABG PH 7.415 (7.35-7.45); ABG PO2 80.5 MM HG (80-95); ABG TCO2 26.7 MMOL/L (23-27)
[2021-03-25 03:52] LABS: Basophils % 0.3 % (0.0-0.8); Eosinophils # 0.1 10*3/uL (0.0-0.87); Hematocrit 25.2 VOL% (35.7-47.0); Hemoglobin 7.3 GM/DL (12.0-16.0); Immature Granulocytes % 0.9 %; Immature Granulocytes Absolute 0.06 #; Lymphocytes # 0.9 10*3/uL (1.4-4.0); Lymphocytes % 13.4 % (21.3-54.2); Mean Corpuscular Volume 110.5 FL (87-102); Mean Platelet Volume 9.6 FL (9.6-12.0); Monocytes % 8.4 % (1.7-12.7); Platelet Count 192 T/CUMM (130-400); Red Blood Count 2.28 MC/CUMM (3.8-5.5); Red Cell Distribution Width 16.7 % (9.3-17.3); White Blood Count 6.9 T/CUMM (4-12)
[2021-03-25 04:06] LABS: Albumin 2.3 G/DL (3.4-5.0); Bilirubin,Total 0.8 MG/DL (0.20-1.00); Calcium 8.8 MG/DL (8.5-10.1); Osmolality,Calculated 279.8 MOS/KG (273-304); Potassium 5.1 MMOL/L (3.5-5.1); Total Protein 6.6 G/DL (6.4-8.2)
[2021-03-25 04:11] LABS: Hypochromasia 1+; Ovalocytes Few
[2021-03-25 04:12] LABS: Tear Drop Cells Slight
[2021-03-25 04:14] LABS: Anisocytosis 1+; Microcytosis 1+; Platelet Estimate Adequate
[2021-03-25 04:29] LABS: Risk Ratio 2.04
[2021-03-25] MEDS: HEPARIN 5,000 UNIT/1 ML VIAL SUBCUT SCH ×3 (05:39→18:02)
[2021-03-25] MEDS: PIPERACILLIN/TAZOBACTAM 3,375 MG in SODIUM CHLORIDE 0.9% 100 ML IV SCH (05:40)
[2021-03-25] MEDS: PANTOPRAZOLE 40 MG VIAL IV SCH (06:10)
[2021-03-25] MEDS ORDERED: ENOXAPARIN 30 MG/0.3 ML SYRINGE SUBCUT SCH (09:00)
[2021-03-25] MEDS: GABAPENTIN 100 MG CAPSULE PO SCH ×2 (09:50→21:36)
[2021-03-25] MEDS: SEVELAMER CARBONATE 800 MG TABLET PO SCH ×3 (09:50→17:56)
[2021-03-25] MEDS: ASPIRIN CHEW 81 MG TABLET PO SCH (09:50)
[2021-03-26] MEDS: INSULIN LISPRO 100 UNIT/ML SUBCUT SCH ×4 (00:38→18:23)
[2021-03-26] MEDS: HEPARIN 5,000 UNIT/1 ML VIAL SUBCUT SCH ×3 (03:04→19:10)
[2021-03-26] MEDS: PANTOPRAZOLE 40 MG VIAL IV SCH (04:21)
[2021-03-26 04:33] LABS: Basophils % 0.4 % (0.0-0.8); Eosinophils # 0.1 10*3/uL (0.0-0.87); Eosinophils % 0.9 % (0.00-10.9); Hematocrit 25.6 VOL% (35.7-47.0); Hemoglobin 7.3 GM/DL (12.0-16.0); Immature Granulocytes Absolute 0.08 #; Lymphocytes # 1.2 10*3/uL (1.4-4.0); Lymphocytes % 15.1 % (21.3-54.2); Mean Corpuscular HGB Conc 28.5 GM/DL (32-36); Mean Corpuscular Volume 112.8 FL (87-102); Mean Platelet Volume 9.9 FL (9.6-12.0); Monocytes % 8.4 % (1.7-12.7); NRBC # 0.02 10*3/uL; Neutrophils % 74.2 % (38.7-73.9); Platelet Count 196 T/CUMM (130-400); Red Blood Count 2.27 MC/CUMM (3.8-5.5); Red Cell Distribution Width 16.6 % (9.3-17.3); White Blood Count 8.1 T/CUMM (4-12)
[2021-03-26 04:56] LABS: Hypochromasia 2+; Microcytosis 1+; Platelet Estimate Adequate
[2021-03-26 05:17] LABS: % Iron Saturation 95.5 % (18-50); Albumin 2.6 G/DL (3.4-5.0); Bilirubin,Direct 0.35 MG/DL (0.0-0.20); Bilirubin,Indirect 0.5 MG/DL (0.0-1.0); Bilirubin,Total 0.8 MG/DL (0.20-1.00); Calcium 8.9 MG/DL (8.5-10.1); Ferritin 8910.1 ng/mL (8-252); Osmolality,Calculated 279.1 MOS/KG (273-304); Potassium 4.9 MMOL/L (3.5-5.1); Thyroid Stimulating Hormone 3.7 uIU/ml (0.358-3.74); Total Protein 7.1 G/DL (6.4-8.2)
[2021-03-26] MEDS ORDERED: ACETAMINOPHEN 500 MG TABLET PO PRN (08:16)
[2021-03-26] MEDS ORDERED: LIDOCAINE 5% PATCH TRANSDERM SCH (09:30)
[2021-03-26] MEDS: SEVELAMER CARBONATE 800 MG TABLET PO SCH ×3 (09:57→17:31)
[2021-03-26] MEDS: ASPIRIN CHEW 81 MG TABLET PO SCH (09:57)
[2021-03-26] MEDS: traMADol 50 MG TABLET PO PRN ×2 (09:57→16:23)
[2021-03-26] MEDS: GABAPENTIN 100 MG CAPSULE PO SCH (09:57)
[2021-03-26] MEDS ORDERED: LOSARTAN 50 MG TABLET PO SCH (15:59)
== END 2021-03-26 19:30 | disposition home or self-care (01) | DRG 308 ==
LOC: EDBD → EDUNIT# → N.ED 22:41 → SUATTDRO 03-24 03:03 → N.EDINP 03-24 03:03 → N.ICU 03-24 05:18
PROVIDERS: ADMIT Family Medicine; ATTEND Internal Medicine

== ENCOUNTER 2021-04-24 07:34 | Observation (INO) ==
[2021-04-24] MEDS ORDERED: GLUCAGON 1 MG VIAL IM PRN (10:53)
[2021-04-24] MEDS ORDERED: DEXTROSE 50% 25 GM/50 ML VIAL IV PRN (10:53)
[2021-04-24] MEDS ORDERED: PANTOPRAZOLE 40 MG VIAL IV SCH (10:54)
[2021-04-24] MEDS ORDERED: ONDANSETRON 4 MG/2 ML VIAL IV PRN (10:54)
[2021-04-24] MEDS ORDERED: ACETAMINOPHEN 325 MG TABLET PO PRN (10:54)
[2021-04-24] MEDS ORDERED: SODIUM CHLORIDE 0.9% 1,000 ML IV PRN (11:15)
[2021-04-24 12:58] LABS: Basophils % 0.4 % (0.0-0.8); Eosinophils # 0.1 10*3/uL (0.0-0.87); Eosinophils % 2.4 % (0.00-10.9); Hematocrit 24.9 VOL% (35.7-47.0); Hemoglobin 7.3 GM/DL (12.0-16.0); Immature Granulocytes % 0.7 %; Immature Granulocytes Absolute 0.04 #; Lymphocytes % 18.8 % (21.3-54.2); Mean Corpuscular HGB Conc 29.3 GM/DL (32-36); Mean Corpuscular Volume 111.2 FL (87-102); Mean Platelet Volume 9.8 FL (9.6-12.0); Monocytes % 5.8 % (1.7-12.7); Neutrophils % 71.9 % (38.7-73.9); Platelet Count 207 T/CUMM (130-400); Red Blood Count 2.24 MC/CUMM (3.8-5.5); Red Cell Distribution Width 16.2 % (9.3-17.3); White Blood Count 5.4 T/CUMM (4-12)
[2021-04-24 13:12] LABS: INR 1.1; PT Patient Result 12.4 SECS (10.5-12.0)
[2021-04-24 13:23] LABS: Albumin 2.9 G/DL (3.4-5.0); Bilirubin,Total 0.5 MG/DL (0.20-1.00); Calcium 9.4 MG/DL (8.5-10.1); Osmolality,Calculated 307.5 MOS/KG (273-304); Potassium 3.2 MMOL/L (3.5-5.1); Total Protein 7.7 G/DL (6.4-8.2)
[2021-04-24] MEDS: PANTOPRAZOLE 40 MG VIAL IV SCH ×2 (14:56→21:04)
[2021-04-24 21:21] LABS: Hematocrit 31.2 VOL% (35.7-47.0)
[2021-04-24 21:26] LABS: Hemoglobin 9.8 GM/DL (12.0-16.0)
[2021-04-25 01:01] LABS: Hematocrit 28.3 VOL% (35.7-47.0)
[2021-04-25 05:57] LABS: Basophils % 0.6 % (0.0-0.8); Eosinophils # 0.1 10*3/uL (0.0-0.87); Eosinophils % 2.3 % (0.00-10.9); Hematocrit 28.8 VOL% (35.7-47.0); Hemoglobin 8.9 GM/DL (12.0-16.0); Immature Granulocytes % 0.8 %; Immature Granulocytes Absolute 0.04 #; Lymphocytes # 0.6 10*3/uL (1.4-4.0); Lymphocytes % 12.2 % (21.3-54.2); Mean Corpuscular HGB Conc 30.9 GM/DL (32-36); Mean Corpuscular Volume 104.3 FL (87-102); Mean Platelet Volume 9.8 FL (9.6-12.0); Monocytes % 6.9 % (1.7-12.7); Neutrophils % 77.2 % (38.7-73.9); Platelet Count 180 T/CUMM (130-400); Red Blood Count 2.76 MC/CUMM (3.8-5.5); Red Cell Distribution Width 17.6 % (9.3-17.3); White Blood Count 4.8 T/CUMM (4-12)
[2021-04-25 06:07] LABS: INR 1.1; PT Patient Result 12.5 SECS (10.5-12.0)
[2021-04-25 06:47] LABS: Albumin 2.6 G/DL (3.4-5.0); Bilirubin,Total 1.5 MG/DL (0.20-1.00); Calcium 9.7 MG/DL (8.5-10.1); Osmolality,Calculated 288.8 MOS/KG (273-304); Potassium 3.2 MMOL/L (3.5-5.1); Total Protein 7.3 G/DL (6.4-8.2)
[2021-04-25] MEDS: SEVELAMER CARBONATE 800 MG TABLET PO SCH ×2 (07:58→12:28)
[2021-04-25] MEDS ORDERED: LOSARTAN 50 MG TABLET PO SCH (09:00)
[2021-04-25] MEDS: PANTOPRAZOLE 40 MG VIAL IV SCH (09:15)
[2021-04-25 12:48] VITALS: BP 143/75
== END 2021-04-25 13:52 | disposition home or self-care (01) ==
LOC: N.2E → SUATTDRO 09:57
PROVIDERS: ADMIT Internal Medicine; ATTEND Internal Medicine

== ENCOUNTER 2021-05-23 19:22 | Inpatient (IN) ==
[2021-05-23] MEDS ORDERED: hydrALAZINE 20 MG/1 ML VIAL IV PRN (23:36)
[2021-05-23] MEDS ORDERED: GLUCAGON 1 MG VIAL IM PRN (23:36)
[2021-05-23] MEDS ORDERED: SIMETHICONE CHEW 125 MG TABLET PO PRN (23:36)
[2021-05-23] MEDS ORDERED: ONDANSETRON 4 MG/2 ML VIAL IV PRN (23:36)
[2021-05-23] MEDS ORDERED: ACETAMINOPHEN 325 MG TABLET PO PRN (23:36)
[2021-05-24] MEDS ORDERED: MORPHINE 2 MG/1 ML SYRINGE IV ONE (00:09)
[2021-05-24 00:36] LABS: Basophils % 0.1 % (0.0-0.8); Hemoglobin 8.1 GM/DL (12.0-16.0); Immature Granulocytes % 0.7 %; Immature Granulocytes Absolute 0.07 #; Lymphocytes # 0.3 10*3/uL (1.4-4.0); Mean Corpuscular HGB Conc 31.2 GM/DL (32-36); Mean Corpuscular Volume 107.9 FL (87-102); Mean Platelet Volume 9.9 FL (9.6-12.0); Monocytes % 2.2 % (1.7-12.7); Platelet Count 163 T/CUMM (130-400); Red Blood Count 2.41 MC/CUMM (3.8-5.5); Red Cell Distribution Width 16.5 % (9.3-17.3); White Blood Count 10.3 T/CUMM (4-12)
[2021-05-24 00:44] LABS: Band Neutrophils 1 % (0-10); Eosinophils 1 % (0-10); Hypochromasia 2+; Lymphocytes 2 % (20-55); Platelet Estimate Adequate; Segmented Neutrophils 94 % (50-85); Total Cells Counted 100
[2021-05-24] MEDS ORDERED: SODIUM CHLORIDE 0.9% 1,000 ML IV PRN ×2 (00:46→05:03)
[2021-05-24 00:48] LABS: Albumin 2.8 G/DL (3.4-5.0); Calcium 8.4 MG/DL (8.5-10.1); Potassium 2.9 MMOL/L (3.5-5.1); Total Protein 7.4 G/DL (6.4-8.2)
[2021-05-24 00:55] LABS: Thyroid Stimulating Hormone 2.13 uIU/ml (0.358-3.74)
[2021-05-24] MEDS ORDERED: SODIUM BICARBONATE 50 MEQ/50 ML VIAL IV ONE ×2 (01:42→08:16)
[2021-05-24] MEDS ORDERED: MORPHINE 2 MG/1 ML SYRINGE IV PRN (01:56)
[2021-05-24] MEDS ORDERED: POTASSIUM CHLORIDE 20 MEQ TABLET PO ONE (01:57)
[2021-05-24] MEDS ORDERED: NALOXONE 0.4 MG/ML VIAL ONE ×2 (03:47→09:22)
[2021-05-24 04:10] LABS: ABG Base Excess -15.5 MMOL/L (-2.5-2.5); ABG HCO3 9.9 MMOL/L (20-26); ABG Oxygen Saturation 98.9 % (95-100); ABG PCO2 22.2 MM HG (35-48); ABG PH 7.268 (7.35-7.45); ABG PO2 250.7 MM HG (80-95); ABG TCO2 10.6 MMOL/L (23-27)
[2021-05-24 04:26] LABS: Immature Granulocytes Absolute 0.18 #; Lymphocytes # 0.5 10*3/uL (1.4-4.0); Lymphocytes % 4.9 % (21.3-54.2); Mean Corpuscular HGB Conc 29.3 GM/DL (32-36); Mean Corpuscular Volume 116.3 FL (87-102); Mean Platelet Volume 10.1 FL (9.6-12.0); Monocytes % 2.5 % (1.7-12.7); Neutrophils % 90.6 % (38.7-73.9); Platelet Count 80 T/CUMM (130-400); Red Blood Count 1.29 MC/CUMM (3.8-5.5); White Blood Count 9.1 T/CUMM (4-12)
[2021-05-24 04:35] LABS: Hemoglobin 4.4 GM/DL (12.0-16.0)
[2021-05-24 04:46] LABS: Band Neutrophils 2 % (0-10); Lymphocytes 6 % (20-55); Metamyelocytes 1 %; Segmented Neutrophils 88 % (50-85); Total Cells Counted 100
[2021-05-24 04:47] LABS: Hypochromasia 1+; Platelet Estimate Decreased
[2021-05-24 05:11] LABS: Alanine Aminotransferase < 9 U/L (13-56); Albumin 1.2 G/DL (3.4-5.0); Alkaline Phosphatase 88 U/L (45-117); Aspartate Amino Transferase 8 U/L (0-37); Blood Urea Nitrogen 104 MG/DL (7-18); Carbon Dioxide 7 MMOL/L (21-32); Estimated Glom Filtration Rate 4 ML/MIN; Glucose 152 MG/DL (74-106); Osmolality,Calculated 321.8 MOS/KG (273-304); Potassium 2.6 MMOL/L (3.5-5.1); Sodium 144 MMOL/L (136-145); Total Protein 3.9 G/DL (6.4-8.2)
[2021-05-24 05:14] LABS: Calcium 5.8 MG/DL (8.5-10.1)
[2021-05-24] MEDS: INSULIN REGULAR 100 UNIT/ML SUBCUT SCH ×4 (07:16→20:54)
[2021-05-24] MEDS ORDERED: INSULIN REGULAR 100 UNIT/ML SUBCUT SCH (07:30)
[2021-05-24 07:42] LABS: Hematocrit 26.4 VOL% (35.7-47.0); Hemoglobin 8.3 GM/DL (12.0-16.0)
[2021-05-24] MEDS: DOCUSATE SODIUM 100 MG CAPSULE PO SCH ×2 (08:35→20:54)
[2021-05-24] MEDS: NOREPINEPHRINE 8 MG in SODIUM CHLORIDE 0.9% 242 ML IV PRN (09:00)
[2021-05-24] MEDS ORDERED: PANTOPRAZOLE 40 MG TABLET PO SCH (09:00)
[2021-05-24] MEDS ORDERED: NOREPINEPHRINE 4 MG/4 ML VIAL IV ONE (09:38)
[2021-05-24] MEDS ORDERED: NALOXONE 0.4 MG/ML VIAL IV ONE ×2 (09:50→15:35)
[2021-05-24 10:22] LABS: Basophils % 0.1 % (0.0-0.8); Immature Granulocytes % 5.3 %; Immature Granulocytes Absolute 1.07 #; Lymphocytes # 0.8 10*3/uL (1.4-4.0); Lymphocytes % 3.7 % (21.3-54.2); Mean Corpuscular HGB Conc 30.8 GM/DL (32-36); Mean Corpuscular Volume 107.9 FL (87-102); Mean Platelet Volume 10.3 FL (9.6-12.0); Monocytes % 3.5 % (1.7-12.7); Neutrophils % 87.4 % (38.7-73.9); Platelet Count 134 T/CUMM (130-400); Red Blood Count 2.41 MC/CUMM (3.8-5.5); Red Cell Distribution Width 16.8 % (9.3-17.3); White Blood Count 20.4 T/CUMM (4-12)
[2021-05-24 10:40] LABS: Albumin 2.4 G/DL (3.4-5.0); Bilirubin,Total 0.6 MG/DL (0.20-1.00); Calcium 8.3 MG/DL (8.5-10.1); Osmolality,Calculated 323.3 MOS/KG (273-304); Total Protein 6.7 G/DL (6.4-8.2)
[2021-05-24 10:44] LABS: Band Neutrophils 10 % (0-10); Lymphocytes 6 % (20-55); Metamyelocytes 2 %; Myelocytes 1 %; Segmented Neutrophils 74 % (50-85); Total Cells Counted 100
[2021-05-24 10:45] LABS: Ovalocytes Few; Platelet Estimate Adequate; Polychromasia Slight
[2021-05-24 10:46] LABS: Macrocytosis 2+; Tear Drop Cells Slight
[2021-05-24] MEDS: HALOPERIDOL 5 MG/ML AMP IM PRN ×2 (11:06→12:52)
[2021-05-24] MEDS: GABAPENTIN 100 MG CAPSULE PO SCH ×2 (13:28→21:22)
[2021-05-24] MEDS: DEXTROSE 50% 25 GM/50 ML VIAL IV PRN ×2 (15:44→21:50)
[2021-05-24 15:54] LABS: ABG Base Excess -8.9 MMOL/L (-2.5-2.5); ABG HCO3 17.2 MMOL/L (20-26); ABG Oxygen Saturation 99.6 % (95-100); ABG PCO2 38.4 MM HG (35-48); ABG PH 7.265 (7.35-7.45); ABG TCO2 16.5 MMOL/L (23-27)
[2021-05-24 16:27] LABS: Hematocrit 27.3 VOL% (35.7-47.0); Hemoglobin 8.6 GM/DL (12.0-16.0)
[2021-05-24] MEDS ORDERED: LORazepam 2 MG/1 ML VIAL IV ONE (17:45)
[2021-05-24] MEDS ORDERED: LORazepam 2 MG/1 ML VIAL ONE (17:45)
[2021-05-24] MEDS: DEXTROSE 10% 1,000 ML IV SCH (19:06)
[2021-05-24] MEDS: MEROPENEM 500 MG in SODIUM CHLORIDE 0.9% 100 ML IV SCH (19:06)
[2021-05-24] MEDS: SEVELAMER CARBONATE 800 MG TABLET PO SCH (19:50)
[2021-05-24] MEDS: HYDROCORTISONE 100 MG VIAL IV SCH (21:23)
[2021-05-24] MEDS: LATANOPROST 0.005% OPH SOLN 2.5 ML BOTTLE BOTH EYES SCH (21:23)
[2021-05-24 22:56] LABS: Hematocrit 23.1 VOL% (35.7-47.0); Hemoglobin 7.2 GM/DL (12.0-16.0)
[2021-05-24 23:11] LABS: Calcium 8.9 MG/DL (8.5-10.1); Osmolality,Calculated 306.7 MOS/KG (273-304); Potassium 2.7 MMOL/L (3.5-5.1)
[2021-05-25] MEDS: HYDROCORTISONE 100 MG VIAL IV SCH ×4 (03:51→21:24)
[2021-05-25 04:06] LABS: Basophils # 0.1 10*3/uL (0.0-0.2); Basophils % 0.2 % (0.0-0.8); Hematocrit 27.1 VOL% (35.7-47.0); Hemoglobin 8.5 GM/DL (12.0-16.0); Immature Granulocytes Absolute 3.02 #; Lymphocytes # 0.4 10*3/uL (1.4-4.0); Lymphocytes % 1.7 % (21.3-54.2); Mean Corpuscular HGB Conc 31.4 GM/DL (32-36); Mean Platelet Volume 10.8 FL (9.6-12.0); Monocytes % 4.3 % (1.7-12.7); Neutrophils % 81.8 % (38.7-73.9); Platelet Count 159 T/CUMM (130-400); Red Blood Count 2.51 MC/CUMM (3.8-5.5); Red Cell Distribution Width 16.9 % (9.3-17.3); White Blood Count 25.3 T/CUMM (4-12)
[2021-05-25] MEDS ORDERED: NOREPINEPHRINE 4 MG/4 ML VIAL IV ONE (04:28)
[2021-05-25] MEDS: NOREPINEPHRINE 8 MG in SODIUM CHLORIDE 0.9% 242 ML IV PRN ×4 (04:33→22:24)
[2021-05-25 04:34] LABS: Albumin 2.4 G/DL (3.4-5.0); Bilirubin,Total 0.9 MG/DL (0.20-1.00); Calcium 9.4 MG/DL (8.5-10.1); Osmolality,Calculated 303.1 MOS/KG (273-304); Potassium 2.9 MMOL/L (3.5-5.1); Total Protein 6.8 G/DL (6.4-8.2)
[2021-05-25 04:44] LABS: Band Neutrophils 3 % (0-10); Hypochromasia 1+; Lymphocytes 2 % (20-55); Microcytosis 1+; Platelet Estimate Adequate; Segmented Neutrophils 93 % (50-85); Total Cells Counted 100
[2021-05-25 04:49] LABS: ABG Base Excess -10.9 MMOL/L (-2.5-2.5); ABG HCO3 15.1 MMOL/L (20-26); ABG PCO2 34.2 MM HG (35-48); ABG PH 7.264 (7.35-7.45); ABG PO2 84.2 MM HG (80-95); ABG TCO2 16.2 MMOL/L (23-27)
[2021-05-25] MEDS ORDERED: SODIUM BICARBONATE 50 MEQ/50 ML VIAL IV ONE ×3 (05:19→09:26)
[2021-05-25] MEDS: POTASSIUM CHLORIDE RIDER 20 MEQ/100 ML PREMIX IV SCH ×4 (05:20→07:00)
[2021-05-25] MEDS ORDERED: SODIUM BICARBONATE 50 MEQ/50 ML SYRINGE IV ONE (08:03)
[2021-05-25] MEDS ORDERED: EPINEPHrine 1 MG/10 ML SYRINGE ONE (08:03)
[2021-05-25] MEDS: DOCUSATE SODIUM 100 MG CAPSULE PO SCH ×2 (08:51→21:18)
[2021-05-25] MEDS: SEVELAMER CARBONATE 800 MG TABLET PO SCH ×3 (08:51→16:20)
[2021-05-25] MEDS: INSULIN REGULAR 100 UNIT/ML SUBCUT SCH ×4 (08:51→21:18)
[2021-05-25] MEDS: GABAPENTIN 100 MG CAPSULE PO SCH ×2 (08:52→21:18)
[2021-05-25] MEDS ORDERED: LORazepam 2 MG/1 ML VIAL ONE (08:54)
[2021-05-25] MEDS: LORazepam 2 MG/1 ML VIAL IV PRN ×2 (08:59→19:27)
[2021-05-25 09:03] LABS: ABG Base Excess -12.6 MMOL/L (-2.5-2.5); ABG HCO3 14.6 MMOL/L (20-26); ABG Oxygen Saturation 99.7 % (95-100); ABG PCO2 46.8 MM HG (35-48); ABG TCO2 15.3 MMOL/L (23-27)
[2021-05-25] MEDS: MEROPENEM 500 MG in SODIUM CHLORIDE 0.9% 100 ML IV SCH (09:03)
[2021-05-25 09:04] LABS: ABG PH 7.144 (7.35-7.45)
[2021-05-25] MEDS: PANTOPRAZOLE 40 MG VIAL IV SCH (09:08)
[2021-05-25 09:27] LABS: Albumin 2.4 G/DL (3.4-5.0); Bilirubin,Total 0.7 MG/DL (0.20-1.00); Calcium 9.6 MG/DL (8.5-10.1); Osmolality,Calculated 304.8 MOS/KG (273-304); Potassium 3.4 MMOL/L (3.5-5.1); Total Protein 6.8 G/DL (6.4-8.2)
[2021-05-25] MEDS: FLUDROCORTISONE 0.1 MG TABLET PER TUBE SCH ×2 (09:45→21:18)
[2021-05-25] MEDS ORDERED: VANCOMYCIN INJ 2,000 MG in SODIUM CHLORIDE 0.9% 500 ML IV ONE (10:30)
[2021-05-25] MEDS ORDERED: VANCOMYCIN INJ 750 MG in SODIUM CHLORIDE 0.9% 250 ML IV PRN (10:51)
[2021-05-25] MEDS: SODIUM BICARB INJ 100 MEQ in DEXTROSE 5% 1,000 ML IV SCH ×2 (11:27→21:24)
[2021-05-25] MEDS: DEXTROSE 10% 1,000 ML IV SCH (14:50)
[2021-05-25] MEDS: LATANOPROST 0.005% OPH SOLN 2.5 ML BOTTLE BOTH EYES SCH (21:18)
[2021-05-26] MEDS: LORazepam 2 MG/1 ML VIAL IV PRN ×4 (00:31→19:37)
[2021-05-26 04:46] LABS: Basophils # 0.1 10*3/uL (0.0-0.2); Basophils % 0.5 % (0.0-0.8); Eosinophils % 0.2 % (0.00-10.9); Hematocrit 23.6 VOL% (35.7-47.0); Hemoglobin 7.7 GM/DL (12.0-16.0); Immature Granulocytes % 1.2 %; Immature Granulocytes Absolute 0.31 #; Lymphocytes # 0.3 10*3/uL (1.4-4.0); Lymphocytes % 1.2 % (21.3-54.2); Mean Corpuscular HGB Conc 32.6 GM/DL (32-36); Mean Corpuscular Volume 106.3 FL (87-102); Mean Platelet Volume 10.3 FL (9.6-12.0); Monocytes % 4.6 % (1.7-12.7); Neutrophils % 92.3 % (38.7-73.9); Platelet Count 134 T/CUMM (130-400); Red Blood Count 2.22 MC/CUMM (3.8-5.5); Red Cell Distribution Width 17.2 % (9.3-17.3); White Blood Count 24.9 T/CUMM (4-12)
[2021-05-26 05:04] LABS: Calcium 9.5 MG/DL (8.5-10.1); Potassium 2.8 MMOL/L (3.5-5.1)
[2021-05-26 05:05] LABS: Hypochromasia 1+; Lymphocytes 1 % (20-55); Microcytosis 1+; Platelet Estimate Normal; Segmented Neutrophils 95 % (50-85); Total Cells Counted 100
[2021-05-26] MEDS: HYDROCORTISONE 100 MG VIAL IV SCH ×4 (05:39→21:01)
[2021-05-26] MEDS: NOREPINEPHRINE 8 MG in SODIUM CHLORIDE 0.9% 242 ML IV PRN (06:46)
[2021-05-26] MEDS: INSULIN REGULAR 100 UNIT/ML SUBCUT SCH ×3 (07:52→17:41)
[2021-05-26] MEDS: SEVELAMER CARBONATE 800 MG TABLET PO SCH ×3 (07:57→16:28)
[2021-05-26] MEDS: MEROPENEM 500 MG in SODIUM CHLORIDE 0.9% 100 ML IV SCH (08:03)
[2021-05-26] MEDS: FLUDROCORTISONE 0.1 MG TABLET PER TUBE SCH ×2 (08:03→20:57)
[2021-05-26] MEDS: GABAPENTIN 100 MG CAPSULE PO SCH ×2 (08:03→20:56)
[2021-05-26] MEDS: PANTOPRAZOLE 40 MG VIAL IV SCH (08:06)
[2021-05-26] MEDS: DOCUSATE SODIUM 100 MG CAPSULE PO SCH ×2 (08:08→20:58)
[2021-05-26] MEDS: POTASSIUM CHLORIDE 20 MEQ PACK NG SCH ×2 (08:28→13:27)
[2021-05-26 08:48] LABS: ABG HCO3 27.1 MMOL/L (20-26); ABG Oxygen Saturation 99.4 % (95-100); ABG PCO2 35.4 MM HG (35-48); ABG TCO2 24.1 MMOL/L (23-27)
[2021-05-26] MEDS ORDERED: SODIUM BICARB INJ 150 MEQ in DEXTROSE 5% 1,000 ML IV SCH (09:00)
[2021-05-26] MEDS: SODIUM BICARB INJ 100 MEQ in DEXTROSE 5% 1,000 ML IV SCH (09:55)
[2021-05-26] MEDS ORDERED: VANCOMYCIN INJ 750 MG in SODIUM CHLORIDE 0.9% 250 ML IV ONE (17:00)
[2021-05-26] MEDS: LATANOPROST 0.005% OPH SOLN 2.5 ML BOTTLE BOTH EYES SCH (20:57)
[2021-05-26] MEDS: HALOPERIDOL 5 MG/ML AMP IM PRN (21:15)
[2021-05-27] MEDS: INSULIN REGULAR 100 UNIT/ML SUBCUT SCH ×5 (02:14→23:30)
[2021-05-27 02:58] LABS: ABG Base Excess 3.2 MMOL/L (-2.5-2.5); ABG HCO3 27.3 MMOL/L (20-26); ABG Oxygen Saturation 99.5 % (95-100); ABG PCO2 33.4 MM HG (35-48); ABG PH 7.505 (7.35-7.45); ABG TCO2 24.8 MMOL/L (23-27)
[2021-05-27] MEDS: HYDROCORTISONE 100 MG VIAL IV SCH ×4 (04:03→21:37)
[2021-05-27] MEDS: LORazepam 2 MG/1 ML VIAL IV PRN (04:03)
[2021-05-27 04:45] LABS: Basophils % 0.2 % (0.0-0.8); Hematocrit 22.4 VOL% (35.7-47.0); Hemoglobin 6.9 GM/DL (12.0-16.0); Immature Granulocytes % 1.2 %; Immature Granulocytes Absolute 0.23 #; Lymphocytes # 0.5 10*3/uL (1.4-4.0); Lymphocytes % 2.4 % (21.3-54.2); Mean Corpuscular HGB Conc 30.8 GM/DL (32-36); Mean Corpuscular Volume 108.2 FL (87-102); Mean Platelet Volume 10.6 FL (9.6-12.0); Monocytes % 6.5 % (1.7-12.7); Neutrophils % 89.7 % (38.7-73.9); Platelet Count 95 T/CUMM (130-400); Red Blood Count 2.07 MC/CUMM (3.8-5.5); White Blood Count 19.1 T/CUMM (4-12)
[2021-05-27 04:56] LABS: Calcium 9.1 MG/DL (8.5-10.1); Osmolality,Calculated 298.7 MOS/KG (273-304); Potassium 2.8 MMOL/L (3.5-5.1)
[2021-05-27 05:07] LABS: Hypochromasia 2+; Lymphocytes 4 % (20-55); Microcytosis 1+; Platelet Estimate Decreased; Segmented Neutrophils 90 % (50-85); Total Cells Counted 100
[2021-05-27] MEDS: SEVELAMER CARBONATE 800 MG TABLET PO SCH ×3 (08:47→16:06)
[2021-05-27] MEDS: POTASSIUM CHLORIDE 20 MEQ PACK NG SCH ×3 (08:47→16:05)
[2021-05-27] MEDS: FLUDROCORTISONE 0.1 MG TABLET PER TUBE SCH ×2 (08:48→21:37)
[2021-05-27] MEDS: GABAPENTIN 100 MG CAPSULE PO SCH ×2 (08:48→21:37)
[2021-05-27] MEDS: LEVOFLOXACIN 750 MG TABLET PER TUBE SCH (08:48)
[2021-05-27] MEDS: DOCUSATE SODIUM 100 MG CAPSULE PO SCH ×2 (08:58→21:36)
[2021-05-27] MEDS: PANTOPRAZOLE 40 MG VIAL IV SCH (10:19)
[2021-05-27] MEDS ORDERED: VANCOMYCIN INJ 750 MG in SODIUM CHLORIDE 0.9% 250 ML IV ONE (17:00)
[2021-05-27] MEDS: LATANOPROST 0.005% OPH SOLN 2.5 ML BOTTLE BOTH EYES SCH (21:37)
[2021-05-28 04:13] LABS: ABG Base Excess 1.6 MMOL/L (-2.5-2.5); ABG HCO3 25.2 MMOL/L (20-26); ABG Oxygen Saturation 97.3 % (95-100); ABG PCO2 35.6 MM HG (35-48); ABG PH 7.467 (7.35-7.45); ABG PO2 99.6 MM HG (80-95); ABG TCO2 26.2 MMOL/L (23-27)
[2021-05-28 06:09] LABS: Basophils % 0.3 % (0.0-0.8); Hematocrit 29.5 VOL% (35.7-47.0); Immature Granulocytes Absolute 0.15 #; Lymphocytes # 0.5 10*3/uL (1.4-4.0); Mean Corpuscular HGB Conc 31.5 GM/DL (32-36); Mean Corpuscular Volume 106.1 FL (87-102); Mean Platelet Volume 11.8 FL (9.6-12.0); Monocytes % 9.6 % (1.7-12.7); NRBC # 0.04 10*3/uL; Neutrophils % 86.1 % (38.7-73.9); Platelet Count 73 T/CUMM (130-400); Red Blood Count 2.78 MC/CUMM (3.8-5.5); Red Cell Distribution Width 18.8 % (9.3-17.3); White Blood Count 15.5 T/CUMM (4-12)
[2021-05-28 06:10] LABS: Hemoglobin 9.3 GM/DL (12.0-16.0)
[2021-05-28 06:26] LABS: Calcium 9.7 MG/DL (8.5-10.1); Osmolality,Calculated 291.8 MOS/KG (273-304); Potassium 3.3 MMOL/L (3.5-5.1)
[2021-05-28 06:32] LABS: Hypochromasia 1+; Lymphocytes 2 % (20-55); Microcytosis 1+; Nucleated Red Blood Cells 1 (0-5); Platelet Estimate Decreased; Segmented Neutrophils 94 % (50-85); Total Cells Counted 100
[2021-05-28] MEDS: HYDROCORTISONE 100 MG VIAL IV SCH ×4 (06:53→21:06)
[2021-05-28] MEDS: INSULIN REGULAR 100 UNIT/ML SUBCUT SCH ×3 (07:44→18:23)
[2021-05-28] MEDS: DOCUSATE SODIUM 100 MG CAPSULE PO SCH ×2 (08:46→20:30)
[2021-05-28] MEDS: SEVELAMER CARBONATE 800 MG TABLET PO SCH ×3 (08:47→16:38)
[2021-05-28] MEDS: FLUDROCORTISONE 0.1 MG TABLET PER TUBE SCH ×2 (08:47→20:29)
[2021-05-28] MEDS: GABAPENTIN 100 MG CAPSULE PO SCH ×2 (08:47→20:29)
[2021-05-28] MEDS: PANTOPRAZOLE 40 MG VIAL IV SCH (08:48)
[2021-05-28] MEDS: LORazepam 2 MG/1 ML VIAL IV PRN ×2 (16:32→21:57)
[2021-05-28] MEDS ORDERED: VANCOMYCIN INJ 750 MG in SODIUM CHLORIDE 0.9% 250 ML IV ONE (17:00)
[2021-05-28] MEDS: LATANOPROST 0.005% OPH SOLN 2.5 ML BOTTLE BOTH EYES SCH (20:29)
[2021-05-29] MEDS: MORPHINE 2 MG/1 ML SYRINGE IV PRN ×3 (00:10→21:35)
[2021-05-29] MEDS: INSULIN REGULAR 100 UNIT/ML SUBCUT SCH ×4 (00:19→18:05)
[2021-05-29] MEDS: HYDROCORTISONE 100 MG VIAL IV SCH ×3 (04:30→16:50)
[2021-05-29 06:51] LABS: Basophils % 0.3 % (0.0-0.8); Eosinophils % 0.1 % (0.00-10.9); Hematocrit 35.2 VOL% (35.7-47.0); Immature Granulocytes % 1.2 %; Immature Granulocytes Absolute 0.18 #; Lymphocytes # 1.1 10*3/uL (1.4-4.0); Lymphocytes % 7.5 % (21.3-54.2); Mean Corpuscular HGB Conc 31.3 GM/DL (32-36); Mean Corpuscular Volume 103.2 FL (87-102); Mean Platelet Volume 11.6 FL (9.6-12.0); Monocytes % 6.2 % (1.7-12.7); Neutrophils % 84.7 % (38.7-73.9); Red Blood Count 3.41 MC/CUMM (3.8-5.5); Red Cell Distribution Width 17.7 % (9.3-17.3); White Blood Count 15.1 T/CUMM (4-12)
[2021-05-29 07:01] LABS: Calcium 9.9 MG/DL (8.5-10.1); Osmolality,Calculated 299.5 MOS/KG (273-304); Potassium 3.4 MMOL/L (3.5-5.1)
[2021-05-29 07:22] LABS: Platelet Count 84 T/CUMM (130-400)
[2021-05-29] MEDS: SEVELAMER CARBONATE 800 MG TABLET PO SCH ×3 (08:00→17:00)
[2021-05-29 08:02] LABS: Anisocytosis 1+; Macrocytosis 1+; Platelet Estimate Decreased
[2021-05-29 08:03] LABS: Ovalocytes Few; Tear Drop Cells Few
[2021-05-29] MEDS: DOCUSATE SODIUM 100 MG CAPSULE PO SCH ×2 (09:00→23:49)
[2021-05-29] MEDS: PANTOPRAZOLE 40 MG VIAL IV SCH (09:20)
[2021-05-29] MEDS: GABAPENTIN 100 MG CAPSULE PO SCH ×2 (11:20→21:00)
[2021-05-29] MEDS: LEVOFLOXACIN 750 MG TABLET PER TUBE SCH (11:20)
[2021-05-29] MEDS: FLUDROCORTISONE 0.1 MG TABLET PER TUBE SCH ×2 (11:20→21:00)
[2021-05-29] MEDS ORDERED: VANCOMYCIN INJ 750 MG in SODIUM CHLORIDE 0.9% 250 ML IV ONE (17:00)
[2021-05-29] MEDS: QUEtiapine 25 MG TABLET PO SCH (21:00)
[2021-05-29] MEDS: LATANOPROST 0.005% OPH SOLN 2.5 ML BOTTLE BOTH EYES SCH (21:00)
[2021-05-30] MEDS: HYDROCORTISONE 100 MG VIAL IV SCH ×4 (00:05→17:04)
[2021-05-30] MEDS: INSULIN REGULAR 100 UNIT/ML SUBCUT SCH ×4 (01:15→21:36)
[2021-05-30] MEDS: HALOPERIDOL 5 MG/ML AMP IM PRN (02:18)
[2021-05-30 06:19] LABS: Calcium 9.2 MG/DL (8.5-10.1); Potassium 3.5 MMOL/L (3.5-5.1)
[2021-05-30] MEDS: SEVELAMER CARBONATE 800 MG TABLET PO SCH ×3 (07:27→17:20)
[2021-05-30] MEDS: MORPHINE 2 MG/1 ML SYRINGE IV PRN ×2 (08:25→22:12)
[2021-05-30] MEDS: PANTOPRAZOLE 40 MG VIAL IV SCH (10:12)
[2021-05-30] MEDS: FLUDROCORTISONE 0.1 MG TABLET PER TUBE SCH (10:14)
[2021-05-30] MEDS: GABAPENTIN 100 MG CAPSULE PO SCH ×2 (10:15→21:35)
[2021-05-30] MEDS: DOCUSATE SODIUM 100 MG CAPSULE PO SCH ×2 (10:15→21:35)
[2021-05-30] MEDS: QUEtiapine 25 MG TABLET PO SCH ×2 (10:15→21:35)
[2021-05-30] MEDS ORDERED: PERMETHRIN 5% CREAM 60 GM TUBE TOP ONE ×3 (11:30→22:30)
[2021-05-30] MEDS ORDERED: VANCOMYCIN INJ 750 MG in SODIUM CHLORIDE 0.9% 250 ML IV ONE (18:00)
[2021-05-30] MEDS: LATANOPROST 0.005% OPH SOLN 2.5 ML BOTTLE BOTH EYES SCH (21:38)
[2021-05-31] MEDS: HYDROCORTISONE 100 MG VIAL IV SCH ×2 (01:12→10:21)
[2021-05-31] MEDS: INSULIN REGULAR 100 UNIT/ML SUBCUT SCH ×2 (01:16→06:22)
[2021-05-31 05:48] LABS: Basophils % 0.2 % (0.0-0.8); Hematocrit 36.3 VOL% (35.7-47.0); Hemoglobin 11.8 GM/DL (12.0-16.0); Immature Granulocytes % 1.8 %; Immature Granulocytes Absolute 0.36 #; Lymphocytes # 0.4 10*3/uL (1.4-4.0); Mean Corpuscular HGB Conc 32.5 GM/DL (32-36); Mean Corpuscular Volume 101.4 FL (87-102); Mean Platelet Volume 11.5 FL (9.6-12.0); Monocytes % 4.7 % (1.7-12.7); Neutrophils % 91.3 % (38.7-73.9); Platelet Count 109 T/CUMM (130-400); Red Blood Count 3.58 MC/CUMM (3.8-5.5); Red Cell Distribution Width 16.2 % (9.3-17.3); White Blood Count 19.6 T/CUMM (4-12)
[2021-05-31 06:02] LABS: Calcium 9.6 MG/DL (8.5-10.1); Osmolality,Calculated 295.7 MOS/KG (273-304); Potassium 3.3 MMOL/L (3.5-5.1)
[2021-05-31 06:15] LABS: Lymphocytes 1 % (20-55); Platelet Estimate Decreased; Segmented Neutrophils 93 % (50-85); Total Cells Counted 100
[2021-05-31] MEDS: LEVOFLOXACIN 750 MG TABLET PER TUBE SCH (10:20)
[2021-05-31] MEDS: DOCUSATE SODIUM 100 MG CAPSULE PO SCH (10:21)
[2021-05-31] MEDS: SEVELAMER CARBONATE 800 MG TABLET PO SCH (10:21)
[2021-05-31] MEDS: FLUDROCORTISONE 0.1 MG TABLET PER TUBE SCH (10:21)
[2021-05-31] MEDS: GABAPENTIN 100 MG CAPSULE PO SCH (10:21)
[2021-05-31] MEDS: PANTOPRAZOLE 40 MG VIAL IV SCH (10:22)
[2021-05-31] MEDS: QUEtiapine 25 MG TABLET PO SCH (10:22)
[2021-05-31 12:02] VITALS: BP 121/75
== END 2021-05-31 11:55 | disposition left against medical advice (07) | DRG 871 ==
LOC: N.5E 21:44 → SUATTDRO 21:44 → N.ICU 05-24 04:17 → N.3E 05-30 17:24
PROVIDERS: ADMIT Emergency Medicine; ATTEND Emergency Medicine

== ENCOUNTER 2021-06-13 23:50 | Inpatient (IN) ==
[2021-06-14] MEDS ORDERED: DEXTROSE 50% 25 GM/50 ML SYRINGE IV PRN (02:49)
[2021-06-14] MEDS ORDERED: ZALEPLON 5 MG CAPSULE PO PRN (02:49)
[2021-06-14] MEDS ORDERED: ACETAMINOPHEN 325 MG TABLET PO PRN (02:49)
[2021-06-14] MEDS ORDERED: GLUCAGON 1 MG VIAL IM PRN ×2 (02:49→11:35)
[2021-06-14] MEDS ORDERED: hydrALAZINE 20 MG/1 ML VIAL IV PRN (02:49)
[2021-06-14] MEDS ORDERED: SODIUM CHLORIDE 0.9% 1,000 ML IV PRN ×2 (03:52→12:59)
[2021-06-14 05:42] LABS: Basophils % 0.3 % (0.0-0.8); Eosinophils # 0.1 10*3/uL (0.0-0.87); Eosinophils % 1.5 % (0.00-10.9); Hematocrit 22.2 VOL% (35.7-47.0); Immature Granulocytes % 0.7 %; Immature Granulocytes Absolute 0.04 #; Lymphocytes # 1.1 10*3/uL (1.4-4.0); Lymphocytes % 18.1 % (21.3-54.2); Mean Corpuscular HGB Conc 31.5 GM/DL (32-36); Mean Corpuscular Volume 107.8 FL (87-102); Mean Platelet Volume 10.4 FL (9.6-12.0); Monocytes % 6.3 % (1.7-12.7); Neutrophils % 73.1 % (38.7-73.9); Platelet Count 159 T/CUMM (130-400); Red Blood Count 2.06 MC/CUMM (3.8-5.5); White Blood Count 5.9 T/CUMM (4-12)
[2021-06-14 05:42] LABS: Albumin 2.2 G/DL (3.4-5.0); Bilirubin,Total 0.7 MG/DL (0.20-1.00); Calcium 9.7 MG/DL (8.5-10.1); Osmolality,Calculated 274.1 MOS/KG (273-304); Potassium 4.1 MMOL/L (3.5-5.1); Total Protein 6.7 G/DL (6.4-8.2)
[2021-06-14] MEDS: INSULIN LISPRO 100 UNIT/ML SUBCUT SCH ×4 (08:58→21:59)
[2021-06-14] MEDS ORDERED: DEXTROSE 50% 25 GM/50 ML VIAL IV PRN (11:35)
[2021-06-14 12:29] LABS: Hematocrit 21.6 VOL% (35.7-47.0); Hemoglobin 6.6 GM/DL (12.0-16.0)
[2021-06-14] MEDS: PANTOPRAZOLE 40 MG VIAL IV SCH ×2 (14:17→20:43)
[2021-06-14] MEDS: MORPHINE 2 MG/1 ML SYRINGE IV PRN ×2 (16:52→20:51)
[2021-06-15 06:52] LABS: Basophils % 0.5 % (0.0-0.8); Eosinophils # 0.1 10*3/uL (0.0-0.87); Eosinophils % 1.6 % (0.00-10.9); Hematocrit 23.2 VOL% (35.7-47.0); Hemoglobin 7.4 GM/DL (12.0-16.0); Immature Granulocytes % 0.6 %; Immature Granulocytes Absolute 0.04 #; Lymphocytes # 1.2 10*3/uL (1.4-4.0); Lymphocytes % 18.5 % (21.3-54.2); Mean Corpuscular HGB Conc 31.9 GM/DL (32-36); Monocytes % 7.4 % (1.7-12.7); Neutrophils % 71.4 % (38.7-73.9); Platelet Count 139 T/CUMM (130-400); Red Blood Count 2.23 MC/CUMM (3.8-5.5); Red Cell Distribution Width 15.9 % (9.3-17.3); White Blood Count 6.4 T/CUMM (4-12)
[2021-06-15 07:05] LABS: Calcium 9.1 MG/DL (8.5-10.1); Potassium 4.3 MMOL/L (3.5-5.1)
[2021-06-15] MEDS: MORPHINE 2 MG/1 ML SYRINGE IV PRN ×2 (07:30→16:34)
[2021-06-15] MEDS: INSULIN LISPRO 100 UNIT/ML SUBCUT SCH ×4 (08:22→23:40)
[2021-06-15] MEDS: PANTOPRAZOLE 40 MG VIAL IV SCH ×2 (08:51→21:41)
[2021-06-15] MEDS: carvediloL 6.25 MG TABLET PO SCH ×2 (16:53→21:40)
[2021-06-15] MEDS: LOSARTAN 25 MG TABLET PO SCH (16:53)
[2021-06-15] MEDS: IBUPROFEN 600 MG TABLET PO SCH ×2 (17:33→21:41)
[2021-06-15] MEDS: COLCHICINE 0.6 MG CAPSULE PO SCH ×2 (17:33→21:41)
[2021-06-16] MEDS: MORPHINE 2 MG/1 ML SYRINGE IV PRN (03:11)
[2021-06-16] MEDS: INSULIN LISPRO 100 UNIT/ML SUBCUT SCH ×2 (07:30→11:38)
[2021-06-16 07:46] LABS: Calcium 9.5 MG/DL (8.5-10.1); Potassium 3.9 MMOL/L (3.5-5.1); VLDL Cholesterol 12.8 MG/DL
[2021-06-16] MEDS ORDERED: ASPIRIN EC 81 MG TABLET PO SCH (09:00)
[2021-06-16 09:15] LABS: Basophils % 0.3 % (0.0-0.8); Eosinophils # 0.2 10*3/uL (0.0-0.87); Eosinophils % 3.7 % (0.00-10.9); Hematocrit 32.6 VOL% (35.7-47.0); Immature Granulocytes % 0.5 %; Immature Granulocytes Absolute 0.03 #; Lymphocytes # 1.1 10*3/uL (1.4-4.0); Lymphocytes % 18.5 % (21.3-54.2); Mean Corpuscular HGB Conc 31.9 GM/DL (32-36); Mean Corpuscular Volume 104.5 FL (87-102); Mean Platelet Volume 10.2 FL (9.6-12.0); Monocytes % 5.8 % (1.7-12.7); Neutrophils % 71.2 % (38.7-73.9); Platelet Count 158 T/CUMM (130-400); Red Cell Distribution Width 15.9 % (9.3-17.3); White Blood Count 5.7 T/CUMM (4-12)
[2021-06-16 09:21] LABS: Red Blood Count 3.12 MC/CUMM (3.8-5.5)
[2021-06-16 09:22] LABS: Hemoglobin 10.4 GM/DL (12.0-16.0)
[2021-06-16] MEDS: LOSARTAN 25 MG TABLET PO SCH (09:57)
[2021-06-16] MEDS: PANTOPRAZOLE 40 MG VIAL IV SCH (09:57)
[2021-06-16] MEDS: COLCHICINE 0.6 MG CAPSULE PO SCH (09:57)
[2021-06-16] MEDS: carvediloL 6.25 MG TABLET PO SCH (09:57)
[2021-06-16] MEDS: IBUPROFEN 600 MG TABLET PO SCH (09:57)
[2021-06-16 11:57] VITALS: BP 150/87
[2021-06-16] MEDS ORDERED: COLLAGENASE OINT 30 GM TUBE TOP SCH (12:48)
[2021-06-16] MEDS ORDERED: SKIN HEALING OINT (AQUAPHOR) 50 GM TUBE TOP PRN (12:53)
== END 2021-06-16 15:42 | disposition home health service (06) | DRG 291 ==
LOC: N.TELEN 06-14 00:10 → SUATTDRO 06-14 02:09
PROVIDERS: ADMIT Internal Medicine; ATTEND Emergency Medicine